=== PATIENT | female | born 1940 | race Caucasian/White ===

== ENCOUNTER 2019-10-31 09:52 | Outpatient (CLI) | payer MEDICARE, SELFPAY ==
[2019-10-31 11:28] LABS: Hemoglobin A1C 7.5 % (<5.7)
[2019-10-31 11:32] LABS: Alanine Aminotransferase 22 U/L (4-35); Albumin Level 4.6 g/dL (3.5-5.1); Alkaline Phosphatase 76 U/L (38-126); Aspartate Amino Transferase 33 U/L (14-36); Bilirubin,Total 0.5 mg/dL (0.2-1.3); Blood Urea Nitrogen 16 mg/dL (7-17); Calcium 9.3 mg/dL (8.4-10.2); Carbon Dioxide 26 mmol/L (22-30); Chloride 102 mmol/L (98-107); Cholesterol 146 mg/dL (0-200); Estimated Glomerular Filt Rate > 60; Glucose 155 mg/dL (65-105); HDL Direct 78 mg/dL; Potassium 4.7 mmol/L (3.4-5.0); Sodium 138 mmol/L (137-145); Triglycerides 74 mg/dL (<150)
[2019-10-31 11:37] LABS: MALB Creatinine Ratio 19.2 mg/g (0-30); Microalbumin Urine Random 29.7 mg/L (0-16.7)
[2019-10-31 11:43] LABS: LDL Cholesterol Direct 50 mg/dL
[2019-10-31 11:48] LABS: Free T4 Free Thyroxine 1.21 ng/mL (0.78-2.19)
[2019-10-31 12:03] LABS: Thyroid Stimulating Hormone 0.215 uIU/mL (0.465-4.680)
== END 2019-10-31 09:53 | disposition home or self-care (01) ==
PROVIDERS: PCP Internal Medicine; Visit Provider Internal Medicine
DX: Z79.899 Other long term (current) drug therapy (principal); I10 Essential (primary) hypertension; E03.9 Hypothyroidism, unspecified; E78.5 Hyperlipidemia, unspecified; R79.9 Abnormal finding of blood chemistry, unspecified
CPT/HCPCS: 36415; 80048; 80061; 80076; 82043; 82542; 83036; 84439; 84443

== ENCOUNTER 2019-11-04 11:19 | Outpatient (CLI) | payer MEDICARE, SELFPAY ==
--- NOTE | ~2019-11-04 | XR_ITS ---
EXAMINATION: XR hip BI wo pelvis EXAM DATE: 11/04/2019 11:46 INDICATION: No known recent injury provided at this time. Pain of the hips bilaterally. Low back pain . TECHNIQUE: Each hip imaged independently (separate right and also left hip) 'frog leg' and frontal p rojections for interpretation. There is no prior study for comparison. FINDINGS: No radiographic evidence of hip avascular necrosis. There is mild symmetric bilateral hip primary osteoarthritis. There are no acute fractures or dislocations identified. There is no subcut aneous gas. The soft tissue is unremarkable. Lower lumbar fusion hardware. IMPRESSION: Mild bilateral hip osteoarthritis. Reviewed, dictated and finalized at location A.
--- NOTE | ~2019-11-04 | XR_ITS ---
XR lumbar spine 2-3V DATE: 11/04/2019 11:46 INDICATION: Low back pain TECHNIQUE: AP, lateral, coned lateral lumbosacral views COMPARISON: 09/14/2018 MRI lumbar spine 08/29/2018 lumbar spine FINDINGS: Diffuse osteopenia. Mild dextroscoliosis of the lumbar spine. Status post L4 laminectomy and posterior spinal fusion by posterior bone grafts at L4-5 and pedicle s crews and rods at L3-L5 bilaterally. There is some lucency along the pedicle screws particularly at L 3 which may indicate loosening. There is degenerative change at the apophyseal joints in the lumbosacral area with associated minimal grade 1 anterolisthesis at L4-5. Moderate degenerative disc disease at L3-4 and L4-5. The sacroiliac joints appear normal. IMPRESSION: Status post L4 laminectomy and posterior spinal fusion at L3-L5 Mild dextro scoliosis Diffuse osteopenia Reviewed, dictated and finalized at location B.
--- NOTE | ~2019-11-04 | XR_ITS ---
XR sacroiliac joints min 3V DATE: 11/04/2019 11:46 INDICATION: Low back pain. No injury. TECHNIQUE: AP and bilateral oblique views of the sacroiliac joints COMPARISON: 07/26/2017 lumbar spine FINDINGS: The sacroiliac joints are intact without evidence of fracture, diastases or significant deg enerative change or ankylosis. Bilateral posterior lumbar spinal fusion is noted. IMPRESSION: Unremarkable sacroiliac joints Reviewed, dictated and finalized at Location A. Reviewed, dictated and finalized at location B.
== END 2019-11-04 11:20 | disposition home or self-care (01) ==
PROVIDERS: PCP Internal Medicine; Visit Provider Internal Medicine
DX: M16.0 Bilateral primary osteoarthritis of hip (principal); Z98.1 Arthrodesis status; M85.88 Other specified disorders of bone density and structure, other site; M51.36 Other intervertebral disc degeneration, lumbar region
CPT/HCPCS: 72100; 72202; 73521

== ENCOUNTER 2019-12-08 13:47 | Outpatient (CLI) | payer MEDICARE, SELFPAY ==
--- NOTE | ~2019-12-08 | DEXA_ITS ---
Bone Density Report Name: Carolina Carlisle Age: 79 Sex: Female Ethnicity: White Date of : 1940 Indication: osteopenia; monitoring treatment; height loss; prior fracture; Referring Provider: POLO PHAM Study: Bone densitometry was performed. Exam Date: December 08, 2019 Accession number: [id number] Bone Density: Region BMD T-score Z-score Classification AP Spine (L1, L2) 0.803 -1.6 0.8 Osteopenia Femoral Neck (Left) 0.584 -2.4 -0.2 Osteopenia Total Hip (Left) 0.756 -1.5 0.4 Osteopenia Total Hip Bilateral Avg 0.750 -1.6 0.4 Osteopenia Femoral Neck (Right) 0.612 -2.1 0.1 Osteopenia Total Hip (Right) 0.743 -1.6 0.3 Osteopenia World Health Organization criteria for BMD impression classify patients as: Normal (T-score at or above -1.0), Osteopenia (T-score between -1.0 and -2.5), or Osteoporosis (T-score at or below -2.5). 10-year Fracture Risk: FRAX not reported because: Prior hip or vertebral fracture Treated for osteoporosis Previous Exams: Region Exam Age BMD T-score BMD Change BMD Change Date g/cm2 vs Baseline vs Previous AP Spine(L1, L2) 12/08/2019 79 0.803 -1.6 -0.077(-8.8%)# -0.092(-10.3%) 10/10/2010 70 0.895 -0.8 0.015(1.7%) -0.018(-2.0%) 11/20/2006 66 0.913 -0.6 0.033(3.7%)* 0.033(3.7%)* 08/06/2003 63 0.880 -0.9 Total Hip(Left) 12/08/2019 79 0.756 -1.5 -0.085(-10.1%) -0.056(-6.9%)# 10/10/2010 70 0.812 -1.1 -0.029(-3.4%)* 0.040(5.1%)* 11/20/2006 66 0.772 -1.4 -0.069(-8.2%)* -0.069(-8.2%)* 08/06/2003 63 0.841 -0.8 Total Hip(Right) 12/08/2019 79 0.743 -1.6 -0.105(-12.4%) -0.061(-7.6%)# 10/10/2010 70 0.804 -1.1 -0.044(-5.2%)* 0.013(1.6%) 11/20/2006 66 0.791 -1.2 -0.057(-6.7%)* -0.057(-6.7%)* 08/06/2003 63 0.848 -0.8 *Denotes significance at 95% confidence level, LSC for AP Spine = 0.022 g/cm2, LSC for Total Hip = 0.027 g/cm2 Clinical Information Provided by Patient: Have had a previous hip or vertebral fracture Has had a low trauma fracture Is being treated for osteoporosis Has used the following medications: Vitamin D Patient maximum height was 66 Menopause Age: 57 No regular weight bearing exercise Drinks caffeinated beverages Onset of menses at age 16 Number of children 2 Impression: The patient has low bone mass, based on the Left Femoral Neck T-score. The patient has risk factors, including: previous fracture. No significant bone loss was observed
== END 2019-12-08 13:48 | disposition home or self-care (01) ==
LOC: ANHIMG 13:48
PROVIDERS: PCP Internal Medicine; Visit Provider Internal Medicine
DX: Z78.0 Asymptomatic menopausal state (principal); M85.89 Other specified disorders of bone density and structure, multiple sites
CPT/HCPCS: 77080

== ENCOUNTER 2019-12-16 07:37 | Outpatient (CLI) | payer MEDICARE, SELFPAY ==
--- NOTE | 2019-12-16 | ECHO_ITS ---
Patient Info Name: Carolina Carlisle Age: 79 years : 1940 Gender: Female Ht: 65 in Wt: 154 lbs BSA: 1.80 m2 HR: 64 bpm BP: 149 / 70 mmHg Technical Quality: Good Exam Date: 12/16/2019 8:01 AM Exam Location: [facility]monary Patient Status: Outpatient Admit Date: 12/16/2019 Staff Ordering Physician: Min Logan MD Public Health Analyst: Cristina Andre RDCS Attending Provider: Min Logan MD Referring Physician: Doreen BENAVIDES; Exam Type: CA echo doppler color flow Study Info Indications R07.89 - Other chest pain Complete two-dimensional, color flow and Doppler transthoracic echocardiogram is performed. Summary 1. Complete two-dimensional, color flow and Doppler transthoracic echocardiogram is performed. 2. Left ventricular chamber dimension is normal. 3. Left ventricular systolic function is normal, estimated at 60-65%. 4. The left ventricular diastolic function is grade I diastolic dysfunction. 5. E/e' 10 is mildly elevated. 6. Global longitudinal strain is normal at -20.9%. 7. Left atrial chamber dimension is mildly enlarged. 8. There is mild aortic valve sclerosis. 9. Dilated inferior vena cava with >50% collapse upon inspiration consistent with elevated right atrial pressure, 10 mmHg. Left Ventricle E/e' 10 is mildly elevated. Global longitudinal strain is normal at -20.9%. Left ventricular chamber dimension is normal. Left ventricular systolic function is normal, estimated at 60-65%. The left ventricular diastolic function is grade I diastolic dysfunction. Right Ventricle Right ventricular chamber dimension is normal. Right ventricular systolic function is normal. Left Atria Left atrial chamber dimension is mildly enlarged. Right Atria Right atrial chamber dimension is normal. Aortic Valve The aortic valve is trileaflet. There is mild aortic valve sclerosis. There is no aortic valve stenosis. There is no aortic valve regurgitation. Pulmonic Valve There is no pulmonic regurgitation. Mitral Valve There is no mitral valve stenosis. There is no mitral valve regurgitation. Tricuspid Valve There is no tricuspid valve regurgitation. Pericardium/Pleural There is no pericardial effusion. Inferior Vena Cava Dilated inferior vena cava with >50% collapse upon inspiration consistent with elevated right atrial pressure, 10 mmHg. Aorta The aortic root size at the sinus of Valsalva is normal. Left Ventricular Outflow Tract Name Value Normal LVOT 2D LVOT Diameter 2.0 cm LVOT Doppler LVOT Peak Gradient 4 mmHg LVOT Mean Gradient 2 mmHg LVOT VTI 25 cm LVOT VTI/AV VTI Ratio 0.8 LVOT Stroke Volume 83 ml LVOT CO 5.8 l/min LVOT CI 3.3 l/min/m2 Mitral Valve Name Value Normal
--- NOTE | 2019-12-16 | EST_ITS ---
Patient Info Name: Carolina Carlisle Age: 79 years : 1940 Gender: Female Ht: 65 in Wt: 154 lbs BSA: 1.80 m2 Exam Date: 12/16/2019 9:38 AM Exam Location: [facility] Stress Patient Status: Outpatient Admit Date: 12/16/2019 Staff Ordering Physician: Min Logan MD Attending Provider: Min Logan MD Exercise Technologist: Ragini Singh RDCS Exercise Physician: Merrick Winston DO Exam Type: CA stress vlad w NM Study Info Indications R07.9 - Chest pain, unspecified A regadenoson stress test was performed. Summary 1. 1. Negative lexiscan stress test for ischemic ST changes by ECG criteria. 2. 2. Baseline hypertension. 3. 3. Nuclear scan to follow and will be reported separately. Please correlate with it. 4. 4. Patient informed of the above results. Protocol: Lexiscan Stress ECG Details Stage: REST Duration (min): 5 min : 38 sec HR (bpm): 73 SBP (mmHg): 156 DBP (mmHg): 67 Stage: REST Duration (min): 12 min : 59 sec HR (bpm): 72 SBP (mmHg): 156 DBP (mmHg): 67 Stage: STAGE 1 Duration (min): 1 min : 0 sec HR (bpm): 111 SBP (mmHg): 155 DBP (mmHg): 47 Stage: RECOVERY Duration (min): 1 min : 0 sec HR (bpm): 110 SBP (mmHg): 153 DBP (mmHg): 53 Stage: RECOVERY Duration (min): 2 min : 0 sec HR (bpm): 104 SBP (mmHg): 153 DBP (mmHg): 53 Stage: RECOVERY Duration (min): 3 min : 0 sec HR (bpm): 103 SBP (mmHg): 147 DBP (mmHg): 55 Stage: RECOVERY Duration (min): 4 min : 0 sec HR (bpm): 97 SBP (mmHg): 147 DBP (mmHg): 55 Stage: RECOVERY Duration (min): 5 min : 0 sec HR (bpm): 90 SBP (mmHg): 140 DBP (mmHg): 57 Stage: RECOVERY Duration (min): 5 min : 5 sec HR (bpm): 89 SBP (mmHg): 140 DBP (mmHg): 57 Rest HR: 72 bpm Peak HR: 117 bpm Rest Sys BP: 156 mmHg Peak Sys BP: 155 mmHg Max Pred HR: 143 bpm % Max Pred HR: 82 % Target HR: 122 bpm Max RPP: 18,135 bpm*mmHg Termination Reason: Completed protocol Cardiac Symptoms: Shortness of breath Total Time: 1 min : 0 sec Rest Elmore BP: 67 mmHg Peak Elmore BP: 47 mmHg Total Dose: 0.4 mg Resting ECG Sinus rhythm. Stress ECG No ST changes. Arrhythmias None. Report Signatures
--- NOTE | ~2019-12-16 | NM_ITS ---
EXAMINATION: NM vlad stress w perfusion DATE: 12/16/2019 10:45 INDICATION: Chest pain TECHNIQUE: Rest images were obtained following intravenous administration of 10.2 mCi Tc99m tetrofosm in (Myoview). The patient was infused intravenously with Lexiscan (Regadenoson). Then, 22.4 mCi Tc99m tetrofosmin (Myoview) was administered intravenously, and stress images were obtained. Data was noé nstructed into short axis and horizontal and vertical long axis SPECT images. Gated SPECT images were also obtained. COMPARISON: None. FINDINGS: There is no definite reversible or fixed perfusion abnormality to suggest ischemia or infar ction. There is normal left ventricular chamber size, wall motion and ejection fraction. Left ventr icular ejection fraction measures >70%. IMPRESSION: 1. Normal myocardial perfusion at rest and during stress. 2. Left ventricular ejection fraction measuring >70%. Reviewed, dictated and finalized at location B.
[2019-12-16 08:59] LABS: Vitamin D 25 Hydroxy 61.2 ng/mL
== END 2019-12-16 07:38 | disposition home or self-care (01) ==
LOC: ANHCARD 07:42
PROVIDERS: PCP Internal Medicine; Visit Provider Internal Medicine
DX: M85.80 Other specified disorders of bone density and structure, unspecified site (principal); R07.9 Chest pain, unspecified; I10 Essential (primary) hypertension
CPT/HCPCS: 36415; 78452; 82306; 93017; 93306; A9502; J2785

== ENCOUNTER 2020-03-31 07:01 | Outpatient (CLI) | payer MEDICARE, SELFPAY ==
[2020-03-31 07:20] LABS: Basophils Percent Auto 0.4 % (0.2-1.2); Eosinophils Absolute Auto 0.2 K/mm3 (0-0.3); Eosinophils Percent Auto 3.1 % (0-4.4); Hematocrit 35.4 % (37.0-47.0); Hemoglobin 11.3 g/dL (12.0-15.0); Immature Granulocyte Absolute 0.01 K/mm3 (0.00-0.031); Immature Granulocyte Percent A 0.2 % (0-0.5); Lymphocytes Absolute Auto 2.02 K/mm3 (0.9-3.2); Lymphocytes Percent Auto 39.1 % (18.3-44.2); Mean Corpuscular HGB Conc 31.9 g/dl (32-36); Mean Corpuscular Hemoglobin 31.7 pg (26-34); Mean Corpuscular Volume 99.4 fl (80-100); Mean Platelet Volume 9.6 fl (7.4-10.4); Monocytes Absolute Auto 0.6 K/mm3 (0.1-0.6); Monocytes Percent Auto 11.2 % (2.6-8.5); Neutrophils Absolute Auto 2.4 K/mm3 (1.3-6.7); Platelet Count Result 173 k/mm3 (150-375); Red Blood Count 3.56 M/mm3 (4.2-5.4); Red Cell Distribution Width 12.4 % (11.5-14.5); White Blood Count 5.2 K/mm3 (4.5-10.0)
[2020-03-31 07:25] LABS: Hemoglobin A1C 6.4 % (<5.7)
[2020-03-31 07:33] LABS: Alanine Aminotransferase 20 U/L (4-35); Albumin Level 4.2 g/dL (3.5-5.1); Alkaline Phosphatase 56 U/L (38-126); Anion Gap 6 mmol/L (8-16); Aspartate Amino Transferase 27 U/L (14-36); Bilirubin,Total 0.5 mg/dL (0.2-1.3); Blood Urea Nitrogen 20 mg/dL (7-17); Calcium 9.5 mg/dL (8.4-10.2); Carbon Dioxide 31 mmol/L (22-30); Chloride 105 mmol/L (98-107); Cholesterol 125 mg/dL (0-200); Estimated Glomerular Filt Rate 54; Glucose 155 mg/dL (65-105); HDL Direct 70 mg/dL; Potassium 4.4 mmol/L (3.4-5.0); Sodium 142 mmol/L (137-145); Triglycerides 65 mg/dL (<150)
[2020-03-31 07:43] LABS: LDL Cholesterol Direct 38 mg/dL
[2020-03-31 08:02] LABS: Thyroid Stimulating Hormone 0.027 uIU/mL (0.465-4.680)
[2020-03-31 08:59] LABS: Free T4 Free Thyroxine 1.26 ng/mL (0.78-2.19); Vitamin D 25 Hydroxy 63.2 ng/mL
== END 2020-03-31 07:02 | disposition home or self-care (01) ==
PROVIDERS: PCP Internal Medicine; Visit Provider Internal Medicine
DX: E11.9 Type 2 diabetes mellitus without complications (principal); I10 Essential (primary) hypertension; Z79.899 Other long term (current) drug therapy; E03.9 Hypothyroidism, unspecified; E55.9 Vitamin D deficiency, unspecified; E78.5 Hyperlipidemia, unspecified
CPT/HCPCS: 36415; 80053; 80061; 82306; 83036; 84439; 84443; 85025

== ENCOUNTER 2020-05-17 11:27 | Outpatient (CLI) | payer MEDICARE, SELFPAY ==
[2020-05-17 12:32] LABS: Add Urine Microscopic? YES; Appearance Urine Clear (Clear); Bilirubin Urine Negative (Negative); Blood Urine Negative (Negative); Color Urine Straw (Yellow); Glucose Urine UA 3+ mg/dL (Negative); Ketones Urine Negative (Negative); Leukocyte Esterase Ur Trace LEU/UL (NEGATIVE); Mucus Urine Rare /lpf; Nitrate Urine Negative (Negative); Protein Urine Negative (Negative); RBC Urine 0-2 /hpf (0-2); Squamous Epithelial Cell Urine Rare /hpf (Few); Urobilinogen Urine Negative mg/dL (<2.0)
[2020-05-17 12:38] LABS: Specific Grav Ur 1.031 (1.001-1.035)
== END 2020-05-17 11:28 | disposition home or self-care (01) ==
LOC: ANHLAB 11:28
PROVIDERS: PCP Internal Medicine; Visit Provider Internal Medicine
DX: R35.0 Frequency of micturition (principal); R39.15 Urgency of urination
CPT/HCPCS: 81001; 87086

== ENCOUNTER 2020-05-24 08:31 | Outpatient (CLI) | payer MEDICARE, SELFPAY ==
--- NOTE | ~2020-05-24 | CT_ITS ---
EXAMINATION: CT chest abdomen pelvis w con DATE: 05/24/2020 09:19 NUTRITIONISTS INDICATION: Unintentional weight loss TECHNIQUE: Computed tomography (CT) of the chest, abdomen, and pelvis was performed with 100 cc Omnip aque 350 intravenous contrast. The dose-length product was 426.43 mGy-cm. Automated exposure control and iterative reconstruction technique were employed. COMPARISON: CT dated 01/02/2019 FINDINGS: CHEST CT: Mild apical pleural thickening/scarring. Dependent atelectasis. No endobronchial lesions. No focal ai rspace consolidation. No suspicious pulmonary nodules or masses. No pneumothorax. No evidence for aor tic aneurysm or dissection. Heart size normal. No thoracic lymphadenopathy. ABDOMEN/PELVIS CT: Fatty infiltration of the liver. The spleen, pancreas, adrenal glands and kidneys are unremarkable. G allbladder is present. Nonobstructive bowel gas pattern. Posterior surgical fusion at L3-L5. No osteo lytic or osteoblastic lesions. No significant vascular abnormality. No lymphadenopathy nonobstructive bowel gas pattern. No free air or free fluid. No abnormal pelvic masses or fluid collections. IMPRESSION: 1. No findings to account for abnormal weight loss. No acute abnormalities. Reviewed, dictated and finalized at location B. ITIONISTS
[2020-05-24 08:59] LABS: Estimated Glomerular Filt Rate > 60
== END 2020-05-24 08:32 | disposition home or self-care (01) ==
LOC: ANHIMG 08:33
PROVIDERS: PCP Internal Medicine; Visit Provider Internal Medicine
DX: R63.4 Abnormal weight loss (principal)
CPT/HCPCS: 71260; 74177; Q9967

== ENCOUNTER 2020-06-02 12:58 | Outpatient (CLI) | payer MEDICARE, SELFPAY ==
--- NOTE | ~2020-06-02 | MM_ITS ---
EXAMINATION: MM screening jacques BI w tommy HISTORY: Screening TECHNIQUE: Craniocaudal and mediolateral oblique 3-D tomosynthesis images were obtained and synthetic 2-D images were generated. CAD analysis was submitted and interpreted. COMPARISON: Comparison to multiple prior studies sequentially, with oldest reviewed study dated 10/10. BREAST PARENCHYMAL COMPOSITION: There are scattered areas of fibroglandular density. FINDINGS: There is no evidence of suspicious mass, calcification, or architectural distortion to sugg est malignancy in either breast. There has been no suspicious interval change. IMPRESSION: 1. No mammographic evidence of malignancy. 2. Recommend routine screening mammography in one year. BI-RADS Category 1: Negative Reviewed, dictated and finalized at location D. BODIED WATCHMAN
== END 2020-06-02 12:59 | disposition home or self-care (01) ==
LOC: ANHIMG 13:01
PROVIDERS: PCP Internal Medicine; Visit Provider Internal Medicine
DX: Z12.31 Encounter for screening mammogram for malignant neoplasm of breast (principal)
CPT/HCPCS: 77063; 77067

== ENCOUNTER → 2020-06-28 02:49 | Outpatient (CLI) | payer MEDICARE, SELFPAY ==
[2020-06-28 21:05] LABS: SARS-CoV-2 RNA PCR Negative
== END ==
PROVIDERS: PCP Internal Medicine; Visit Provider Internal Medicine Gastroenterology
DX: Z01.812 Encounter for preprocedural laboratory examination (principal); Z20.822 Contact with and (suspected) exposure to COVID-19
CPT/HCPCS: C9803; U0003; U0005

== ENCOUNTER 2020-07-01 01:11 | Day surgery (SDC) | payer MEDICARE, SELFPAY ==
[2020-05-25 11:45] VITALS: BMI 24.5
--- NOTE | 2020-06-15 13:10 | PC.NURSE ---
Pt provided with new date and time of COVID test and procedure. pt denies any changes from previous interview. pt has no further questions
--- NOTE | 2020-07-01 07:20 | PM.HPGS ---
History of Present Illness History of Present Illness Consent: Risks, benefits, and alternatives have been discussed and questions answered. Patient agrees to proceed with procedure. Chief complaint: neoplasm screening Narrative: Carolina Domínguez is a 80 year old female Here for colon cancer screening. Her last colonoscopy was 10 years ago Review of Systems Review of Systems: All systems reviewed & are unremarkable except as noted in HPI and below PMFSH Past Medical History Medical History Abdominal bloating Abnormal finding of blood chemistry, unspecified Anxiety Arthritis Benign essential hypertension Bilateral flank pain Bilateral hip pain Bleeding nose BMI 23.0-23.9, adult BMI 25.0-25.9,adult BMI 26.0-26.9,adult Breast cancer screening Chest pain Chronic low back pain Chronic SI joint pain Colon cancer screening Degenerative joint disease (DJD) of hip Depression Diabetes Dizziness Encounter for Medicare annual wellness exam GERD (gastroesophageal reflux disease) Hearing loss Hypothyroidism (acquired) Impacted cerumen of both ears Lumbar spondylosis Mixed hyperlipidemia On financial aid counselor drug therapy Pedal edema Personal history of covid-19 Restrictive lung disease Seasonal allergies Unintentional weight loss Vertigo Vision abnormalities Surgical History Surgical History History of back surgery L 3-4-5 fusion Family History Family History Mother Hypertension Family history of malignant neoplasm Father Hypertension Family history of Alzheimer's disease Family history of chronic obstructive pulmonary disease Family history of dementia Sibling Family history of diabetes mellitus in first degree relative Social History Social History Smoking status: Never smoker Alcohol intake: current Substance use type: does not use Living arrangements: with family Spiritual care concerns: No Meds Home Medications and Allergies Home Medications Medication Instructions Recorded Confirmed Type aspirin 81 mg tablet,delayed 81 mg PO DAILY 05/01/19 05/25/20 History release multivit with 1 tablet PO DAILY 05/01/19 05/25/20 History wftvwnmh-jnyr-MH-lutein 8 mg iron-400 mcg-300 mcg tablet omega-3 fatty acids 1,000 mg 2,000 mg PO BID cap 05/01/19 05/25/20 History capsule losartan 100 mg tablet 100 mg PO DAILY #90 tablet 05/12/20 02/09/21 Rx famotidine 40 mg tablet 40 mg PO BID #180 tablet 10/30/19 05/25/20 Rx fluticasone propionate 50 2 spray NASAL DAILY #36.4 ml 11/04/19 05/25/20 Rx mcg/actuation nasal spray,suspension blood sugar diagnostic #100 each 11/21/19 05/17/20 Rx blood-glucose meter #1 each 11/21/19 05/17/20 Rx lancets 33 gauge #100 each 12/03/19 05/17/20 Rx escitalopram oxalate 10 mg tablet See Rx Instructions .ROUTE 01/02/20 05/25/20 Rx .COMPLEX #90 tablet trazodone 50 mg tablet See Rx Instructions PO .COMPLEX 03/03/20 05/25/20 Rx #180 tablet gabapentin 100 mg capsule See Rx Instructions .ROUTE 04/14/20 05/25/20 Rx .COMPLEX #180 cap sodium,potassium,mag sulfates 17.5 See Rx Instructions PO .COMPLEX 05/21/20 Rx gram-3.13 gram-1.6 gram oral soln #354 ml canagliflozin-metformin [Invokamet 1 tablet PO QAM 05/25/20 05/25/20 History XR] rosuvastatin 20 mg tablet See Rx Instructions .ROUTE 06/14/20 Rx .COMPLEX #90 tablet levothyroxine 88 mcg capsule 88 mcg PO DAILY 06/29/20 History Allergies Allergy/AdvReac Type Severity Reaction Status Date / Time tizanidine AdvReac Intermediate Confusion Verified 06/15/20 13:09 Exam Const: General: alert Orientation/consciousness: patient oriented x3 Resp: Auscultation: clear to auscultation bilaterally Cardio: Rhythm: regular rhythm GI: GI Palp: Yes Soft to palpation and No
[2020-07-01 07:25] VITALS: BP 135/56; PULSE 96; RESP 16; TEMP 36.9; O2SAT 97; BMI 23.7
[2020-07-01] MEDS: LACTATED RINGERS 1,000 ML 150 ML IV CONT (07:41)
[2020-07-01 07:42] LABS: Glucose Point of Care 143 (65-105)
--- NOTE | 2020-07-01 08:08 | WPDANESEPPF ---
Anes - Initial Pre Proc Eval Procedure: Operation Date: 07/01/20 08:30 Proposed Procedures p Screening Colonoscopy - Rafi Jones MD Date/Time: 07/01/20 08:08 Surgeon: Rafi Jones MD Pre Op Diagnosis: neoplasm screening Patient Data Age: 80 Gender: F Height: 5 ft 4 in Weight: 62.7 kg Last Vital Signs Temp 98.4 F 07/01/20 07:25 Pulse 96 07/01/20 07:25 Resp 16 07/01/20 07:25 BP 135/56 L 07/01/20 07:25 Pulse Ox 97 07/01/20 07:25 Allergies Allergy/AdvReac Type Severity Reaction Status Date / Time tizanidine AdvReac Intermediate Confusion Verified 07/01/20 07:24 Home Medications Medication Instructions Recorded Confirmed Type aspirin 81 mg tablet,delayed 81 mg PO DAILY 05/01/19 05/25/20 History release multivit with 1 tablet PO DAILY 05/01/19 05/25/20 History rjzneaqp-paxq-FG-lutein 8 mg iron-400 mcg-300 mcg tablet omega-3 fatty acids 1,000 mg 2,000 mg PO BID cap 05/01/19 05/25/20 History capsule losartan 100 mg tablet 100 mg PO DAILY #90 tablet 08/26/19 05/25/20 Rx famotidine 40 mg tablet 40 mg PO BID #180 tablet 10/30/19 05/25/20 Rx fluticasone propionate 50 2 spray NASAL DAILY #36.4 ml 11/04/19 05/25/20 Rx mcg/actuation nasal spray,suspension blood sugar diagnostic #100 each 11/21/19 05/17/20 Rx blood-glucose meter #1 each 11/21/19 05/17/20 Rx lancets 33 gauge #100 each 12/03/19 05/17/20 Rx escitalopram oxalate 10 mg tablet See Rx Instructions .ROUTE 01/02/20 05/25/20 Rx .COMPLEX #90 tablet trazodone 50 mg tablet See Rx Instructions PO .COMPLEX 03/03/20 05/25/20 Rx #180 tablet gabapentin 100 mg capsule See Rx Instructions .ROUTE 04/14/20 05/25/20 Rx .COMPLEX #180 cap sodium,potassium,mag sulfates 17.5 See Rx Instructions PO .COMPLEX 05/21/20 Rx gram-3.13 gram-1.6 gram oral soln #354 ml canagliflozin-metformin [Invokamet 1 tablet PO QAM 05/25/20 05/25/20 History XR] rosuvastatin 20 mg tablet See Rx Instructions .ROUTE 06/14/20 Rx .COMPLEX #90 tablet levothyroxine 88 mcg capsule 88 mcg PO DAILY 06/29/20 History Laboratory Tests 07/01/20 07:38 POC Capillary Glucose 143 mg/dl H mg/dl (65-105) Patient hx anesthesia problems: none Family hx anesthesia problems: none PMFSH Past Medical History Medical History Abdominal bloating Abnormal finding of blood chemistry, unspecified Anxiety Arthritis Benign essential hypertension Bilateral flank pain Bilateral hip pain Bleeding nose BMI 23.0-23.9, adult BMI 25.0-25.9,adult BMI 26.0-26.9,adult Breast cancer screening Chest pain Chronic low back pain Chronic SI joint pain Colon cancer screening Degenerative joint disease (DJD) of hip Depression Diabetes Dizziness Encounter for Medicare annual wellness exam GERD (gastroesophageal reflux disease) Hearing loss Hypothyroidism (acquired) Impacted cerumen of both ears Lumbar spondylosis Mixed hyperlipidemia On alf drug therapy Pedal edema Personal history of covid-19 Restrictive lung disease Seasonal allergies Unintentional weight loss Vertigo Vision abnormalities Surgical History Surgical History History of back surgery L 3-4-5 fusion Family History Family History Mother Hypertension Family history of malignant neoplasm Father Hypertension Family history of Alzheimer's disease Family history of chronic obstructive pulmonary disease Family history of dementia Sibling Family history of diabetes mellitus in first degree relative Social History Social History Smoking status: Never smoker Alcohol intake: current Substance use type: does not use Living arrangements: with family Spiritual care concerns: No Anes - Eval Final PreProcedure Day of Procedure 07/01/20 0
[2020-07-01 08:41] VITALS: BP 103/52; PULSE 74; RESP 15; O2SAT 96
[2020-07-01 08:51] VITALS: BP 115/56; PULSE 78; RESP 15; O2SAT 97
[2020-07-01 09:01] VITALS: BP 141/76; PULSE 82; RESP 15; O2SAT 97
== END 2020-07-01 09:26 | disposition home or self-care (01) ==
PROVIDERS: PCP Internal Medicine; Visit Provider Internal Medicine Gastroenterology
PROC: 0DJD8ZZ Inspection of Lower Intestinal Tract, Via Natural or Artificial Opening Endoscopic (ICD-10-PCS; CPT 45378; principal; 2020-07-01 08:30)
DX: Z12.11 Encounter for screening for malignant neoplasm of colon (principal); D12.2 Benign neoplasm of ascending colon; I10 Essential (primary) hypertension; F41.8 Other specified anxiety disorders; E11.9 Type 2 diabetes mellitus without complications; K21.9 Gastro-esophageal reflux disease without esophagitis; E03.9 Hypothyroidism, unspecified; E78.2 Mixed hyperlipidemia; Z86.16 Personal history of COVID-19; Z79.84 Long term (current) use of oral hypoglycemic drugs; Z98.1 Arthrodesis status
CPT/HCPCS: 45385; 45381; 82948; 88305; C9803; J2704; J7120; U0003; U0005

== ENCOUNTER 2020-10-04 09:03 | Outpatient (CLI) | payer MEDICARE, SELFPAY ==
[2020-10-04 09:36] LABS: Basophils Percent Auto 0.7 % (0.2-1.2); Eosinophils Absolute Auto 0.2 K/mm3 (0-0.3); Eosinophils Percent Auto 3.9 % (0-4.4); Hematocrit 41.2 % (37.0-47.0); Hemoglobin 12.6 g/dL (12.0-15.0); Immature Granulocyte Absolute 0.01 K/mm3 (0.00-0.031); Immature Granulocyte Percent A 0.2 % (0-0.5); Lymphocytes Absolute Auto 1.37 K/mm3 (0.9-3.2); Lymphocytes Percent Auto 31.2 % (18.3-44.2); Mean Corpuscular HGB Conc 30.6 g/dl (32-36); Mean Corpuscular Volume 101.5 fl (80-100); Mean Platelet Volume 9.6 fl (7.4-10.4); Monocytes Absolute Auto 0.4 K/mm3 (0.1-0.6); Monocytes Percent Auto 9.1 % (2.6-8.5); Neutrophils Absolute Auto 2.4 K/mm3 (1.3-6.7); Neutrophils Percent Auto 54.9 % (45.5-73.1); Platelet Count Result 192 k/mm3 (150-375); Red Blood Count 4.06 M/mm3 (4.2-5.4); Red Cell Distribution Width 13.1 % (11.5-14.5); White Blood Count 4.4 K/mm3 (4.5-10.0)
[2020-10-04 09:39] LABS: Add Urine Microscopic? YES; Appearance Urine Clear (Clear); Bilirubin Urine Negative (Negative); Blood Urine Negative (Negative); Color Urine Yellow (Yellow); Glucose Urine UA 3+ mg/dL (Negative); Ketones Urine Negative (Negative); Leukocyte Esterase Ur Trace LEU/UL (NEGATIVE); Mucus Urine Rare /lpf; Nitrate Urine Negative (Negative); Protein Urine Negative (Negative); Specific Grav Ur 1.027 (1.001-1.035); Urobilinogen Urine Negative mg/dL (<2.0)
[2020-10-04 09:44] LABS: Hemoglobin A1C 6.9 % (<5.7)
[2020-10-04 09:51] LABS: Alanine Aminotransferase 17 U/L (4-35); Albumin Level 4.7 g/dL (3.5-5.1); Alkaline Phosphatase 67 U/L (38-126); Anion Gap 7 mmol/L (8-16); Aspartate Amino Transferase 38 U/L (14-36); Bilirubin,Total 0.6 mg/dL (0.2-1.3); Blood Urea Nitrogen 19 mg/dL (7-17); Calcium 9.9 mg/dL (8.4-10.2); Carbon Dioxide 31 mmol/L (22-30); Chloride 104 mmol/L (98-107); Cholesterol 261 mg/dL (0-200); Estimated Glomerular Filt Rate > 60; Glucose 147 mg/dL (65-105); HDL Direct 94 mg/dL; Potassium 4.8 mmol/L (3.4-5.0); Sodium 142 mmol/L (137-145); Triglycerides 78 mg/dL (<150)
[2020-10-04 10:01] LABS: LDL Cholesterol Direct 110 mg/dL
[2020-10-04 10:19] LABS: Free T4 Free Thyroxine 0.97 ng/mL (0.78-2.19)
[2020-10-09 00:16] LABS: Vitamin D 1,25 (OH)2 Total 41 pg/mL (18-72); Vitamin D2 1,25 (OH)2 <8 pg/mL; Vitamin D3 1,25 (OH)2 41 pg/mL
== END 2020-10-04 09:04 | disposition home or self-care (01) ==
PROVIDERS: PCP Internal Medicine; Visit Provider Internal Medicine
DX: E03.9 Hypothyroidism, unspecified (principal); Z79.899 Other long term (current) drug therapy; E78.2 Mixed hyperlipidemia; E11.9 Type 2 diabetes mellitus without complications; I10 Essential (primary) hypertension; E55.9 Vitamin D deficiency, unspecified
CPT/HCPCS: 36415; 80053; 80061; 81001; 82652; 83036; 84439; 84443; 85025

== ENCOUNTER → 2020-10-25 10:25 | Outpatient (CLI) | payer MEDICARE, SELFPAY ==
--- NOTE | ~2020-10-25 | US_ITS ---
EXAMINATION: US pelvic complete w TV EXAM DATE: 10/25/2020 10:59 INDICATION: N95.0 - Postmenopausal bleeding. TECHNIQUE: Pelvic transabdominal and transvaginal sonogram was performed. There are multiple graysca le and Doppler images available for interpretation. Comparison is made to prior examination from 2014. FINDINGS: Uterus measures 4.9 x 2.0 x 2.8 cm, and is morphologically normal. Endometrial stripe dawson sures 3 mm, within normal limits. There is no free pelvic fluid. Right adnexa: The ovary is not identified. There is no adnexal mass. Left adnexa: The ovary is not identified. There is no adnexal mass. IMPRESSION: Atrophic but otherwise unremarkable uterus. Reviewed, dictated and finalized at location A.
== END ==
PROVIDERS: PCP Internal Medicine; Visit Provider Obstetrics & Gynecology
DX: N95.0 Postmenopausal bleeding (principal)
CPT/HCPCS: 76830; 76856

== ENCOUNTER 2021-02-14 09:45 | Outpatient (CLI) | payer MEDICARE, SELFPAY ==
[2021-02-14 12:14] LABS: Hemoglobin A1C 6.8 % (<5.7)
[2021-02-14 14:08] LABS: Alanine Aminotransferase 22 U/L (4-35); Albumin Level 4.3 g/dL (3.5-5.1); Alkaline Phosphatase 66 U/L (38-126); Anion Gap 6 mmol/L (8-16); Aspartate Amino Transferase 36 U/L (14-36); Bilirubin,Total 0.7 mg/dL (0.2-1.3); Blood Urea Nitrogen 21 mg/dL (7-17); Calcium 9.6 mg/dL (8.4-10.2); Carbon Dioxide 32 mmol/L (22-30); Chloride 104 mmol/L (98-107); Cholesterol 149 mg/dL (0-200); Estimated Glomerular Filt Rate 53; Glucose 137 mg/dL (65-110); HDL Direct 80 mg/dL; Potassium 4.4 mmol/L (3.4-5.0); Sodium 142 mmol/L (137-145); Triglycerides 72 mg/dL (<150)
[2021-02-14 14:19] LABS: LDL Cholesterol Direct 48 mg/dL
[2021-02-14 14:37] LABS: Thyroid Stimulating Hormone 0.807 uIU/mL (0.465-4.680)
[2021-02-14 14:53] LABS: Free T4 Free Thyroxine 1.09 ng/mL (0.78-2.19)
[2021-02-17 05:52] LABS: Homocysteine 12.3 umol/L (<10.4)
== END 2021-02-14 09:46 | disposition home or self-care (01) ==
PROVIDERS: PCP Internal Medicine; Visit Provider Internal Medicine
DX: E03.9 Hypothyroidism, unspecified (principal); R79.89 Other specified abnormal findings of blood chemistry; I10 Essential (primary) hypertension; E78.2 Mixed hyperlipidemia; E11.9 Type 2 diabetes mellitus without complications
CPT/HCPCS: 36415; 80053; 80061; 83036; 83090; 84439; 84443

== ENCOUNTER 2021-02-17 10:51 | Outpatient (CLI) | payer MEDICARE, SELFPAY ==
[2021-02-17 11:49] LABS: CRP < 0.5 mg/dL (<1.0); Creatine Kinase 53 U/L (30-135)
[2021-02-17 12:31] LABS: Erythrocyte Sedimentation Rate 39 mm/hr (0-20)
[2021-02-21 12:50] LABS: Aldolase 3.2 U/L (<=8.1)
== END 2021-02-17 10:52 | disposition home or self-care (01) ==
PROVIDERS: PCP Internal Medicine; Visit Provider Internal Medicine
DX: M79.10 Myalgia, unspecified site (principal); R53.1 Weakness
CPT/HCPCS: 36415; 82085; 82550; 85652; 86140

== ENCOUNTER 2021-04-20 10:42 | Outpatient (CLI) | payer MEDICARE, SELFPAY ==
[2021-04-20 11:05] LABS: Basophils Percent Auto 0.7 % (0.2-1.2); Eosinophils Absolute Auto 0.1 K/mm3 (0-0.3); Eosinophils Percent Auto 1.4 % (0-4.4); Hemoglobin 11.4 g/dL (12.0-15.0); Immature Granulocyte Absolute 0.01 K/mm3 (0.00-0.031); Immature Granulocyte Percent A 0.2 % (0-0.5); Lymphocytes Absolute Auto 1.35 K/mm3 (0.9-3.2); Lymphocytes Percent Auto 31.9 % (18.3-44.2); Mean Corpuscular HGB Conc 31.7 g/dl (32-36); Mean Corpuscular Hemoglobin 31.5 pg (26-34); Mean Corpuscular Volume 99.4 fl (80-100); Mean Platelet Volume 9.3 fl (7.4-10.4); Monocytes Absolute Auto 0.4 K/mm3 (0.1-0.6); Monocytes Percent Auto 8.7 % (2.6-8.5); Neutrophils Absolute Auto 2.4 K/mm3 (1.3-6.7); Neutrophils Percent Auto 57.1 % (45.5-73.1); Platelet Count Result 193 k/mm3 (150-375); Red Blood Count 3.62 M/mm3 (4.2-5.4); Red Cell Distribution Width 12.6 % (11.5-14.5); White Blood Count 4.2 K/mm3 (4.5-10.0)
[2021-04-20 11:23] LABS: Anion Gap 8 mmol/L (8-16); Blood Urea Nitrogen 12 mg/dL (7-17); Calcium 9.1 mg/dL (8.4-10.2); Carbon Dioxide 26 mmol/L (22-30); Chloride 105 mmol/L (98-107); Estimated Glomerular Filt Rate 60; Glucose 203 mg/dL (65-110); Potassium 4.5 mmol/L (3.4-5.0); Sodium 139 mmol/L (137-145)
== END 2021-04-20 10:43 | disposition home or self-care (01) ==
PROVIDERS: PCP Internal Medicine; Visit Provider Internal Medicine
DX: R19.7 Diarrhea, unspecified (principal); I10 Essential (primary) hypertension; Z79.899 Other long term (current) drug therapy
CPT/HCPCS: 36415; 80048; 85025

== ENCOUNTER 2021-04-23 13:44 | Outpatient (CLI) | payer MEDICARE, SELFPAY | END 2021-04-23 13:45 | disposition home or self-care (01) | PROVIDERS: PCP Internal Medicine; Visit Provider Internal Medicine | DX: R19.7 Diarrhea, unspecified (principal) | CPT/HCPCS: 87045; 87324; 87427; 89055 ==

== ENCOUNTER 2021-05-02 00:29 | Day surgery (SDC) | payer MEDICARE, SELFPAY ==
--- NOTE | 2021-05-01 19:15 | PM.HPGS ---
History of Present Illness History of Present Illness Consent: Risks, benefits, and alternatives have been discussed and questions answered. Patient agrees to proceed with procedure. Chief complaint: hx of colon polyps Narrative: Carolina Domínguez is a 81 year old female hwo retturns for colonoscopy as she had incomplete removal of a broad based polyp 1 yeear ago. Review of Systems Review of Systems: All systems reviewed & are unremarkable except as noted in HPI and below PMFSH Past Medical History Medical History Abdominal bloating Abnormal finding of blood chemistry, unspecified Abnormal vaginal bleeding in postmenopausal patient Anxiety Arthritis Benign essential hypertension Bilateral flank pain Bilateral hip pain Chronic low back pain Chronic SI joint pain Colon cancer screening Degenerative joint disease (DJD) of hip Depression Diabetes Diarrhea Dry eye Elevated homocysteine GERD (gastroesophageal reflux disease) Hearing loss Hx of colonic polyps Hypertension Hypothyroidism (acquired) Lumbar spondylosis Macular degeneration MDD (major depressive disorder) Microscopic hematuria Missed x3 Mixed hyperlipidemia Muscular aches Pedal edema Personal history of covid-19 Restrictive lung disease Seasonal allergies Skin mole Unintentional weight loss Vaginal delivery x1 Vertigo Vision abnormalities Surgical History Surgical History H/O dilation and curettage History of back surgery L 3-4-5 fusion History of bilateral tubal ligation History of section x1 History of eye surgery cataract removal both eyes Family History Family History Mother Hypertension Family history of malignant neoplasm Father Hypertension Family history of Alzheimer's disease Family history of chronic obstructive pulmonary disease Family history of dementia Sibling Family history of diabetes mellitus in first degree relative Social History Social History Smoking status: Never smoker Alcohol intake: never Alcohol use details: wine occasionally Substance use: never Substance use type: does not use Living arrangements: with family Spiritual care concerns: No Meds Home Medications and Allergies Home Medications Medication Instructions Recorded Confirmed Type aspirin 81 mg tablet,delayed 81 mg PO DAILY 05/01/19 05/02/21 History release multivit with 1 tablet PO DAILY 05/01/19 05/02/21 History bvmqszry-dutj-ON-lutein 8 mg iron-400 mcg-300 mcg tablet omega-3 fatty acids 1,000 mg 2,000 mg PO BID cap 05/01/19 05/02/21 History capsule blood sugar diagnostic #100 each 11/21/19 05/02/21 Rx blood-glucose meter #1 each 11/21/19 05/02/21 Rx lancets 33 gauge #100 each 12/03/19 05/02/21 Rx losartan 100 mg tablet See Rx Instructions .ROUTE 08/09/20 05/02/21 Rx .COMPLEX #90 tablet famotidine 40 mg tablet 40 mg PO BID #180 tablet 09/07/20 05/02/21 Rx gabapentin 100 mg capsule See Rx Instructions .ROUTE 09/07/20 05/02/21 Rx .COMPLEX #540 cap escitalopram oxalate 10 mg tablet See Rx Instructions .ROUTE 10/05/20 05/02/21 Rx .COMPLEX #90 tablet calcium carbonate 600 mg calcium 600 mg PO BID 10/19/20 05/02/21 History (1,500 mg) tablet coenzyme K53-gbubfhy E 100 mg-100 1 cap PO DAILY 10/19/20 05/02/21 History unit capsule dapagliflozin 2.5 mg-metformin ER 1 tablet PO DAILY 10/19/20 05/02/21 History 1,000 mg tablet,extended release 24h trazodone 50 mg tablet See Rx Instructions PO .COMPLEX 12/28/20 05/02/21 Rx #180 tablet metformin 1,000 mg tablet 1,000 mg PO .COMPLEX #90 tablet 02/25/21 05/02/21 Rx levothyroxine 88 mcg capsule 88 mcg PO DAILY #90 cap 03/17/21 05/02/21 Rx ezetimibe 10 mg tablet 10 mg PO DAILY #90 tablet 03/21/21 05/02/21 Rx
[2021-05-02 08:08] VITALS: BP 141/59; PULSE 73; RESP 16; TEMP 36.5; O2SAT 98; BMI 22.5
--- NOTE | 2021-05-02 08:37 | WPDANESEPPF ---
Anes - Initial Pre Proc Eval Procedure: Operation Date: 05/02/21 09:00 Proposed Procedures p Screening Colonoscopy - Rafi Jones MD Date/Time: 05/02/21 08:37 Surgeon: Rafi Jones MD Pre Op Diagnosis: hx of colon polyps Patient Data Age: 81 Gender: F Height: 1.65 m Weight: 61.5 kg Last Vital Signs Temp 36.5 C 05/02/21 08:08 Pulse 73 05/02/21 08:08 Resp 16 05/02/21 08:08 BP 141/59 H 05/02/21 08:08 Pulse Ox 98 05/02/21 08:08 Allergies Allergy/AdvReac Type Severity Reaction Status Date / Time tizanidine AdvReac Intermediate Confusion Verified 05/02/21 08:21 Home Medications Medication Instructions Recorded Confirmed Type aspirin 81 mg tablet,delayed 81 mg PO DAILY 05/01/19 05/02/21 History release multivit with 1 tablet PO DAILY 05/01/19 05/02/21 History vnwgziqy-rfjl-FJ-lutein 8 mg iron-400 mcg-300 mcg tablet omega-3 fatty acids 1,000 mg 2,000 mg PO BID cap 05/01/19 05/02/21 History capsule blood sugar diagnostic #100 each 11/21/19 05/02/21 Rx blood-glucose meter #1 each 11/21/19 05/02/21 Rx lancets 33 gauge #100 each 12/03/19 05/02/21 Rx losartan 100 mg tablet See Rx Instructions .ROUTE 08/09/20 05/02/21 Rx .COMPLEX #90 tablet famotidine 40 mg tablet 40 mg PO BID #180 tablet 09/07/20 05/02/21 Rx gabapentin 100 mg capsule See Rx Instructions .ROUTE 09/07/20 05/02/21 Rx .COMPLEX #540 cap escitalopram oxalate 10 mg tablet See Rx Instructions .ROUTE 10/05/20 05/02/21 Rx .COMPLEX #90 tablet calcium carbonate 600 mg calcium 600 mg PO BID 10/19/20 05/02/21 History (1,500 mg) tablet coenzyme E03-jobqvbd E 100 mg-100 1 cap PO DAILY 10/19/20 05/02/21 History unit capsule dapagliflozin 2.5 mg-metformin ER 1 tablet PO DAILY 10/19/20 05/02/21 History 1,000 mg tablet,extended release 24h trazodone 50 mg tablet See Rx Instructions PO .COMPLEX 12/28/20 05/02/21 Rx #180 tablet metformin 1,000 mg tablet 1,000 mg PO .COMPLEX #90 tablet 02/25/21 05/02/21 Rx levothyroxine 88 mcg capsule 88 mcg PO DAILY #90 cap 03/17/21 05/02/21 Rx ezetimibe 10 mg tablet 10 mg PO DAILY #90 tablet 03/21/21 05/02/21 Rx vit C 250 mg-vit E 90 mg-zinc 40 1 tablet PO BID 03/21/21 05/02/21 History mg-copper 1 aa-dlzrey-casyfi capsule Patient hx anesthesia problems: none Family hx anesthesia problems: none Results Review: All pre-operative results and documents have been reviewed as part of the pre-operative evaluation. [facility] Past Medical History Medical History Abdominal bloating Abnormal finding of blood chemistry, unspecified Abnormal vaginal bleeding in postmenopausal patient Anxiety Arthritis Benign essential hypertension Bilateral flank pain Bilateral hip pain Chronic low back pain Chronic SI joint pain Colon cancer screening Degenerative joint disease (DJD) of hip Depression Diabetes Diarrhea Dry eye Elevated homocysteine GERD (gastroesophageal reflux disease) Hearing loss Hx of colonic polyps Hypertension Hypothyroidism (acquired) Lumbar spondylosis Macular degeneration MDD (major depressive disorder) Microscopic hematuria Missed x3 Mixed hyperlipidemia Muscular aches Pedal edema Personal history of covid-19 Restrictive lung disease Seasonal allergies Skin mole Unintentional weight loss Vaginal delivery x1 Vertigo Vision abnormalities Surgical History Surgical History H/O dilation and curettage History of back surgery L 3-4-5 fusion History of bilateral tubal ligation History of section x1 History of eye surgery cataract removal both eyes Family History Family History Mother Hypertension Family history of malignant neoplasm Father Hypertension Family history of Alzheimer's disease Family history of chronic obstructive pulmonary disease F
[2021-05-02] MEDS: LACTATED RINGERS 1,000 ML 150 ML IV CONT (08:38)
[2021-05-02 08:39] LABS: Glucose Point of Care 138 mg/dl (65-105)
[2021-05-02 09:20] VITALS: BP 94/46; PULSE 70; RESP 18; O2SAT 98
[2021-05-02 09:30] VITALS: BP 114/59; PULSE 72; RESP 18; O2SAT 99
[2021-05-02 09:40] VITALS: BP 132/58; PULSE 74; RESP 18; O2SAT 98
== END 2021-05-02 10:00 | disposition home or self-care (01) ==
PROVIDERS: PCP Internal Medicine; Visit Provider Internal Medicine Gastroenterology
PROC: 0DJD8ZZ Inspection of Lower Intestinal Tract, Via Natural or Artificial Opening Endoscopic (ICD-10-PCS; CPT 45378; principal; 2021-05-02 09:00)
DX: Z12.11 Encounter for screening for malignant neoplasm of colon (principal); D12.2 Benign neoplasm of ascending colon; I10 Essential (primary) hypertension; E11.9 Type 2 diabetes mellitus without complications; E78.2 Mixed hyperlipidemia; F41.8 Other specified anxiety disorders; E03.9 Hypothyroidism, unspecified; Z98.1 Arthrodesis status; Z79.82 Long term (current) use of aspirin; Z79.84 Long term (current) use of oral hypoglycemic drugs
CPT/HCPCS: 45381; 45388; 82948; 88305; J2704; J7120

== ENCOUNTER 2021-05-25 07:42 | Outpatient (CLI) | payer MEDICARE, SELFPAY ==
--- NOTE | ~2021-05-25 | US_ITS ---
EXAMINATION: US pelvic complete EXAM DATE: 05/25/2021 08:50 INDICATION: R19.5 - Other fecal abnormalities. Postmenopausal bleeding last year follow-up exam. TECHNIQUE: Pelvic transabdominal sonogram was performed. There are multiple grayscale and Doppler im ages available for interpretation. Comparison is made to prior examination from 10/25/2020. FINDINGS: Uterus measures 4.2 x 1.7 x 2.0 cm, and is morphologically normal. Endometrial stripe dawson sures 2 mm, within normal limits. There is no free pelvic fluid. Right adnexa: The ovary measures 1.9 x 1.3 x 2.0 cm and is morphologically normal. Ovarian vascular f low confirmed. Left adnexa: The ovary is not identified. There is no adnexal mass. IMPRESSION: Unremarkable pelvic ultrasound exam. Reviewed, dictated and finalized at location B. T ATTENDANT
--- NOTE | ~2021-05-25 | US_ITS ---
EXAMINATION: US abdomen limited EXAM DATE: 05/25/2021 08:23 INDICATION: R19.5 - Other fecal abnormalities . Diarrhea. TECHNIQUE: Multiple grayscale and Doppler images of the abdomen right upper quadrant were obtained (b y a technologist who performed the scan) and subsequently reviewed. Comparison is made to prior exami nation from 05/18/2014. FINDINGS: The pancreatic head and body are normal in appearance. The pancreatic tail is not visualized. The l iver has normal echogenicity and contour. There are no focal liver lesions identified. There is no evidence of intrahepatic biliary duct dilation. Portal venous flow was seen in the hepatopedal, nor mal direction and has normal Doppler waveform. No right-sided hydronephrosis. Common bile duct measures 2-3 mm, which is normal. The gallbladder wall is normal in thickness, with expected amount of distention. No sonographic evidence of pericholecystic fluid. There is no cholel ithiases. Technologist performing exam reports patient did not demonstrate sonographic Caba's sign. Please note that this sign is less reliable in patients who have received pain medication. IMPRESSION: 1. Unremarkable abdominal ultrasound exam. Reviewed, dictated and finalized at location B. GE PIPE INSTALLER
== END 2021-05-25 07:43 | disposition home or self-care (01) ==
LOC: ANHIMG 07:45
PROVIDERS: PCP Internal Medicine; Visit Provider Internal Medicine
DX: R10.9 Unspecified abdominal pain (principal); R14.0 Abdominal distension (gaseous); R19.5 Other fecal abnormalities; R19.7 Diarrhea, unspecified; R10.2 Pelvic and perineal pain
CPT/HCPCS: 76705; 76856

== ENCOUNTER 2021-05-27 12:03 | Outpatient (CLI) | payer MEDICARE, SELFPAY ==
[2021-05-27 12:39] LABS: Alanine Aminotransferase 16 U/L (4-35); Albumin Level 4.1 g/dL (3.5-5.1); Alkaline Phosphatase 62 U/L (38-126); Aspartate Amino Transferase 24 U/L (14-36); Bilirubin,Total 0.5 mg/dL (0.2-1.3)
== END 2021-05-27 12:04 | disposition home or self-care (01) ==
LOC: ANHLAB 12:06
PROVIDERS: PCP Internal Medicine; Visit Provider Internal Medicine
DX: L29.9 Pruritus, unspecified (principal); R53.83 Other fatigue; R10.11 Right upper quadrant pain; Z79.899 Other long term (current) drug therapy
CPT/HCPCS: 36415; 80076

== ENCOUNTER 2021-08-03 10:31 | Outpatient (CLI) | payer MEDICARE, SELFPAY ==
[2021-08-03 11:28] LABS: Basophils Percent Auto 0.6 % (0.2-1.2); Eosinophils Absolute Auto 0.1 K/mm3 (0-0.3); Eosinophils Percent Auto 2.1 % (0-4.4); Hematocrit 39.8 % (37.0-47.0); Hemoglobin 12.1 g/dL (12.0-15.0); Immature Granulocyte Absolute 0.01 K/mm3 (0.00-0.031); Immature Granulocyte Percent A 0.2 % (0-0.5); Lymphocytes Absolute Auto 1.51 K/mm3 (0.9-3.2); Lymphocytes Percent Auto 32.2 % (18.3-44.2); Mean Corpuscular HGB Conc 30.4 g/dl (32-36); Mean Corpuscular Hemoglobin 30.7 pg (26-34); Mean Platelet Volume 9.8 fl (7.4-10.4); Monocytes Absolute Auto 0.5 K/mm3 (0.1-0.6); Monocytes Percent Auto 9.8 % (2.6-8.5); Neutrophils Absolute Auto 2.6 K/mm3 (1.3-6.7); Neutrophils Percent Auto 55.1 % (45.5-73.1); Platelet Count Result 199 k/mm3 (150-375); Red Blood Count 3.94 M/mm3 (4.2-5.4); Red Cell Distribution Width 13.2 % (11.5-14.5); White Blood Count 4.7 K/mm3 (4.5-10.0)
[2021-08-03 11:38] LABS: Alanine Aminotransferase 18 U/L (4-35); Albumin Level 4.5 g/dL (3.5-5.1); Alkaline Phosphatase 68 U/L (38-126); Anion Gap 6 mmol/L (8-16); Aspartate Amino Transferase 30 U/L (14-36); Bilirubin,Total 0.5 mg/dL (0.2-1.3); Blood Urea Nitrogen 19 mg/dL (7-17); Calcium 9.2 mg/dL (8.4-10.2); Carbon Dioxide 29 mmol/L (22-30); Chloride 105 mmol/L (98-107); Cholesterol 227 mg/dL (0-200); Estimated Glomerular Filt Rate 60; Glucose 140 mg/dL (65-110); HDL Direct 73 mg/dL; Hemoglobin A1C 6.5 % (<5.7); Potassium 5.2 mmol/L (3.4-5.0); Sodium 140 mmol/L (137-145); Triglycerides 57 mg/dL (<150)
[2021-08-03 11:49] LABS: LDL Cholesterol Direct 107 mg/dL
[2021-08-03 12:07] LABS: Thyroid Stimulating Hormone 0.593 uIU/mL (0.465-4.680)
== END 2021-08-03 10:32 | disposition home or self-care (01) ==
LOC: ANHLAB 10:34
PROVIDERS: PCP Internal Medicine; Visit Provider Internal Medicine
DX: E78.2 Mixed hyperlipidemia (principal); E11.9 Type 2 diabetes mellitus without complications; I10 Essential (primary) hypertension; E03.9 Hypothyroidism, unspecified
CPT/HCPCS: 36415; 80053; 80061; 83036; 84439; 84443; 85025

== ENCOUNTER 2021-12-27 09:36 | Outpatient (CLI) | payer MEDICARE, SELFPAY ==
[2021-12-27 10:29] LABS: Hemoglobin A1C 6.8 % (<5.7)
[2021-12-27 10:34] LABS: Alanine Aminotransferase 20 U/L (6-35); Albumin Level 4.1 g/dL (3.5-5.1); Alkaline Phosphatase 66 U/L (38-126); Anion Gap 7 mmol/L (8-16); Aspartate Amino Transferase 25 U/L (14-36); Bilirubin,Total 0.5 mg/dL (0.2-1.3); Blood Urea Nitrogen 13 mg/dL (7-17); Calcium 9.1 mg/dL (8.4-10.2); Carbon Dioxide 27 mmol/L (22-30); Chloride 105 mmol/L (98-107); Cholesterol 202 mg/dL (0-200); Estimated Glomerular Filt Rate > 60; Glucose 153 mg/dL (65-110); HDL Direct 70 mg/dL; Potassium 4.4 mmol/L (3.4-5.0); Sodium 139 mmol/L (137-145); Triglycerides 84 mg/dL (<150)
[2021-12-27 10:46] LABS: LDL Cholesterol Direct 89 mg/dL
[2021-12-27 10:50] LABS: Creatinine Urine 69.3 mg/dL
[2021-12-27 10:55] LABS: MALB Creatinine Ratio 32.9 mg/g (0-30); Microalbumin Urine Random 22.8 mg/L (0-16.7)
[2021-12-27 11:06] LABS: Free T4 Free Thyroxine 1.12 ng/mL (0.78-2.19)
== END 2021-12-27 09:37 | disposition home or self-care (01) ==
LOC: ANHLAB 09:38
PROVIDERS: PCP Internal Medicine; Visit Provider Internal Medicine
DX: I10 Essential (primary) hypertension (principal); E03.9 Hypothyroidism, unspecified; E11.9 Type 2 diabetes mellitus without complications; Z79.899 Other long term (current) drug therapy; E78.2 Mixed hyperlipidemia
CPT/HCPCS: 36415; 80053; 80061; 82043; 83036; 84439; 84443

== ENCOUNTER 2022-01-04 13:04 | Outpatient (CLI) | payer MEDICARE, SELFPAY ==
--- NOTE | ~2022-01-04 | XR_ITS ---
EXAMINATION: XR chest 2V 01/04/2022 13:33 INDICATION: Chest wall and back pain PROCEDURE: 2 view chest COMPARISON: Comparison to multiple prior studies sequentially, with oldest reviewed study dated 08/29. FINDINGS: The lungs are clear. The cardiomediastinal silhouette is within normal limits. There are no pleural effusions. There is no pneumothorax suspected. IMPRESSION: 1: NO ACUTE CARDIOPULMONARY DISEASE. Reviewed, dictated and finalized at location A.
== END 2022-01-04 13:05 | disposition home or self-care (01) ==
PROVIDERS: PCP Internal Medicine; Visit Provider Internal Medicine
DX: R07.89 Other chest pain (principal); M54.6 Pain in thoracic spine
CPT/HCPCS: 71046

== ENCOUNTER 2022-02-27 10:32 | Outpatient (CLI) | payer MEDICARE, SELFPAY ==
--- NOTE | ~2022-02-27 | MM_ITS ---
EXAMINATION: MM screening jacques BI w tommy HISTORY: Screening TECHNIQUE: Craniocaudal and mediolateral oblique 3-D tomosynthesis images were obtained and synthetic 2-D images were generated. CAD analysis was submitted and interpreted. COMPARISON: Comparison to multiple prior studies sequentially, with oldest reviewed study dated 11/07. BREAST PARENCHYMAL COMPOSITION: There are scattered areas of fibroglandular density. FINDINGS: There is no evidence of suspicious mass, calcification, or architectural distortion to sugg est malignancy in either breast. There has been no suspicious interval change. IMPRESSION: 1. No mammographic evidence of malignancy. 2. Recommend routine screening mammography in one year. BI-RADS Category 1: Negative Reviewed, dictated and finalized at location A. LOADER
== END 2022-02-27 10:33 | disposition home or self-care (01) ==
LOC: ANHIMG 10:35
PROVIDERS: PCP Internal Medicine; Visit Provider Internal Medicine
DX: Z12.31 Encounter for screening mammogram for malignant neoplasm of breast (principal)
CPT/HCPCS: 77063; 77067

== ENCOUNTER 2022-03-13 12:45 | Outpatient (CLI) | payer MEDICARE, SELFPAY ==
--- NOTE | ~2022-03-13 | DEXA_ITS ---
Bone Density Report Name: VENKATESH SHIELDS Age: 82 Sex: Female Ethnicity: White Date of : 1940 Indication: postmenopausal; screening for osteoporosis; height loss; Referring Provider: POLO PHAM Study: Bone densitometry was performed. Exam Date: March 13, 2022 Accession number: [id number] Bone Density: Region BMD T-score Z-score Classification AP Spine(L1, L2) 0.865 -1.0 1.5 Normal Femoral Neck (Left) 0.554 -2.7 -0.3 Osteoporosis Total Hip (Left) 0.696 -2.0 0.1 Osteopenia Femoral Neck (Right) 0.554 -2.7 -0.3 Osteoporosis Total Hip (Right) 0.745 -1.6 0.4 Osteopenia Total Hip Mean 0.720 -1.8 0.3 Osteopenia World Health Organization criteria for BMD impression classify patients as: Normal (T-score at or above -1.0), Osteopenia (T-score between -1.0 and -2.5), or Osteoporosis (T-score at or below -2.5). 10-year Fracture Risk: FRAX not reported because: Some T-score for Spine Total or Hip Total or Femoral Neck at or below -2.5 Clinical Information Provided by Patient: Has used the following medications: Calcium Patient maximum height was 65.5 Menopause Age: 57 No regular weight bearing exercise Drinks caffeinated beverages Onset of menses at age 15 Number of children 2 Impression: The patient has osteoporosis, based on the Left Femoral Neck T-score. Discussion: INCREASED RISK OF FRACTURE. BONE DENSITY IS UNDESIRABLY LOW AT ONE OR MORE SKELETAL SITES, CONSISTENT WITH POSTMENOPAUSAL OSTEOPOROSIS. This patient's lowest T-score meets the World Health Organization's (WHO) criteria for osteoporosis at one or more sites (T-score -2.5 or below). In untreated patients, the risk of osteoporotic fracture increases approximately two-fold for each 1.0 SD decrease in T-score. Low bone density is not the only risk factor for fracture; also consider factors such as patient's age, frailty or poor health, risk of falling, risk of injury, previous osteoporotic fracture, family history of osteoporosis, cigarette smoking, low body weight, etc. Not everyone with low bone mineral density has osteoporosis; osteomalacia and other metabolic bone disorders should also be considered. Patients who have osteoporosis should be evaluated for specific diseases and conditions (secondary causes) that may cause or contribute to bone loss. The [place] Association [employer] Clinical Endocrinologists (AACE) and National Osteoporosis Foundation (NOF) recommend pharmacologic intervention for all postmenopausal women whose T-score is in this range. The patient should follow a healthful lifestyle (good nutrition with adequate calcium and vitamin D, and appropriate weight-bearing exercise). Follow-Up: Consider a repeat BMD and Vertebral Fracture Assessment (VFA) exam in 2 years or sooner if medically necessary, to reasses
== END 2022-03-13 12:46 | disposition home or self-care (01) ==
PROVIDERS: PCP Internal Medicine; Visit Provider Internal Medicine
DX: M81.0 Age-related osteoporosis without current pathological fracture (principal); N95.1 Menopausal and female climacteric states; M85.852 Other specified disorders of bone density and structure, left thigh; M85.851 Other specified disorders of bone density and structure, right thigh
CPT/HCPCS: 77080

== ENCOUNTER 2022-03-21 13:42 | Outpatient (CLI) | payer MEDICARE, SELFPAY ==
[2022-03-21 14:33] LABS: Vitamin D 25 Hydroxy 49.1 ng/mL
== END 2022-03-21 13:43 | disposition home or self-care (01) ==
PROVIDERS: PCP Internal Medicine; Visit Provider Internal Medicine
DX: M81.0 Age-related osteoporosis without current pathological fracture (principal); M85.80 Other specified disorders of bone density and structure, unspecified site
CPT/HCPCS: 36415; 82306

== ENCOUNTER 2022-08-18 09:58 | Outpatient (CLI) | payer MEDICARE, SELFPAY ==
[2022-08-18 10:27] LABS: Basophils Percent Auto 0.9 % (0.2-1.2); Eosinophils Absolute Auto 0.2 K/mm3 (0-0.3); Eosinophils Percent Auto 4.4 % (0-4.4); Hematocrit 36.3 % (37.0-47.0); Hemoglobin 11.4 g/dL (12.0-15.0); Lymphocytes Absolute Auto 1.47 K/mm3 (0.9-3.2); Mean Corpuscular HGB Conc 31.4 g/dl (32-36); Mean Corpuscular Hemoglobin 31.5 pg (26-34); Mean Corpuscular Volume 100.3 fl (80-100); Mean Platelet Volume 9.6 fl (7.4-10.4); Monocytes Absolute Auto 0.5 K/mm3 (0.1-0.6); Monocytes Percent Auto 10.2 % (2.6-8.5); Neutrophils Absolute Auto 2.4 K/mm3 (1.3-6.7); Neutrophils Percent Auto 52.5 % (45.5-73.1); Platelet Count Result 181 k/mm3 (150-375); Red Blood Count 3.62 M/mm3 (4.2-5.4); Red Cell Distribution Width 13.2 % (11.5-14.5); White Blood Count 4.6 K/mm3 (4.5-10.0)
[2022-08-18 10:38] LABS: Alanine Aminotransferase 16 U/L (6-35); Albumin Level 4.2 g/dL (3.5-5.1); Alkaline Phosphatase 49 U/L (38-126); Anion Gap 5 mmol/L (8-16); Aspartate Amino Transferase 23 U/L (14-36); Bilirubin,Total 0.7 mg/dL (0.2-1.3); Blood Urea Nitrogen 13 mg/dL (7-17); Carbon Dioxide 31 mmol/L (22-30); Chloride 103 mmol/L (98-107); Cholesterol 209 mg/dL (0-200); Estimated Glomerular Filt Rate > 60; Glucose 156 mg/dL (65-110); HDL Direct 71 mg/dL; Potassium 4.7 mmol/L (3.4-5.0); Sodium 139 mmol/L (137-145); Triglycerides 61 mg/dL (<150)
[2022-08-18 10:49] LABS: LDL Cholesterol Direct 102 mg/dL
[2022-08-18 11:09] LABS: Free T4 Free Thyroxine 1.63 ng/mL (0.78-2.19); Thyroid Stimulating Hormone 0.306 uIU/mL (0.465-4.680); Vitamin D 25 Hydroxy 44.5 ng/mL
[2022-08-18 14:35] LABS: Hemoglobin A1C 6.7 % (<5.7)
== END 2022-08-18 09:59 | disposition home or self-care (01) ==
LOC: ANHLAB 09:59
PROVIDERS: PCP Internal Medicine; Visit Provider Internal Medicine
DX: E78.2 Mixed hyperlipidemia (principal); I10 Essential (primary) hypertension; E03.9 Hypothyroidism, unspecified; R60.0 Localized edema; E55.9 Vitamin D deficiency, unspecified; E11.9 Type 2 diabetes mellitus without complications
CPT/HCPCS: 36415; 80053; 80061; 82306; 83036; 84439; 84443; 85025

== ENCOUNTER 2022-08-21 12:31 | Outpatient (CLI) | payer MEDICARE, SELFPAY ==
--- NOTE | ~2022-08-21 | XR_ITS ---
EXAMINATION: XR chest 2V 08/21/2022 12:47 INDICATION: Chest pain PROCEDURE: 2 view chest COMPARISON: Comparison to multiple prior studies sequentially, with oldest reviewed study dated 04/2004. FINDINGS: The lungs are clear. The lungs are hyperinflated which is consistent with, but not diagnost ic of chronic obstructive pulmonary disease. The cardiomediastinal silhouette is within normal limit s. There are no pleural effusions. There is no pneumothorax suspected. IMPRESSION: 1: NO ACUTE CARDIOPULMONARY DISEASE. Reviewed, dictated and finalized at location B.
== END 2022-08-21 12:32 | disposition home or self-care (01) ==
LOC: ANHIMG 12:33
PROVIDERS: PCP Internal Medicine; Visit Provider Internal Medicine
DX: R07.89 Other chest pain (principal)
CPT/HCPCS: 71046

== ENCOUNTER 2022-09-20 08:10 | Outpatient (CLI) | payer MEDICARE, SELFPAY ==
--- NOTE | ~2022-09-20 | NM_ITS ---
EXAMINATION: NM vlad stress w perfusion DATE: 09/20/2022 10:09 INDICATION: Chest pain, unspecified. TECHNIQUE: Rest images were obtained following intravenous administration of 10.5 mCi Tc99m tetrofosm in (Myoview). The patient was infused intravenously with Lexiscan (regadenoson). Then, 34.6 mCi Tc99m tetrofosmin (Myoview) was administered intravenously, and stress images were obtained. Data was noé nstructed into short axis and horizontal and vertical long axis SPECT images. Gated SPECT images were also obtained. COMPARISON: Myocardial perfusion imaging 12/16/2019 FINDINGS: There is no definite reversible or fixed perfusion abnormality to suggest ischemia or infar ction. There is no segmental wall motion abnormality. Left ventricular ejection fraction measures > 70%. IMPRESSION: 1. No definite ischemia or infarct. 2. Normal left ventricular ejection fraction measuring >70%. Reviewed, dictated and finalized at location A.
--- NOTE | 2022-09-20 08:24 | EST_ITS ---
Patient Info Name: Carolina Domínguez Age: 82 years : 1940 Gender: Female Ht: 65 in Wt: 140 lbs BSA: 1.71 m2 HR: 64 bpm BP: 153 / 64 mmHg Heart Rhythm: Sinus Rhythm Exam Date: 09/20/2022 9:07 AM Exam Location: [facility] Stress Patient Status: Outpatient Admit Date: 09/20/2022 Staff Ordering Physician: Min Logan MD Attending Provider: Min Logan MD Exercise Technologist: Kristal Cheema CT Exercise Physician: Merrick Winston DO Exam Type: CA stress vlad w NM Study Info Indications R07.89 - Other chest pain A regadenoson stress test was performed. Summary 1. 1. Negative Lexiscan stress test for ischemic ST changes by ECG criteria. 2. 2. Baseline hypertension. 3. 3. Nuclear scan to follow and will be reported separately. Please correlate with it. 4. 4. Patient informed of the above results. Protocol: Lexiscan Stress ECG Details Stage: REST Duration (min): 1 min : 29 sec HR (bpm): 64 SBP (mmHg): 153 DBP (mmHg): 64 Stage: REST Duration (min): 9 min : 12 sec HR (bpm): 68 SBP (mmHg): 153 DBP (mmHg): 64 Stage: STAGE 1 Duration (min): 0 min : 59 sec HR (bpm): 93 SBP (mmHg): 148 DBP (mmHg): 75 Stage: RECOVERY Duration (min): 1 min : 0 sec HR (bpm): 88 SBP (mmHg): 148 DBP (mmHg): 75 Stage: RECOVERY Duration (min): 2 min : 0 sec HR (bpm): 83 SBP (mmHg): 148 DBP (mmHg): 75 Stage: RECOVERY Duration (min): 3 min : 0 sec HR (bpm): 85 SBP (mmHg): 141 DBP (mmHg): 69 Stage: RECOVERY Duration (min): 3 min : 14 sec HR (bpm): 81 SBP (mmHg): 141 DBP (mmHg): 69 Rest HR: 68 bpm Peak HR: 96 bpm Rest Sys BP: 153 mmHg Peak Sys BP: 148 mmHg Max Pred HR: 140 bpm % Max Pred HR: 69 % Target HR: 119 bpm Max RPP: 14,208 bpm*mmHg Termination Reason: Completed protocol Cardiac Symptoms: None Total Time: 1 min : 0 sec Rest Elmore BP: 64 mmHg Peak Elmore BP: 75 mmHg Total Dose: 0.4 mg Resting ECG Sinus rhythm. Stress ECG No ST changes. Arrhythmias None. Report Signatures
== END 2022-09-20 08:11 | disposition home or self-care (01) ==
PROVIDERS: PCP Internal Medicine; Visit Provider Internal Medicine
DX: R07.9 Chest pain, unspecified (principal)
CPT/HCPCS: 78452; 93017; A9502; J2785

== ENCOUNTER 2022-09-26 09:51 | Outpatient (CLI) | payer MEDICARE, SELFPAY ==
--- NOTE | ~2022-09-26 | XR_ITS ---
EXAMINATION: XR UGI w small bowel DATE: 09/26/2022 11:32 INDICATION: Abdominal distention (gaseous ). TECHNIQUE: The patient drank thick barium, gas-producing crystals, and thin barium. Fluoroscopy of th e esophagus, stomach, and small bowel was performed. Fluoroscopy exposure time was 0.9 minutes. Radio graphs of the abdomen were obtained. The total number of images was 259. COMPARISON: CT 05/24/2020 FINDINGS: UPPER GASTROINTESTINAL SERIES: There is no mass or stricture of the esophagus. There is decreased primary and secondary esophageal p eristalsis. Abnormal tertiary waves were noted. There is no hiatal hernia. There was no gastroesophag eal reflux with provocative maneuvers. The stomach shows a normal folding pattern. SMALL BOWEL SERIES: The small bowel shows a normal folding pattern. Specifically, the terminal ileum is normal. Transit t jake to the colon was 45 minutes. There are changes of posterior fusion procedure in lumbar spine. IMPRESSION: 1. Moderate esophageal dysmotility. 2. Normal small bowel series. Reviewed, dictated and finalized at location A.
== END 2022-09-26 09:52 | disposition home or self-care (01) ==
PROVIDERS: PCP Internal Medicine; Visit Provider Internal Medicine
DX: R14.0 Abdominal distension (gaseous) (principal); K30 Functional dyspepsia
CPT/HCPCS: 74240; 74248

== ENCOUNTER 2023-02-14 09:32 | Outpatient (CLI) | payer MEDICARE, SELFPAY ==
[2023-02-14 10:15] LABS: Basophils Percent Auto 0.7 % (0.2-1.2); Eosinophils Absolute Auto 0.1 K/mm3 (0-0.3); Eosinophils Percent Auto 3.1 % (0-4.4); Hematocrit 35.8 % (37.0-47.0); Hemoglobin 11.2 g/dL (12.0-15.0); Immature Granulocyte Absolute 0.01 K/mm3 (0.00-0.031); Immature Granulocyte Percent A 0.2 % (0-0.5); Lymphocytes Absolute Auto 1.56 K/mm3 (0.9-3.2); Lymphocytes Percent Auto 34.2 % (18.3-44.2); Mean Corpuscular HGB Conc 31.3 g/dl (32-36); Mean Corpuscular Hemoglobin 31.8 pg (26-34); Mean Corpuscular Volume 101.7 fl (80-100); Mean Platelet Volume 9.1 fl (7.4-10.4); Monocytes Absolute Auto 0.4 K/mm3 (0.1-0.6); Monocytes Percent Auto 9.6 % (2.6-8.5); Neutrophils Absolute Auto 2.4 K/mm3 (1.3-6.7); Neutrophils Percent Auto 52.2 % (45.5-73.1); Platelet Count Result 181 k/mm3 (150-375); Red Blood Count 3.52 M/mm3 (4.2-5.4); Red Cell Distribution Width 12.4 % (11.5-14.5); White Blood Count 4.6 K/mm3 (4.5-10.0)
[2023-02-14 10:37] LABS: Alanine Aminotransferase 19 U/L (6-35); Alkaline Phosphatase 41 U/L (38-126); Anion Gap 2 mmol/L (8-16); Aspartate Amino Transferase 27 U/L (14-36); Bilirubin,Total 0.6 mg/dL (0.2-1.3); Blood Urea Nitrogen 14 mg/dL (7-17); Calcium 8.9 mg/dL (8.4-10.2); Carbon Dioxide 33 mmol/L (22-30); Chloride 103 mmol/L (98-107); Cholesterol 201 mg/dL (0-200); Estimated Glomerular Filt Rate > 60; Glucose 156 mg/dL (65-110); HDL Direct 65 mg/dL; Potassium 4.5 mmol/L (3.4-5.0); Sodium 138 mmol/L (137-145); Triglycerides 66 mg/dL (<150)
[2023-02-14 10:40] LABS: Hemoglobin A1C 6.7 % (<5.7)
[2023-02-14 10:48] LABS: LDL Cholesterol Direct 99 mg/dL
[2023-02-14 11:32] LABS: Free T4 Free Thyroxine 1.38 ng/mL (0.78-2.19); Vitamin D 25 Hydroxy 47.3 ng/mL
[2023-02-14 12:24] LABS: Thyroid Stimulating Hormone 0.546 uIU/mL (0.465-4.680)
[2023-02-14 13:59] LABS: Iron 71 ug/dL (37-170)
[2023-02-14 14:08] LABS: Percent Iron Saturation 17 % (20-50)
== END 2023-02-14 09:33 | disposition home or self-care (01) ==
PROVIDERS: PCP Internal Medicine; Visit Provider Internal Medicine
DX: E11.9 Type 2 diabetes mellitus without complications (principal); E03.9 Hypothyroidism, unspecified; Z79.899 Other long term (current) drug therapy; E78.2 Mixed hyperlipidemia; D64.9 Anemia, unspecified
CPT/HCPCS: 36415; 80053; 80061; 82306; 82728; 83036; 83540; 83550; 84439; 84443; 85025

== ENCOUNTER 2023-02-16 13:41 | Outpatient (CLI) | payer MEDICARE, SELFPAY ==
[2023-02-16 15:56] LABS: Folic Acid > 20.0 ng/mL (2.76->20)
== END 2023-02-16 13:42 | disposition home or self-care (01) ==
LOC: ANHLAB 13:42
PROVIDERS: PCP Internal Medicine; Visit Provider Internal Medicine
DX: R53.83 Other fatigue (principal)
CPT/HCPCS: 36415; 82607; 82746

== ENCOUNTER 2023-03-02 07:40 | Outpatient (CLI) | payer MEDICARE, SELFPAY ==
--- NOTE | ~2023-03-02 | XR_ITS ---
EXAMINATION: XR UGIAC w small bowel DATE: 03/02/2023 08:54 INDICATION: Upper abdominal pain. TECHNIQUE: The patient drank thick barium, gas-producing crystals, and thin barium. Fluoroscopy of th e esophagus, stomach, and small bowel was performed. Fluoroscopy exposure time was 0.8 minutes. Radio graphs of the abdomen were obtained. The total number of images was 227. COMPARISON: Fluoroscopy 09/26/2022 FINDINGS: UPPER GASTROINTESTINAL SERIES: There is no mass or stricture of the esophagus. There is decreased primary and secondary esophageal p eristalsis. No abnormal tertiary waves are seen. There is no hiatal hernia. There was no gastroesopha geal reflux with provocative maneuvers. The stomach shows a normal folding pattern. SMALL BOWEL SERIES: The small bowel shows a normal folding pattern. Specifically, the terminal ileum is normal. Transit t jake to the colon was 45 minutes. There are changes of posterior fusion procedure in lumbar spine. IMPRESSION: 1. Moderate esophageal dysmotility. 2. Normal small bowel series. Reviewed, dictated and finalized at location A. MANAGER
== END 2023-03-02 07:41 | disposition home or self-care (01) ==
PROVIDERS: PCP Internal Medicine; Visit Provider Internal Medicine
DX: R10.10 Upper abdominal pain, unspecified (principal)
CPT/HCPCS: 74246; 74248

== ENCOUNTER 2023-05-16 13:56 | Outpatient (CLI) | payer MEDICARE, SELFPAY ==
[2023-05-16 14:35] LABS: Calcium 9.1 mg/dL (8.4-10.2)
== END 2023-05-16 13:57 | disposition home or self-care (01) ==
LOC: ANHLAB 13:57
PROVIDERS: PCP Internal Medicine; Visit Provider Internal Medicine
DX: M81.0 Age-related osteoporosis without current pathological fracture (principal); M85.80 Other specified disorders of bone density and structure, unspecified site; Z79.899 Other long term (current) drug therapy
CPT/HCPCS: 36415; 82310

== ENCOUNTER 2023-06-28 12:38 | Outpatient (CLI) | payer MEDICARE, SELFPAY ==
--- NOTE | ~2023-06-28 | US_ITS ---
EXAMINATION: US renal BI DATE: 06/28/2023 13:42 INDICATION: Abdominal pain TECHNIQUE: Multiple ultrasound grayscale images of the kidneys were obtained. COMPARISON: None. FINDINGS: The right kidney measures 10.0 x 4.2 x 5.7 cm. The left kidney measures 9.0 x 5.7 x 4.4 cm. The kidne ys demonstrate normal echogenicity. There is no hydronephrosis in either kidney. No stones identifie d. The bladder is normal with bilateral ureteral jets visualized with color Doppler. IMPRESSION: 1. Normal kidneys without hydronephrosis. Reviewed, dictated and finalized at location L.
== END 2023-06-28 12:39 | disposition home or self-care (01) ==
PROVIDERS: PCP Internal Medicine; Visit Provider Internal Medicine
DX: R10.9 Unspecified abdominal pain (principal)
CPT/HCPCS: 76775

== ENCOUNTER 2023-08-01 06:28 | Day surgery (SDC) | payer MEDICARE, SELFPAY ==
[2023-06-25 14:42] VITALS: BMI 23.8
[2023-08-01 07:06] VITALS: BMI 24.0
[2023-08-01 07:12] VITALS: BP 148/61; PULSE 75; RESP 18; TEMP 37.1; O2SAT 97
--- NOTE | 2023-08-01 07:18 | PM.HPGS ---
History of Present Illness History of Present Illness Consent: Risks, benefits, and alternatives have been discussed and questions answered. Patient agrees to proceed with procedure. Chief complaint: History of Polyps Narrative: Carolina Domínguez is a 83 year old female presents today for screening colonoscopy. Patient has a history of multiple colon polyps in 2020. She had a sessile polyp also removed in 2021. Patient reports that she has frequent bouts of incontinence. She attributes this to her diet. She has no bleeding. Weight has remained stable. Family history noncontributory. Patient returns today for follow-up colonoscopy. Review of Systems Review of Systems: Review of Systems is noncontributory. [facility] Past Medical History Medical History (Updated 08/01/23 @ 07:20 by Fish Davis MD) Abdominal bloating Abnormal finding of blood chemistry, unspecified Abnormal vaginal bleeding in postmenopausal patient Anxiety Arthritis Benign essential hypertension Bilateral flank pain Bilateral hip pain BMI 22.0-22.9, adult BMI 25.0-25.9,adult BMI 27.0-27.9,adult Body mass index [BMI] 25.0-25.9, adult (10/31/16) Chest discomfort Chest wall pain Chronic low back pain Chronic SI joint pain Colon cancer screening Dark stools Degenerative joint disease (DJD) of hip Depression Diarrhea [place] (dyspnea on exertion) Dry eye Elevated homocysteine Fatigue Follow up GERD (gastroesophageal reflux disease) Hair loss Hearing loss Hx of colonic polyps Hypersomnolence Hypertension Hypothyroidism (acquired) Itchy skin Lumbar spondylosis Macular degeneration MDD (major depressive disorder) Memory impairment Microscopic hematuria Missed x3 Mixed hyperlipidemia Muscular aches Osteoarthritis of thoracic spine with radiculopathy Osteoporosis Pedal edema Personal history of covid-19 Postmenopausal bleeding Restrictive lung disease Seasonal allergies Skin lesion of cheek Skin mole Statin intolerance Thin nails Tremor Unintentional weight loss Vaginal delivery x1 Vertigo Vision abnormalities Surgical History Surgical History H/O dilation and curettage History of back surgery L 3-4-5 fusion History of bilateral tubal ligation History of section x1 History of eye surgery cataract removal both eyes Family History Family History Mother Hypertension Family history of malignant neoplasm Father Hypertension Family history of Alzheimer's disease Family history of chronic obstructive pulmonary disease Family history of dementia Sibling Family history of diabetes mellitus in first degree relative Social History Social History Smoking status: Never smoker Second hand tobacco smoke exposure: No Alcohol intake: never Alcohol use details: wine occasionally Substance use: never Substance use type: does not use Lack of Transportation: No Lack of Food: Never True Current Housing: I Have Housing Concerned About Future Housing: No Difficulty Paying Gas/Electric Bills: No Difficulty Paying for Meds: No Currently Unemployed: No Education: Trade/Vocational Certificate Difficulty w/ Childcare or Family Care: No Living arrangements: with family Gender identity (if verbalized by the patient): Female Spiritual care concerns: No Meds Home Medications and Allergies Home Medications Medication Instructions Recorded Confirmed Type aspirin 81 mg tablet,delayed 81 mg PO DAILY 05/01/19 08/01/23 History release (Adult Low Dose Aspirin) lmfkxvrd-jdnv-nsby 8 mg-folic 400 1 tablet PO DAILY 05/01/19 08/01/23 History mcg-K 50 mcg-lutein 300 mcg tablet (Centrum Silver Women) omega-3 fatty acids 1,000 mg 2,000 mg PO BID 05/01/19 08/01/23 History capsule (Fish Oil Concentrate) blo
[2023-08-01 07:21] LABS: Glucose Point of Care 119 mg/dl (65-105)
--- NOTE | 2023-08-01 07:46 | WPDANESEPPF ---
Anes - Initial Pre Proc Eval Procedure: Operation Date: 08/01/23 08:00 Proposed Procedures p Diagnostic Colonoscopy - Fish Davis MD Date/Time: 08/01/23 07:46 Surgeon: Fish Davis MD Pre Op Diagnosis: History of Polyps Patient Data Age: 83 Gender: F Height: 1.63 m Weight: 63.5 kg Last Vital Signs Temp 37.1 C 08/01/23 07:12 Pulse 75 08/01/23 07:12 Resp 18 08/01/23 07:12 BP 148/61 H 08/01/23 07:12 Pulse Ox 97 08/01/23 07:12 O2 Del Method Room Air 08/01/23 07:12 Allergies Allergy/AdvReac Type Severity Reaction Status Date / Time tizanidine AdvReac Intermediate Confusion Verified 07/16/23 13:04 Home Medications Medication Instructions Recorded Confirmed Type aspirin 81 mg tablet,delayed 81 mg PO DAILY 05/01/19 08/01/23 History release (Adult Low Dose Aspirin) [id number] 8 mg-folic 400 1 tablet PO DAILY 05/01/19 08/01/23 History mcg-K 50 mcg-lutein 300 mcg tablet (Centrum Silver Women) omega-3 fatty acids 1,000 mg 2,000 mg PO BID 05/01/19 08/01/23 History capsule (Fish Oil Concentrate) blood-glucose meter (TrusightTouch #1 ea 11/21/19 07/16/23 Rx Ultra2 Meter kit) coenzyme [id number] E 100 mg-100 1 cap PO DAILY 10/19/20 08/01/23 History unit capsule Calcium Chews 650 mg BYMOUTH DAILY 08/08/21 08/01/23 History loperamide 2 mg tablet 2 mg PO DAILY PRN Diarrhea 03/24/22 08/01/23 History nitroglycerin 0.4 mg sublingual 0.4 mg sublingual Q5M PRN chest 08/21/22 08/01/23 Rx tablet pain #25 tabs famotidine 40 mg tablet See Rx Instructions .Route 11/22/22 08/01/23 Rx .COMPLEX #200 tabs trazodone 50 mg tablet See Rx Instructions .Route 11/30/22 08/01/23 Rx .COMPLEX #180 tabs dapagliflozin propanediol 10 mg 10 mg PO DAILY #90 tabs 01/29/23 08/01/23 Rx tablet (Farxiga) ezetimibe 10 mg tablet See Rx Instructions .Route 01/29/23 08/01/23 Rx .COMPLEX #100 tabs denosumab 60 mg/mL subcutaneous 60 mg subcut [id number] 02/15/23 08/01/23 History syringe (Prolia) ferrous sulfate 325 mg (65 mg 325 mg PO BID #180 tabs 02/15/23 08/01/23 Rx iron) tablet,delayed release sitagliptin phosphate 100 mg 100 mg PO DAILY #90 tabs 02/15/23 08/01/23 Rx tablet (Januvia) blood sugar diagnostic (TrusightTouch #100 strips 04/23/23 07/16/23 Rx Ultra Test strips) lancets 33 gauge (OneTouch Delica #100 ea 04/23/23 07/16/23 Rx Plus Lancet) gabapentin 600 mg tablet 600 mg PO TID #270 tabs 06/15/23 08/01/23 Rx escitalopram oxalate 10 mg tablet See Rx Instructions .Route 07/10/23 08/01/23 Rx .COMPLEX #100 tabs losartan 100 mg tablet See Rx Instructions .Route 07/16/23 08/01/23 Rx .COMPLEX #100 tabs levothyroxine 88 mcg tablet See Rx Instructions .Route 07/17/23 Rx .COMPLEX #100 tabs dicyclomine 10 mg capsule See Rx Instructions .Route 07/19/23 08/01/23 Rx .COMPLEX #90 caps Laboratory Tests 08/01/23 07:17 POC Capillary Glucose 119 H mg/dl (65-105) Patient hx anesthesia problems: none Family hx anesthesia problems: none Results Review: All pre-operative results and documents have been reviewed as part of the pre-operative evaluation. [facility] Past Medical History Medical History Abdominal bloating Abnormal finding of blood chemistry, unspecified Abnormal vaginal bleeding in postmenopausal patient Anxiety Arthritis Benign essential hypertension Bilateral flank pain Bilateral hip pain BMI 22.0-22.9, adult BMI 25.0-25.9,adult BMI 27.0-27.9,adult Body mass index [BMI] 25.0-25.9, adult (10/31/16) Chest discomfort Chest wall pain Chronic low back pain Chronic SI joint pain Colon cancer screening Dark stools Degenerative joint disease (DJD) of hip Depression Diarrhea [place] (dyspnea on exertion) Dry eye Elevated homocysteine Fatigue Follow up GERD (gastroesophageal reflux disease) Hair loss Hearing loss Hx of colonic polyps Hypersomnolence Hypertension Hypothyroid
[2023-08-01] MEDS: LACTATED RINGERS 1,000 ML 150 ML IV CONT (08:00)
[2023-08-01 08:18] VITALS: BP 110/53; PULSE 74; RESP 14; O2SAT 99
[2023-08-01 08:28] VITALS: BP 104/80; PULSE 77; RESP 14; O2SAT 98
--- NOTE | 2023-08-01 08:34 | WPDANESPN ---
Anes - Prog Note Post-Op Date/Time: 08/01/23 08:34 Cardiovascular status: normal Respiratory status: normal Airway patency: baseline Mental status: baseline Post-Op hydration status: normal Vital Signs: Last Vital Signs Temp 37.1 C 08/01/23 07:12 Pulse 77 08/01/23 08:28 Resp 14 08/01/23 08:28 BP 104/80 08/01/23 08:28 Pulse Ox 98 08/01/23 08:28 O2 Del Method Room Air 08/01/23 08:28 Pain Score (VAS): 0 I/O: Intake & Output 07/31/23 08/01/23 08/01/23 23:59 07:59 15:59 Intake Total 400 Balance 400 08/01/23 07:17 POC Capillary Glucose 119 H Patient Feedback: Patient satisfied with anesthetic care.
[2023-08-01 08:38] VITALS: BP 123/65; PULSE 75; RESP 14; O2SAT 99
== END 2023-08-01 08:50 | disposition home or self-care (01) ==
PROVIDERS: PCP Internal Medicine; Visit Provider Internal Medicine Gastroenterology
PROC: 0DJD8ZZ Inspection of Lower Intestinal Tract, Via Natural or Artificial Opening Endoscopic (ICD-10-PCS; CPT 45378; principal; 2023-08-01 08:00)
DX: Z86.010 Personal history of colon polyps (principal); K64.8 Other hemorrhoids
CPT/HCPCS: 45378

== ENCOUNTER 2023-09-13 09:49 | Outpatient (CLI) | payer MEDICARE, SELFPAY ==
[2023-09-13 10:48] LABS: Anion Gap 7 mmol/L (4-12); Blood Urea Nitrogen 16 mg/dL (7-17); Calcium 8.8 mg/dL (8.4-10.2); Carbon Dioxide 27 mmol/L (22-30); Chloride 105 mmol/L (98-107); Cholesterol 250 mg/dL (0-200); Estimated Glomerular Filt Rate > 60; Glucose 186 mg/dL (65-110); HDL Direct 78 mg/dL; Potassium 4.7 mmol/L (3.4-5.0); Sodium 139 mmol/L (137-145); Triglycerides 94 mg/dL (<150)
[2023-09-13 10:51] LABS: Eosinophils Absolute Auto 0.2 K/mm3 (0-0.3); Eosinophils Percent Auto 4.4 % (0-4.4); Hematocrit 42.5 % (37.0-47.0); Hemoglobin 13.2 g/dL (12.0-15.0); Immature Granulocyte Absolute 0.02 K/mm3 (0.00-0.031); Immature Granulocyte Percent A 0.5 % (0-0.5); Lymphocytes Absolute Auto 0.93 K/mm3 (0.9-3.2); Lymphocytes Percent Auto 22.8 % (18.3-44.2); Mean Corpuscular HGB Conc 31.1 g/dl (32-36); Mean Corpuscular Hemoglobin 32.4 pg (26-34); Mean Corpuscular Volume 104.2 fl (80-100); Mean Platelet Volume 9.9 fl (7.4-10.4); Monocytes Absolute Auto 0.4 K/mm3 (0.1-0.6); Monocytes Percent Auto 9.3 % (2.6-8.5); Neutrophils Absolute Auto 2.5 K/mm3 (1.3-6.7); Platelet Count Result 142 k/mm3 (150-375); Red Blood Count 4.08 M/mm3 (4.2-5.4); Red Cell Distribution Width 12.5 % (11.5-14.5); White Blood Count 4.1 K/mm3 (4.5-10.0)
[2023-09-13 10:58] LABS: LDL Cholesterol Direct 113 mg/dL
[2023-09-13 11:18] LABS: Iron 113 ug/dL (37-170)
[2023-09-13 11:27] LABS: Percent Iron Saturation 33 % (20-50)
[2023-09-13 12:21] LABS: Creatinine Urine 103.9 mg/dL
[2023-09-13 12:31] LABS: MALB Creatinine Ratio 15.1 mg/g (0-30); Microalbumin Urine Random 15.7 mg/L (0-16.7)
[2023-09-13 12:45] LABS: Hemoglobin A1C 6.6 % (<5.7)
== END 2023-09-13 09:50 | disposition home or self-care (01) ==
LOC: ANHLAB 09:50
PROVIDERS: PCP Internal Medicine; Visit Provider Internal Medicine
DX: E03.9 Hypothyroidism, unspecified (principal); E11.9 Type 2 diabetes mellitus without complications; D64.9 Anemia, unspecified; E78.2 Mixed hyperlipidemia; I10 Essential (primary) hypertension
CPT/HCPCS: 36415; 80048; 80061; 82043; 82728; 83036; 83540; 83550; 84439; 84443; 85025

== ENCOUNTER 2023-12-19 12:02 | Outpatient (CLI) | payer MEDICARE, SELFPAY ==
--- NOTE | ~2023-12-19 | XR_ITS ---
EXAMINATION: XR chest 2V 12/19/2023 12:30 INDICATION: Chronic cough and sinus drainage PROCEDURE: 2 view chest COMPARISON: Comparison to multiple prior studies sequentially, with oldest reviewed study dated 09/02. FINDINGS: The lungs are clear. The cardiomediastinal silhouette is within normal limits. There are no pleural effusions. There is no pneumothorax suspected. IMPRESSION: 1: NO ACUTE CARDIOPULMONARY DISEASE. Reviewed, dictated and finalized at location B.
--- NOTE | ~2023-12-19 | XR_ITS ---
EXAMINATION: XR sinus min 3V DATE: 12/19/2023 12:31 INDICATION: Other specified disorders of nose and nasal sinuses. TECHNIQUE: 5 views of the paranasal sinuses were obtained. COMPARISON: CT orbits 09/14/2014 FINDINGS: There is rightward deviation of the nasal septum. The paranasal sinuses are grossly clear. IMPRESSION: 1. Rightward deviation of the nasal septum. Reviewed, dictated and finalized at location A.
== END 2023-12-19 12:03 | disposition home or self-care (01) ==
PROVIDERS: PCP Internal Medicine; Visit Provider Internal Medicine
DX: R05.3 Chronic cough (principal); J34.89 Other specified disorders of nose and nasal sinuses; R09.81 Nasal congestion; J34.2 Deviated nasal septum
CPT/HCPCS: 70220; 71046

== ENCOUNTER 2024-02-06 09:34 | Outpatient (CLI) | payer MEDICARE, SELFPAY ==
--- NOTE | ~2024-02-06 | CT_ITS ---
EXAMINATION: CT sinus wo con DATE: 02/06/2024 10:48 INDICATION: Chronic cough TECHNIQUE: Computed tomography (CT) of the paranasal sinuses was performed without intravenous contra st. The dose-length product was 256.12 mGy-cm. Automated exposure control and iterative reconstructio n technique were employed. COMPARISON: None FINDINGS: No significant mucosal thickening or air-fluid levels. Rightward nasal septal deviation. Pr ominent left-sided heather bullosa. Ostiomeatal units are patent. Mastoids are pneumatized. IMPRESSION: 1. No significant paranasal sinus disease. 2: Rightward nasal septal deviation. 3: Left heather bullosa. Reviewed, dictated and finalized at location B.
--- NOTE | ~2024-02-06 | CT_ITS ---
EXAMINATION: CT diagnostic chest w con DATE: 02/06/2024 10:48 INDICATION: R05.3 - Chronic cough TECHNIQUE: Computed tomography (CT) of the chest was performed with 75 mL Omnipaque-350 intravenous c ontrast. Additional 3D reconstructions utilizing coronal maximum intensity projection (MIP) were perf ormed. Automated exposure control and iterative reconstruction technique were employed. The dose-josse th product was 256.12 mGy-cm. COMPARISON: 05/24/2020 FINDINGS: There are few scattered 3 mm smaller pulmonary nodules at least one of which in the right middle lobe appears calcified consistent with old granulomatous disease. Mild dependent atelectasis in the bilat eral lower lobes. No pneumonia, pulmonary edema or pleural effusion. Heart size is normal. Aortic miki ve calcification. No pericardial effusion. Thoracic aorta is normal in caliber with no dissection. No pathologically enlarged thoracic lymphadenopathy. Small sliding-type hiatal hernia. Moderate thoraci c spondylosis. IMPRESSION: 1. No pneumonia or other acute cardiopulmonary disease. 2. A few 3 mm smaller calcified and noncalcified pulmonary nodules. If the patient is low risk for mary ng cancer, follow-up chest CT is recommended at 12 months. If the patient is high risk (i.e., history of smoking or asbestos or significant radiation exposure), follow-up chest CT is recommended at 6-12 months. 3. Small sliding-type hiatal hernia. Reviewed, dictated and finalized at location A. IMPRESSION: 1. No pneumonia or other acute cardiopulmonary disease. 2. A few 3 mm smaller calcified and noncalcified pulmonary nodules. If the mesha ent is low risk for lung cancer, follow-up chest CT is recommended at 12 months . If the patient is high risk (i.e., history of smoking or asbestos or signific ant radiation exposure), follow-up chest CT is recommended at 6-12 months. 3. Small sliding-type hiatal hernia.
[2024-02-06 10:14] LABS: Estimated Glomerular Filt Rate 60
== END 2024-02-06 09:35 | disposition home or self-care (01) ==
LOC: MICIMG 09:35
PROVIDERS: PCP Internal Medicine; Visit Provider Internal Medicine
DX: R05.3 Chronic cough (principal); J34.89 Other specified disorders of nose and nasal sinuses; R09.81 Nasal congestion; K44.9 Diaphragmatic hernia without obstruction or gangrene; R91.8 Other nonspecific abnormal finding of lung field; J34.2 Deviated nasal septum
CPT/HCPCS: 70486; 71260; Q9967

== ENCOUNTER 2024-02-08 12:34 | Outpatient (CLI) | payer MEDICARE, SELFPAY ==
--- NOTE | 2024-02-09 10:58 | P.PCNPFT_ITS ---
PFT Procedure Performed PFT Procedure Performed Spirometry with Pre/Post Bronchodilator Plethysmography (Lung Vol) Diffusing Cap (DLCO) Flow Vol Loop PFT Interpretation This is a pulmonary function test with pre and post-bronchodilator spirometry, plethysmography and diffusing capacity. The test was performed and results interpreted in accordance with the 2019 and 2005 ATS/ERS Task Force guidelines respectively using the Global Lung Function Initiative-2012 reference equations. Patient demonstrated good effort and cooperation. Reproducibility criteria were met. The quality of the pre bronchodilator spirometry maneuver was Grade A and post bronchodilator spirometry maneuver was Grade A. Findings: Spirometry: The contour the pre bronchodilator expiratory flow tracing demonstrates a mid expiratory plateau or knee pattern in 1 of 3 maneuvers and is normal in 2 maneuvers. The contour the post bronchodilator expiratory flow tracing demonstrates a mid expiratory plateau in all 4 maneuvers. The contour the inspiratory flow tracing is normal. The pre bronchodilator FVC is 2.42 L, 94% predicted. The pre bronchodilator FEV1 is 1.65 L, 85% predicted. The pre bronchodilator FEV1: FVC ratio 68%. The post bronchodilator FVC is 2.55 L, representing a 5% increase. The post bronchodilator FEV1 is 1.84 L, representing a 190 mL increase which corresponds to a 12% increase. The post bronchodilator FEV1: FVC ratio 72%. Plethysmography: The total lung capacity is 4.35 L, 84% predicted. The functional residual capacity is 2.69 L, 89% predicted. The residual volume is 1.93 L, 78% predicted. Diffusing capacity: The diffusing capacity unadjusted for hemoglobin and carboxyhemoglobin is 12.7, 65% predicted. The diffusing capacity adjusted for alveolar volume is 3.89, 96% predicted. In comparison to previous pulmonary function testing on 06/22/2016 in which only pre bronchodilator spirometry was performed. There is no mid expiratory plateau on the 1 pre bronchodilator maneuvers that is shown. The pre bronchodilator FVC has decreased from 2.79 L to 2.44 L. the pre bronchodilator FEV1 is decreased from 1.95 L to 1.65 L. The total lung capacity is unchanged from 4.63 L to 4.35 L. The functional residual capacity is unchanged from 2.62 to 2.69. The residual volume is unchanged from 1.85 L to 1.93 L. The diffusing capacity unadjusted for hemoglobin and carboxyhemoglobin is decreased from 18.8 to 12.7. The diffusing capacity adjusted for alveolar volume is unchanged from 4.46 to 3.89. Impression: There is a reproducible knee pattern of the expiratory flow tracing that is more pronounced in the post bronchodilator maneuvers. The knee pattern can be a normal variant or pathologic and has been attributed to a choke point section of the bronchial tree. The normal variant is more common in younger female patients, decreases with age and is more pronounced in the post bronchodilator efforts. The pattern has also been described with kyphosis, kyphoscoliosis, central obstructing mass, and post lung transplantation. The spirometry is normal without evidence of an obstructive abnormality. There is no significant improvement after inhaling a single dose of albuterol. The lung volumes are normal. The diffusing capacity unadjusted for hemoglobin and carbo xyhemoglobin is moderately decreased and normalizes when adjusted for alveolar volume. Otherwise, the spirometry is normal without evidence of an obstructive abnormality. There is no significant improvement after inhaling a single dose of albuterol as the absolute increase in FEV1 is less than 200 mL. The lung volumes are normal. The diffusing capacity unadjusted for hemoglobin and carboxyhemoglobin is mildly decreased and normalizes when adjusted for alveolar volume. In comparison to previous pulmonary function testing on 06/22/2016, the knee pattern of the expiratory flow tracing is new. There has been a greater than anticipated time dependent decrease in the FVC, FEV1 and diffusing capacity unadjusted for hemoglobin and carboxyhemoglobin with no significant change in the total lung capacity, functional residual capacity, residual volume, diffusing capacity adjusted for alveolar volume. Clinical correlation is recommended.
== END 2024-02-08 12:35 | disposition home or self-care (01) ==
LOC: ANHPFT 12:35
PROVIDERS: PCP Internal Medicine; Visit Provider Internal Medicine
DX: R05.3 Chronic cough (principal)
CPT/HCPCS: 94060; 94726; 94729

== ENCOUNTER 2024-02-11 09:37 | Outpatient (CLI) | payer MEDICARE, SELFPAY ==
[2024-02-11 10:20] LABS: Basophils Percent Auto 0.2 % (0.2-1.2); Eosinophils Absolute Auto 0.1 K/mm3 (0-0.3); Hematocrit 37.3 % (37.0-47.0); Immature Granulocyte Absolute 0.01 K/mm3 (0.00-0.031); Immature Granulocyte Percent A 0.2 % (0-0.5); Lymphocytes Absolute Auto 1.04 K/mm3 (0.9-3.2); Lymphocytes Percent Auto 24.2 % (18.3-44.2); Mean Corpuscular HGB Conc 32.2 g/dl (32-36); Mean Corpuscular Hemoglobin 32.8 pg (26-34); Mean Corpuscular Volume 101.9 fl (80-100); Mean Platelet Volume 9.8 fl (7.4-10.4); Monocytes Absolute Auto 0.4 K/mm3 (0.1-0.6); Monocytes Percent Auto 9.1 % (2.6-8.5); Neutrophils Absolute Auto 2.7 K/mm3 (1.3-6.7); Neutrophils Percent Auto 63.3 % (45.5-73.1); Platelet Count Result 155 k/mm3 (150-375); Red Blood Count 3.66 M/mm3 (4.2-5.4); Red Cell Distribution Width 12.3 % (11.5-14.5); White Blood Count 4.3 K/mm3 (4.5-10.0)
[2024-02-11 10:27] LABS: Add Urine Microscopic? YES; Appearance Urine Clear (Clear); Bacteria Urine None Seen /hpf; Bilirubin Urine Negative (Negative); Blood Urine Negative (Negative); Color Urine Yellow (Yellow); Glucose Urine UA Negative (Negative); Ketones Urine Negative (Negative); Leukocyte Esterase Ur Trace LEU/UL (Negative); Nitrate Urine Negative (Negative); Non Pathogenic Casts 0-2; Protein Urine Negative (Negative); Specific Grav Ur 1.014 (1.001-1.035); Squamous Epithelial Cell Urine None Seen /hpf (Few); WBC Urine 0-5 /hpf (0-3); pH Urine 5.5 (5.0-9.0)
[2024-02-11 10:31] LABS: Alanine Aminotransferase 19 U/L (6-35); Albumin Level 4.3 g/dL (3.5-5.1); Alkaline Phosphatase 49 U/L (38-126); Anion Gap 6 mmol/L (4-12); Aspartate Amino Transferase 25 U/L (14-36); Bilirubin,Total 0.7 mg/dL (0.2-1.3); Blood Urea Nitrogen 14 mg/dL (7-17); Calcium 8.8 mg/dL (8.4-10.2); Carbon Dioxide 31 mmol/L (22-30); Chloride 101 mmol/L (98-107); Cholesterol 212 mg/dL (0-200); Estimated Glomerular Filt Rate > 60; Glucose 202 mg/dL (65-110); HDL Direct 82 mg/dL; Potassium 4.4 mmol/L (3.4-5.0); Sodium 138 mmol/L (137-145); Triglycerides 87 mg/dL (<150)
[2024-02-11 10:39] LABS: Hemoglobin A1C 7.3 % (<5.7)
[2024-02-11 10:42] LABS: LDL Cholesterol Direct 82 mg/dL
[2024-02-11 11:36] LABS: Folic Acid > 20.0 ng/mL (2.76->20)
[2024-02-11 21:31] LABS: Free T4 Free Thyroxine 1.21 ng/mL (0.78-2.19); Vitamin D 25 Hydroxy 42.2 ng/mL
== END 2024-02-11 09:38 | disposition home or self-care (01) ==
PROVIDERS: PCP Internal Medicine; Visit Provider Internal Medicine
DX: E03.9 Hypothyroidism, unspecified (principal); E78.2 Mixed hyperlipidemia; I10 Essential (primary) hypertension; E11.9 Type 2 diabetes mellitus without complications; E53.8 Deficiency of other specified B group vitamins; E55.9 Vitamin D deficiency, unspecified; Z79.899 Other long term (current) drug therapy
CPT/HCPCS: 36415; 80053; 80061; 81001; 82306; 82607; 82746; 83036; 84439; 84443; 85025

== ENCOUNTER 2024-03-20 13:29 | Outpatient (CLI) | payer MEDICARE, SELFPAY ==
--- NOTE | ~2024-03-20 | MM_ITS ---
EXAMINATION: MM diagnostic jacques BI w tommy HISTORY: Left breast pain TECHNIQUE: Additional 3-D tomosynthesis images of the breasts were performed and synthetic 2-D images were generated. CAD analysis was submitted and interpreted. COMPARISON: Comparison to multiple prior studies sequentially, with oldest reviewed study dated 05/2014. BREAST PARENCHYMAL COMPOSITION: Not dense: There are scattered areas of fibroglandular density. FINDINGS: The breasts are stable. There are no suspicious masses, calcifications or architectural dis tortion in either breast to suggest malignancy IMPRESSION: 1. No evidence for malignancy in either breast. 2. Routine yearly screening mammogram and regular clinical breast examination are recommended. BI-RADS Category 1: Negative Reviewed, dictated and finalized at location B. DRY HAND IMPRESSION: 1. No evidence for malignancy in either breast. 2. Routine yearly screening mammogram and regular clinical breast examination a re recommended. BI-RADS Category 1: Negative
== END 2024-03-20 13:30 | disposition home or self-care (01) ==
PROVIDERS: PCP Internal Medicine; Visit Provider Internal Medicine
DX: N64.4 Mastodynia (principal); M79.18 Myalgia, other site
CPT/HCPCS: 77062; 77066; G0279

== ENCOUNTER 2024-05-02 09:21 | Outpatient (CLI) | payer MEDICARE, SELFPAY ==
--- NOTE | ~2024-05-02 | DEXA_ITS ---
Bone Density Report Name: VENKATESH SHIELDS Age: 84 Sex: Female Ethnicity: White Date of : 1940 Indication: osteopenia; monitoring treatment; height loss; Referring Provider: POLO PHAM Study: Bone densitometry was performed. Exam Date: May 02, 2024 Accession number: [id number] Bone Density: Region BMD T-score Z-score Classification AP Spine(L1, L2) 0.852 -1.2 1.4 Osteopenia Femoral Neck (Left) 0.593 -2.3 0.1 Osteopenia Total Hip (Left) 0.737 -1.7 0.5 Osteopenia Femoral Neck (Right) 0.628 -2.0 0.4 Osteopenia Total Hip (Right) 0.755 -1.5 0.7 Osteopenia Total Hip Mean 0.746 -1.6 0.6 Osteopenia World Health Organization criteria for BMD impression classify patients as: Normal (T-score at or above -1.0), Osteopenia (T-score between -1.0 and -2.5), or Osteoporosis (T-score at or below -2.5). 10-year Fracture Risk: FRAX not reported because: Treated for osteoporosis Previous Exams: Region Exam Age BMD T-score BMD Change BMD Change Date g/cm2 vs Baseline vs Previous AP Spine (L1-L2) 05/02/2024 84 0.852 -1.2 0.049 (6.2%)# -0.013 (-1.5%) 03/13/2022 82 0.865 -1.0 0.062 (7.7%)* 0.062 (7.7%)* 12/08/2019 79 0.803 -1.6 Total Hip(Left) 05/02/2024 84 0.737 -1.7 -0.020 (-2.6%) 0.040 (5.8%)# 03/13/2022 82 0.696 -2.0 -0.060 (-7.9%) -0.060 (-7.9%) 12/08/2019 79 0.756 -1.5 Total Hip(Right) 05/02/2024 84 0.755 -1.5 0.012 (1.6%)# 0.011 (1.4%)# 03/13/2022 82 0.745 -1.6 0.002 (0.2%) 0.002 (0.2%) 12/08/2019 79 0.743 -1.6 *Denotes significance at 95% confidence level, LSC for AP Spine = 0.022 g/cm2, LSC for Total Hip = 0.027 g/cm2 # Denotes dissimilar scan types or analysis methods Clinical Information Provided by Patient: Is being treated for osteoporosis Has used the following medications: Prolia (i.e. denosumab), Vitamin D, Calcium Has the following medical conditions: hypothyroidism Patient maximum height was 65.5 Menopause Age: 57 No regular weight bearing exercise Drinks caffeinated beverages Onset of menses at age 15 Number of children 2 Impression: The patient has low bone mass, based on the Left Femoral Neck T-score. No significant bone loss was observed. Discussion: PATIENT UNDER TREATMENT WITH NO SIGNIFICANT BMD LOSS SINCE LAST EXAM. In an untreated patient, BMD typically declines with age. A lack of decline or gain is usually a sign that treatment is efficacious and fracture risk is reduced. It is important to ask patients whether they are taking their medications and to encourage continued and appropriate compliance with their osteoporosis therapies to reduce fracture risk. It is also important to review their risk factors and encourage appropriate calcium and vitamin D intakes, exercise, fall prevention and other lifestyle measures. Follow-Up: Consider a repeat BMD and Vertebral Fracture Assessment (VFA) exam in 2 years or sooner if medically necessary, to reassess this patient's status. Reported by: LEONOR on 05/02/2024 9:51:00 AM. Reviewed, dictated and finalized at location ACoty COLVIN
== END 2024-05-02 09:22 | disposition home or self-care (01) ==
LOC: ANHIMG 09:25
PROVIDERS: PCP Internal Medicine; Visit Provider Internal Medicine
DX: M81.0 Age-related osteoporosis without current pathological fracture (principal); M85.80 Other specified disorders of bone density and structure, unspecified site; Z79.899 Other long term (current) drug therapy
CPT/HCPCS: 77080

== ENCOUNTER 2024-06-20 09:37 | Outpatient (CLI) | payer MEDICARE, SELFPAY ==
[2024-06-20 10:01] LABS: Basophils Percent Auto 0.6 % (0.2-1.2); Eosinophils Absolute Auto 0.1 K/mm3 (0-0.3); Eosinophils Percent Auto 2.4 % (0-4.4); Hematocrit 34.9 % (37.0-47.0); Hemoglobin 11.5 g/dL (12.0-15.0); Immature Granulocyte Absolute 0.02 K/mm3 (0.00-0.031); Immature Granulocyte Percent A 0.4 % (0-0.5); Lymphocytes Absolute Auto 1.27 K/mm3 (0.9-3.2); Lymphocytes Percent Auto 25.4 % (18.3-44.2); Mean Corpuscular Volume 100.3 fl (80-100); Mean Platelet Volume 8.8 fl (7.4-10.4); Monocytes Absolute Auto 0.5 K/mm3 (0.1-0.6); Monocytes Percent Auto 10.6 % (2.6-8.5); Neutrophils Percent Auto 60.6 % (45.5-73.1); Platelet Count Result 196 k/mm3 (150-375); Red Blood Count 3.48 M/mm3 (4.2-5.4); Red Cell Distribution Width 12.2 % (11.5-14.5)
--- OUTSIDE RECORDS SUMMARY | 2024-06-20 10:10 | XMS_ITS | Referral Summary ---
Author Organization [facility] Address [address] [place] [address] Care Team Providers Care Concrete Building Assembler Name Role Phone Min Logan MD Primary Care Provider [phone] Allergies Active Allergy Reactions Criticality Noted Date Comments Tizanidine Other (See comments) Low 11/24/2019 Confused Medications escitalopram (LEXAPRO) 10 mg tablet Take 1 tablet (10 mg total) by mouth daily Active gabapentin (NEURONTIN) 100 mg capsule Take 4 capsules (400 mg total) by mouth 3 (three) times a day Active traZODone (DESYREL) 50 mg tablet Take 1-2 tablets (50-100 mg total) by mouth nightly Active multivitamin capsule Take 1 capsule by mouth daily Active fish oil-dha-epa 1,200-144-216 mg capsule Take 1 capsule by mouth 2 (two) times a day Active losartan (COZAAR) 100 mg tablet Take 1 tablet (100 mg total) by mouth nightly Active aspirin 81 mg enteric coated tablet Take 1 tablet (81 mg total) by mouth daily before dinner 9 Active levothyroxine (SYNTHROID) 88 mcg tablet Take 1 tablet (88 mcg total) by mouth operations research scientist before breakfast 90 tablet 1 Active calcium carbonate-vitamin D3 600 mg (1,500 mg)-800 unit tablet,chewable Take by mouth Active loperamide (IMODIUM) 2 mg capsule Take 1 capsule (2 mg total) by mouth 4 (four) times a day as needed for diarrhea Active ezetimibe (ZETIA) 10 mg tablet Take 1 tablet (10 mg total) by mouth daily Active dicyclomine (BENTYL) 10 mg capsule Take 1 capsule (10 mg total) by mouth 4 (four) times a day before meals and nightly Active SITagliptin phosphate (JANUVIA) 100 mg tabletIndications :type 2 diabetes mellitus Take 1 tablet (100 mg total) by mouth daily Active denosumab (PROLIA) 60 mg/mL syringeIndication s:postmenopausal osteoporosis and high fracture risk Inject 1 mL (60 mg total) under the skin once for 1 dose 1 mL 4 Active benzonatate (TESSALON) 200 mg capsule TAKE 1 CAPSULE BY MOUTH THREE TIMES DAILY NEEDED FOR COUGH 4 Active guaiFENesin-codei ne (GUAITUSS AC) liquid 100-10 mg/5 mL 10 mL 4 Active FeroSuL 325 mg (65 mg iron) tablet Take 1 tablet (325 mg total) by mouth 2 (two) times a day [address] (PROTONIX) 40 mg EC tablet Take 1 tablet (40 mg total) by mouth 2 (two) times a day 4 Active Active Problems Problem Noted Date Diagnosed Date Chronic cough 02/18/2024 Assessment & Plan (02/18/2024 10:09 AM NUMERICAL CONTROL ROUTER OPERATOR): I suspect her persistent cough is likely due to reflux disease. I recommended that she continue with the reflux medication. I talked with her about taking this medication on an empty stomach and then eating something about half an hour afterwards. It would be most effective with that approach. She understands. If things persist she could consider adding nortriptyline at bedtime. She will return if that is the case or possibly contact her primary for that. Hoarseness 02/18/2024 Assessment & Plan (02/18/2024 10:08 AM NUMERICAL CONTROL ROUTER OPERATOR): I reassured her that her vocal cords look okay and I recommended no intervention. She understands. Impacted cerumen of right ear 02/18/2024 Assessment & Plan (02/18/2024 9:59 AM NUMERICAL CONTROL ROUTER OPERATOR): This ear was cleaned without difficulty. Needs no further intervention. Thoracic spine pain 05/08/2023 Assessment & Plan (05/08/2023 12:14 PM NUMERICAL CONTROL ROUTER OPERATOR): Ms. Domínguez has a primary complaint of thoracic paraspinal pain involving her ribs which is constant in nature and does not seen to be due to muscle spasm by her report. She has a T-score -2.7 and we discussed that in general thoracic spine surgery is reserved for severe compression and loss of neurological function. Treatment for pain has very poor outcomes with surgery and would be at very high risk given her poor bone density. We discussed that if her symptoms worsen, I would recommend that she be evaluated by pain management possible injections. She wishes to hold off on pain management evaluation at this time. We will not set up a scheduled appointment. She had questions about intra-abdominal pathology that could be causing the pain. We discussed that this is not my area of expertise and that she should follow-up with her primary care physician for further evaluation of this. Age-related osteoporosis wit hout current pathological fracture 03/27/2022 Assessment & Plan (11/17/2022 12:15 PM CDT): 82 years old female seen for management of osteoporosis. She is on alendronate for more than 5 years. She did not tolerate Forteo. Treatment options discussed. Will transition to denosumab 60 mg every 6 months. Potential side effects including but not limited to allergic reaction, hypocalcemia, ONJ and atypical femoral fractures discussed. Continue calcium vitamin-D. Weight-bearing exercises. Fall precautions discussed. Follow-up in 6 months Assessment & Plan (03/27/2022 1:42 PM NUMERICAL CONTROL ROUTER OPERATOR): Treatment options risks and alternatives discussed. Recommended trial of anabolic agent. Potential side effects including but not limited to nausea vomiting, allergic reaction and hypercalcemia discussed. Plan. 1. Forteo 20 mcg daily. She will apply for assistance program. 2. Stop alendronate once Forteo approved. 3. Plan to transition to denosumab after 2 years of Forteo 4. Continue calcium and vitamin-D. 5. Weight-bearing exercises and fall precautions discussed. 6. Follow-up in 4 months Myalgia 12/31/2020 Assessment & Plan (12/31/2020 3:48 PM CDT): Will check CK. Osteopenia of multiple sites 06/13/2020 Assessment & Plan (08/23/2021 10:53 PM CDT): FRAX score is 17% for major osteoporotic fracture and 5.5% for hip fracture. Did not tolerate Forteo. Prolia not covered by insurance. Application for Prolia assistance program. Continue calcium and vitamin-D. Weight-bearing exercises Fall precautions discussed. Repeat bone density in November 2021 with primary MD. Follow-up in 7 months. Potential side effects of Prolia including but not limited to allergic reaction, hypocalcemia, osteonecrosis of the jaw and atypical femoral fractures discussed. Assessment & Plan (12/31/2020 3:52 PM CDT): 80 years old female seen in follow-up for osteopenia with lumbar pseudoarthrosis. She did not tolerate Forteo due to myalgias. Treatment options discussed: Reluctant to restart Forteo. Will transition to Prolia. Continue vitamin-D supplementation. RTC in 6 months. Assessment & Plan (06/13/2020 12:54 PM NUMERICAL CONTROL ROUTER OPERATOR): Images from the original note were not included. 80 years old female with history of type 2 diabetes mellitus and lumbar spinal stenosis status post L3-L5 decompression and fusion seen for evaluation of osteopenia. Lumbar myelogram showed lucency surrounding pedicle screws bilaterally at L3, L4 and possibly L5 on the left side. DXA performed in November 2019 showed L1- L2 T-score of-1.6, left femoral neck T-score -2.4 and total left hip T-score of- 1.5. FRAX score is 7.7% for major osteoporotic fracture and 5.5% for hip fracture (threshold for treatment is 3%). Treatment options including anabolic agents (Forteo/Tymlos and Evenity) Vs anti -resorptive agents (Prolia and Reclast) discussed. Pros and cons including potential side effects of each treatment modality discussed in detail with the patient. She would benefit from 2 years of anabolic therapy followed by anti resorptive agent. She has concerns with daily injections and prefers Prolia.. She would like some time to decide and let us know. Information material provided. Will check PTH , calcium and vitamin-D to rule out normocalcemic hyperparathyroidism. Continue vitamin-D 1000 units daily and calcium from dietary sources 1000 units daily. All her questions were addressed. Follow-up in 3 months. Essential hypertension 06/13/2020 Assessment & Plan (11/17/2022 12:16 PM CDT): Chronic, stable. Continue losartan. Low-salt diet Assessment & Plan (03/27/2022 1:42 PM NUMERICAL CONTROL ROUTER OPERATOR): Chronic, well controlled Continue losartan Low-salt diet Assessment & Plan (08/23/2021 10:49 PM CDT): Chronic, stable. Continue losartan. DASH diet. Assessment & Plan (12/31/2020 3:48 PM CDT): Stable on losartan. Low-salt diet and exercise as tolerated Assessment & Plan (06/13/2020 12:04 PM NUMERICAL CONTROL ROUTER OPERATOR): Stable on losartan. Hyperlipidemia associated with type 2 diabetes margaret schwarz 06/13/2020 Assessment & Plan (11/17/2022 12:16 PM CDT): LDL 107, goal less than 100. Continue Zetia Low cholesterol diet Assessment & Plan (03/27/2022 1:40 PM NUMERICAL CONTROL ROUTER OPERATOR): Continue Nexlizet. Low cholesterol diet Will request previous labs. Assessment & Plan (08/23/2021 10:51 PM CDT): LDL 107. Continue Nexlizet. Low cholesterol/low-fat diet Assessment & Plan (12/31/2020 3:49 PM CDT): Stable. Continue rosuvastatin 20 mg HS. Assessment & Plan (06/13/2020 12:04 PM NUMERICAL CONTROL ROUTER OPERATOR): LDL at goal. Continue rosuvastatin 20 mg HS. Lumbar pseudoarthrosis 06/13/2020 Assessment & Plan (05/08/2023 12:11 PM NUMERICAL CONTROL ROUTER OPERATOR): Ms. Domínguez has known lumbar pseudoarthrosis with the bone mineral density of -2.7. This does not seem to be symptomatic at this time. Assessment & Plan (04/18/2022 2:49 PM NUMERICAL CONTROL ROUTER OPERATOR): Ms. Domínguez has a known pseudoarthrosis at the L3-4 level with a bone density of -2.7. She is considering restarting Forteo or an equivalent medication. She does not have any new pain, tingling, weakness in her legs or any new bowel or bladder issues. Given her bone quality, I do not think that she would benefit from any surgical intervention unless she was losing function and the benefits outweighed risks. She voices understanding of this. We will not set up a scheduled appointment, but I would happy see back point on as-needed basis. Assessment & Plan (01/25/2021 11:17 AM CDT): Ms. Domínguez is clinically doing well after L3-5 decompression and fusion. She has known pseudoarthrosis, but has no movement within the construct and seems to have some bone filling in around the screws. Her primary complaint is of thoracic pain at about the T10 level. On lateral x-rays there is no obvious compression fracture at this level. She has no neurological signs. This could be treated with injections by pain management. We discussed that it is reasonable to restart the Forteo to increase her bone density and prevent the chance of future fractures. I would be happy to see her back at any point on as-needed basis. We discussed that summer symptoms are consistent with poor vascular flow to her legs. If this worsens, she may benefit from formal evaluation by vascular surgery. She will try to supplement her potassium to prevent leg cramps. Assessment & Plan (06/13/2020 12:39 PM NUMERICAL CONTROL ROUTER OPERATOR): Management of osteopenia as above. Acquired hypothyroidism 06/10/2020 Assessment & Plan (11/17/2022 12:15 PM CDT): Clinically euthyroid Continue levothyroxine 88 mcg daily TSH today TSH goal 0.3-4.2. TSH annually if at goal. Assessment & Plan (03/27/2022 1:42 PM NUMERICAL CONTROL ROUTER OPERATOR): Clinically euthyroid Continue levothyroxine 88 mcg daily. TSH annually Assessment & Plan (08/23/2021 10:49 PM CDT): Clinically and biochemically euthyroid Continue levothyroxine 88 mcg daily. TSH Q 6-12 months. TSH was 0.3-4.2. Assessment & Plan (12/31/2020 3:53 PM CDT): Continue levothyroxine 88 mcg daily. TSH today TSH goal 0.4-4.5. Assessment & Plan (06/13/2020 12:03 PM NUMERICAL CONTROL ROUTER OPERATOR): TSH was 0.0 27 in March 2020. TSH goal 0.45-4.5. Avoid TSH suppression due to risk of worsening BMD. Continue levothyroxine 100 mcg daily. Will check TSH. Dose adjustment based on above. Type 2 diabetes mellitus wit h circulatory disorder, with long-term current use of insulin ([facility]) 06/10/2020 Assessment & Plan (11/17/2022 12:16 PM CDT): Chronic, stable. Continue metformin 1000 mg b.i.d. and Farxiga 10 mg daily Consistent carb diet A1c today. Annual dilated eye exam Assessment & Plan (03/27/2022 1:41 PM NUMERICAL CONTROL ROUTER OPERATOR): Chronic, stable Continue Xigduo mg with breakfast and metformin 1000 mg with dinner Consistent carb diet. Assessment & Plan (08/23/2021 10:54 PM CDT): Chronic, stable. Hemoglobin A1c is 6.5%. Continue Xigduo 01/1000 mg at breakfast and metformin 1000 mg at dinner Consistent carb diet. Assessment & Plan (12/31/2020 3:50 PM CDT): She reports blood sugars in the 160s-200s. Continue Xigduo 01/1000 mg daily. Can change Xigduo to 08/999 mg b.i.d. if A1c is not at goal. Consistent carb diet and exercise as tolerated. Assessment & Plan (06/13/2020 12:04 PM NUMERICAL CONTROL ROUTER OPERATOR): Well controlled. Hemoglobin A1c 6.4%. Continue Xigduo 01/1000 mg daily. Consistent carb diet. Management per primary MD. Pain of left sacroiliac joint 06/12/2019 Assessment & Plan (11/24/2019 11:33 AM CDT): Ms. Domínguez continues to have left SI joint pain with sitting to standing position and bending. We will renew her script for physical therapy for SI joint stretching and strengthening. I also encouraged her to consider left hip cortisone or SI injection with pain management or an Orthopedic surgeon. She is not ready to consider this at this time. I plan to see her back in 3 months for evaluation after her therapy is complete. Patient verbalizing understanding and has no further questions or concerns at this time. CD of xrays returned to patient. Assessment & Plan (06/12/2019 1:22 PM NUMERICAL CONTROL ROUTER OPERATOR): Ms. Domínguez is status post L3-L5 decompression and fusion. She now has left SI joint pain with standing and sitting. We will give her a script for physical therapy for back, leg an SI joint stretching and strengthening. I plan to see her back in six months time with AP and lateral lumbar spine films at that time. Lumbar post-laminectomy syndrome 01/22/2019 Assessment & Plan (09/27/2020 11:00 AM CDT): Ms. Domínguez continues to have low back pain. She has loosening of the hardware at L3-4 with solid fusion at L4-5. Her bone density study shows a T-score of -2.4. She is being followed by and he has recommended Forteo injections. Patient is concerned about the [id number] cost but is aware of some financial assistance and is considering starting Forteo at this time. We reviewed her CT scan and the importance of starting medication to help create good bone. She ultimately will need a revision of her hardware and fusion. She will return to see Dr. Portillo in January for follow-up appointment after she has started Forteo injections. I will have her obtain lumbar spine x-rays at that time as well. Answered the patient's questions and concerns and she verbalizes understanding. Assessment & Plan (11/24/2019 11:30 AM CDT): Ms Domínguez continues to have left low back and SI joint pain. Her lumbar xray show bilateral L3 pedicle screw lucency without much posterolateral grafting indicating a possible pseudoarthrosis. This would be further confirmed by CT lumbar. Discussed with patient and her to get a DEXA scan to evaluate overall bone health. Patient states she was on Fosamax years ago but took herself off of it and has not taken anything include Calcium. Patient states she is not ready to consider further lumbar surgery at this point. Assessment & Plan (06/12/2019 1:23 PM NUMERICAL CONTROL ROUTER OPERATOR): Ms. Domínguez is doing well in regards to her symptoms of neurogenic claudication. She has some low back pain on the left which is consistent with SI joint pain. Assessment & Plan (01/22/2019 11:51 AM CDT): PLAN: 1. Continue activity restrictions as outlined prior to surgery. 2. Starting February 24 she may start physical therapy via [facility]/home exercise program 3. Continue brace. 4. After 6 weeks, patient may resume NSAIDs, may increase activity as tolerated, wean off brace. WORK STATUS: 1. Retired FOLLOW UP APPT: With Dr. Portillo in 4.5 months with Flexion/Extension Lumbar spine films. Resolved Problems Problem Noted Date Diagnosed Date Resolved Date Neurogenic claudication due to lumbar spinal stenosis 11/26/2018 06/12/2019 Overview (11/26/2018): Added automatically from request for surgery [id number] Lumbar stenosis with neurogenic claudication 9 06/12/2019 Assessment & Plan (11/13/2018 2:57 PM CDT): Ms. Domínguez has lumbar stenosis with neurogenic claudication. Workup reveals adjacent level stenosis at L3-4 with a prior fusion at L4-5. She has not had good response to therapy or injection. She wishes to consider surgical intervention. We discussed that surgery would involve a wide decompression L3-4 and fusion at the level with revision of prior hardware at L4-5. She understands and wishes to proceed. We will arrange this to occur at our earliest convenience. Social History Tobacco Use Types Packs/Day Years Used Date Smoking Tobacco: Never Smokeless Tobacco: Never Tobacco Cessation:Counseling Given: Not Answered Alcohol Use Standard Drinks/Week Comments Yes 0 (1 standard drink = 0.6 oz pur e alcohol) Occasionally PHQ-2 Answer Date Recorded PHQ-2 Total Score (If total score is 3 or more points, staff should administer the PHQ-9) 0 03/27/2022 Comments Unknown Sex and Gender Information Value Date Recorded Sex Assigned at Not on file Legal Sex Female 2:29 AM NUMERICAL CONTROL ROUTER OPERATOR Gender Identity Not on file Sexual Orientation Not on file Occupation Industry Job Start Date Job End Date Retired Not on file Not on file Not on file Last Filed Vital Signs Vital Sign Reading Time Taken Comments Blood Pressure 110/60 11/17/2022 10:48 AM CDT Pulse 72 11/17/2022 10:48 AM CDT Temperature 36.3 C (97.3 F) 03/27/2022 9:53 AM NUMERICAL CONTROL ROUTER OPERATOR Respiratory Rate 18 02/13/2024 10:40 AM CDT Oxygen Saturation 97% 12/14/2018 12:31 PM CDT Inhaled Oxygen Concentration - - Weight 66.7 kg (147 lb) 02/13/2024 10:40 AM CDT Height 165.1 cm (5' 5 ) 02/13/2024 10:40 AM CDT Body Mass Index 24.46 02/13/2024 10:40 AM CDT Plan of Treatment Not on file Medical Devices Implanted Type Area Accounting Clerk Device Identifier Shelf Expiration Date Model / Serial / Lot IsCodeGuard [id number] Inqu P[employer] [facility] Work[facility] 10cc Bone Graft Hyaluronic Acid Poly - [id number] Implanted:Qty: 1 on 12/13/2018 by Jose Portillo MD at [facility] N/A: Spine Lumbar Isto [employer] 08/01/2020 [id number] / / [id number] Core Link [id number] [place] 6.5mm 40mm Spine Pedicle Screw Bone 5500 Series - [id number] Implanted:Qty: 2 on 12/13/2018 by Jose Portillo MD at [facility] N/A: Spine Lumbar Core Link [id number] / / Core Link [id number] [place] 7mm 40mm Spine Pedicle Screw Bone Nonsterile 5500 Series - [id number] Implanted:Qty: 4 on 12/13/2018 by Jose Portillo MD at [facility] N/A: Spine Lumbar Core Link [id number] / / Core Link [id number] [place] Screw Set 5500 Series - [id number] Implanted:Qty: 6 on 12/13/2018 by Jose Portillo MD at [facility] N/A: Spine Lumbar Core Link [id number] / / Core Link [id number] [place] 5.5mm 65mm Line Prebent Johnie Spinal Nonsterile 5500 Series - [id number] Implanted:Qty: 1 on 12/13/2018 by Jose Portillo MD at [facility] N/A: Spine Lumbar Core Link [id number] / / Procedures Procedure Name Priority Date/Time Associated Diagnosis Comments EGFR Routine 11/17/2022 11:34 AM CDT Age-related osteoporosis without current pathological fracture HEMOGLOBIN A1C Routine 11/17/2022 11:34 AM CDT Type 2 diabetes mellitus with other circulatory complication, with long-term current use of insulin (HCC) LIPID PANEL Routine 12/27/2021 10:00 AM CDT DEXA AXIAL SKELETON BONE DENSITY 1 OR MORE SITES Schedule Routine, Read Routine (OP Routine) 12/08/2019 from Last 3 Months or Most Recently Relevant to Health Maintenance Results * eGFR (11/17/2022 11:34 AM CDT) [facility] eGFR 66 mL/min/1. 73 m2 [facility] Comment: Interpretive Data Reference Interval Normal >/= 90 mL/min/1.73m2 Mildly decreased* 60 - 89 mL/min/1.73m2 Mildly to moderately decreased 45 - 59 mL/min/1.73m2 Moderately to severely decreased 30 - 44 mL/min/1.73m2 Severely decreased 15 - 29 mL/min/1.73m2 Kidney Failure < 15 mL/min/1.73m2 *Relative to young adult level Estimated glomerular filtration rate is determined by the 2020 CKD-EPI equation recommended by the National Kidney Foundation (A Unifying Approach to GFR Estimation: Recommendations of the NKF-ASK Task Force on Reassessing the Inclusion of Race in Diagnosing Kidney Disease, JASN 2020). The CKD-EPI equation should not be used for patients with unstable renal function and has not been validated in children and those over 70. Current interpretive data was last reviewed 2021. Blood 11/17/2022 11:3 4 AM CDT 11/17/2022 2:52 PM CDT Josué Ceron MD LAB BLOOD ORDERABLES F inal Result Performing Organization Address City/[facility]/ZIP Co de Phone Number [facility] [address] Department [place] [address] * (ABNORMAL) Hemoglobin A1c (11/17/2022 11:34 AM CDT) Hgb A1C 7.5(H) 4.0 - 5.6 % [facility] Estimated Average Glucose 169 mg/dL [facility] Comment: The ADA recommends reporting an estimated Average Glucose (eAG) with all Hemoglobin A1c results using the equation derived from a study of 507 normal and diabetic adults. Minority populations were underrepresented and children were not included. (Diabetes Care 31:4818-6650, 2008). The eAG is not equivalent to a fasting glucose. Blood 11/17/2022 11:3 4 AM CDT 11/17/2022 2:52 PM CDT Josué Ceron MD LAB BLOOD ORDERABLES F inal Result Performing Organization Address City/[facility]/ZIP Co de Phone Number [facility] [address] Department [place] [address] * (ABNORMAL) Lipid panel (12/27/2021 10:00 AM CDT) SCRIBED Cholesterol, Total 202(A) 0 - 200 EXTERNAL LAB SCRIBED HDL 70 50 - 100 EXTERNAL LAB SCRIBED LDL 89 0 - 120 EXTERNAL LAB SCRIBED Triglycerides 84 0 - 200 EXTERNAL LAB Blood 12/27/2021 10:0 0 AM CDT us Generic External Data Provider LAB BLOOD ORDERAB LES Final Result EXTERNAL LAB * Dexa Axial Skeleton Bone Density 1 or 2 Site (12/08/2019) Anatomical Region Laterality Modality Body N/A Radiographic Yara ging us Min Logan MD IMG DXA PROCEDURES Final Resu lt from Last 3 Months or Most Recently Relevant to Health Maintenance Insurance MEDICARE SOLUTIONS [facility] MEDICARE Address: [facility] [address] [place] [address] [facility] MDCR HMO REF MEDICARE SOLUTIONS Advance Directives For more information, please contact: [phone] * Full Code (Latest Code Status on File) Date Activated Date Inactivated Comments 12/13/2018 1:49 PM 12/14/2018 7:30 PM Care Teams Concrete Building Assembler Relationship Specialty Start Date End Date Min Logan MD [address] [facility] [address] [facility] [address] [place] [address] PCP - General 11/30/11
--- OUTSIDE RECORDS SUMMARY | 2024-06-20 10:10 | XMS_ITS | Clinical Summary ---
Author Organization [facility] Address [address] [place] [address] Care Team Providers Care Echocardiography Tech Name Role Phone Min Logan MD Primary Care Provider [phone] Allergies Active Allergy Reactions Criticality Noted Date [...] 1 tablet (88 mcg total) by mouth colorectal surgeon before breakfast 90 tablet 1 Active calcium [...] 02/18/2024 Assessment & Plan (02/18/2024 10:09 AM GEOGRAPHIC INFORMATION SYSTEM ANALYST): I suspect her persistent cough is likely [...] 02/18/2024 Assessment & Plan (02/18/2024 10:08 AM GEOGRAPHIC INFORMATION SYSTEM ANALYST): I reassured her that her vocal cords look okay and I recommended no intervention. She understands. Impacted cerumen of right ear 02/18/2024 Assessment & Plan (02/18/2024 9:59 AM GEOGRAPHIC INFORMATION SYSTEM ANALYST): This ear was cleaned without difficulty. Needs no further intervention. Thoracic spine pain 05/08/2023 Assessment & Plan (05/08/2023 12:14 PM GEOGRAPHIC INFORMATION SYSTEM ANALYST): Ms. Domínguez has a primary complaint of [...] months Assessment & Plan (03/27/2022 1:42 PM GEOGRAPHIC INFORMATION SYSTEM ANALYST): Treatment options risks and alternatives discussed. Recommended [...] months. Assessment & Plan (06/13/2020 12:54 PM GEOGRAPHIC INFORMATION SYSTEM ANALYST): Images from the original note were not [...] diet Assessment & Plan (03/27/2022 1:42 PM GEOGRAPHIC INFORMATION SYSTEM ANALYST): Chronic, well controlled Continue losartan Low-salt diet Assessment & Plan (08/23/2021 10:49 PM CDT): Chronic, stable. Continue losartan. DASH diet. Assessment & Plan (12/31/2020 3:48 PM CDT): Stable on losartan. Low-salt diet and exercise as tolerated Assessment & Plan (06/13/2020 12:04 PM GEOGRAPHIC INFORMATION SYSTEM ANALYST): Stable on losartan. Hyperlipidemia associated with type 2 diabetes margaret schwarz 06/13/2020 Assessment & Plan (11/17/2022 12:16 PM CDT): LDL 107, goal less than 100. Continue Zetia Low cholesterol diet Assessment & Plan (03/27/2022 1:40 PM GEOGRAPHIC INFORMATION SYSTEM ANALYST): Continue Nexlizet. Low cholesterol diet Will request previous labs. Assessment & Plan (08/23/2021 10:51 PM CDT): LDL 107. Continue Nexlizet. Low cholesterol/low-fat diet Assessment & Plan (12/31/2020 3:49 PM CDT): Stable. Continue rosuvastatin 20 mg HS. Assessment & Plan (06/13/2020 12:04 PM GEOGRAPHIC INFORMATION SYSTEM ANALYST): LDL at goal. Continue rosuvastatin 20 mg HS. Lumbar pseudoarthrosis 06/13/2020 Assessment & Plan (05/08/2023 12:11 PM GEOGRAPHIC INFORMATION SYSTEM ANALYST): Ms. Domínguez has known lumbar pseudoarthrosis with the bone mineral density of -2.7. This does not seem to be symptomatic at this time. Assessment & Plan (04/18/2022 2:49 PM GEOGRAPHIC INFORMATION SYSTEM ANALYST): Ms. Domínguez has a known pseudoarthrosis at [...] cramps. Assessment & Plan (06/13/2020 12:39 PM GEOGRAPHIC INFORMATION SYSTEM ANALYST): Management of osteopenia as above. Acquired hypothyroidism 06/10/2020 Assessment & Plan (11/17/2022 12:15 PM CDT): Clinically euthyroid Continue levothyroxine 88 mcg daily TSH today TSH goal 0.3-4.2. TSH annually if at goal. Assessment & Plan (03/27/2022 1:42 PM GEOGRAPHIC INFORMATION SYSTEM ANALYST): Clinically euthyroid Continue levothyroxine 88 mcg daily. TSH annually Assessment & Plan (08/23/2021 10:49 PM CDT): Clinically and biochemically euthyroid Continue levothyroxine 88 mcg daily. TSH Q 6-12 months. TSH was 0.3-4.2. Assessment & Plan (12/31/2020 3:53 PM CDT): Continue levothyroxine 88 mcg daily. TSH today TSH goal 0.4-4.5. Assessment & Plan (06/13/2020 12:03 PM GEOGRAPHIC INFORMATION SYSTEM ANALYST): TSH was 0.0 27 in March 2020. TSH goal 0.45-4.5. Avoid TSH suppression due to risk of worsening BMD. Continue levothyroxine 100 mcg daily. Will check TSH. Dose adjustment based on above. 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 Continue metformin 1000 mg b.i.d. and Farxiga 10 mg daily Consistent carb diet A1c today. Annual dilated eye exam Assessment & Plan (03/27/2022 1:41 PM GEOGRAPHIC INFORMATION SYSTEM ANALYST): Chronic, stable Continue Xigduo mg with breakfast [...] tolerated. Assessment & Plan (06/13/2020 12:04 PM GEOGRAPHIC INFORMATION SYSTEM ANALYST): Well controlled. Hemoglobin A1c 6.4%. Continue Xigduo [...] patient. Assessment & Plan (06/12/2019 1:22 PM GEOGRAPHIC INFORMATION SYSTEM ANALYST): Ms. Domínguez is status post L3-L5 decompression [...] Forteo injections. Patient is concerned about the ovm-ib-mynluj cost but is aware of some financial [...] point. Assessment & Plan (06/12/2019 1:23 PM GEOGRAPHIC INFORMATION SYSTEM ANALYST): Ms. Domínguez is doing well in regards [...] (11/26/2018): Added automatically from request for surgery [id number] Lumbar stenosis with neurogenic claudication 9 06/12/2019 [...] this to occur at our earliest convenience. Surgical History Surgery Date Site/Laterality Comments CATARACT EXTRACTION 2009 & 2014 Bilateral SECTION 04/16/1974 - 04/15/1975 LUMBAR FUSION 04/16/2013 - 04/15/2014 L4-5 PSF (Cipriano) TUBAL LIGATION 04/16/1981 - 04/15/1982 DILATION AND CURETTAGE OF UTERUS 1967, 1968 &1969 LUMBAR FUSION 11/14/2018 - 12/14/2018 S/P L3-5 PSF (Bandar) Medical History Medical History Date Comments Hypertension Diabetes mellitus (HCC) Hypothyroidism Vertigo Osteopenia GERD (gastroesophageal reflux disease) Anxiety and depression Frozen shoulder 2006, 2011 Bilateral Spinal stenosis Type 2 diabetes mellitus (HCC) Allergies PVD (peripheral vascular disease) HL (hearing loss) Osteoporosis Family History Medical History Relation Name Comments Hypertension Father Stroke Father Stroke Mother Cancer Other 1 Family history of Cancer; Coronary artery disease Other 2 Fami ly history of Coronary artery disease; Diabetes Other 3 Family history of Diabetes mellitus; Hypertension Other 4 Family history of Hypertension; Lung disease Other 5 Family history of lung problems; Mental illness Other 6 Family histor y of Mental illness; Stroke Other 7 Family history of Stroke; Cancer Sister Diabetes Sister Heart disease Sister Hypertension Sister Relation Name Status Comments Father Mother Other 1 Other 2 Other 3 Other 4 Other 5 Other 6 Other 7 Sister Social History Tobacco Use Types Packs/Day Years [...] on file Legal Sex Female 2:29 AM GEOGRAPHIC INFORMATION SYSTEM ANALYST Gender Identity Not on file Sexual Orientation Not on file Occupation Industry Job Start Date Job End Date Retired Not on file Not on file Not on file Obstetrics History Last Filed Vital Signs Vital Sign Reading Time Taken Comments Blood Pressure 110/60 11/17/2022 10:48 AM CDT Pulse 72 11/17/2022 10:48 AM CDT Temperature 36.3 C (97.3 F) 03/27/2022 9:53 AM GEOGRAPHIC INFORMATION SYSTEM ANALYST Respiratory Rate 18 02/13/2024 10:40 AM CDT Oxygen Saturation 97% 12/14/2018 12:31 PM CDT Inhaled Oxygen Concentration - - Weight 66.7 kg (147 lb) 02/13/2024 10:40 AM CDT Height 165.1 cm (5' 5 ) 02/13/2024 10:40 AM CDT Body Mass Index 24.46 02/13/2024 10:40 AM CDT Plan of Treatment Health Maintenance Due Date Last Done Comments Albumin Creatinine Ratio, Urine 1942 Fall Risk Assessment 1940 Dilated Eye Exam 1942 DTaP/Tdap/Td Vaccine (1 - Tdap) 1953 Hepatitis B Screening 01/07/1960 Well Visit 65+ 2007 Zoster Vaccine (2 of 3) 03/22/2012 01/26/2012 Pneumococcal vaccine 65+ (2 of 2 - PCV) 11/11/2015 11/10/2014, 11/05/2014 Osteoporosis Screening-Bone Density Scan 12/07/2021 12/08/2019 Lipid Panel 12/27/2022 12/27/2021, 03/31/2020 Depression Screening 03/27/2023 03/27/2022, 08/23/2021, 12/31/2020, Additional history exists Hemoglobin A1C 05/20/2023 11/17/2022, 12/15, 12/31/2020, Additional history exists Foot Exam 11/18/2023 11/17/2022, 03/16, 08/23/2021, Additional history exists eGFR 11/18/2023 11/17/2022, 03/16, 12/31/2020, Additional history exists Influenza Vaccine (#1) 2023 8, 01/12/2017, 02/15/2015, Additional history exists Medical Devices Implanted Type Area Occ Therapy Asst Device Identifier Shelf Expiration Date Model / Serial / Lot [employer] [id number] Inqu Paste Mix Plus Impress Associate 10cc Bone Graft Hyaluronic Acid Poly - [id number] Implanted:Qty: 1 on 12/13/2018 by Jose Portillo MD at [facility] N/A: Spine Lumbar [employer] 08/01/2020 [id number] / / [id number] Core Link [id number] [place] 6.5mm 40mm Spine Pedicle Screw Bone 5500 Series - [id number] Implanted:Qty: 2 on 12/13/2018 by Jose Portillo MD at [facility] N/A: Spine Lumbar Core Link [id number] / / Core Link [id number] [place] 7mm 40mm Spine Pedicle Screw Bone Nonsterile 5500 Series - [id number] Implanted:Qty: 4 on 12/13/2018 by Jose Portillo MD at [facility] N/A: Spine Lumbar Core Link [id number] / / Core Link [id number] [place] Screw Set 5500 Series - [id number] Implanted:Qty: 6 on 12/13/2018 by Jose Portillo MD at [facility] N/A: Spine Lumbar Core Link [id number] / / Core Link [id number] [place] 5.5mm 65mm Line Prebent Johnie Spinal Nonsterile 5500 Series - [id number] Implanted:Qty: 1 on 12/13/2018 by Jose Portillo MD at [facility] N/A: Spine Lumbar Core Link [id number] / / Procedures Procedure Name Priority Date/Time [...] Results * eGFR (11/17/2022 11:34 AM CDT) eGFR 66 mL/min/1. 73 m2 [facility] Comment: Interpretive Data Reference Interval Normal >/= [...] MD LAB BLOOD ORDERABLES F inal Result [facility] [address] [place] [address] * (ABNORMAL) Hemoglobin A1c (11/17/2022 11:34 AM CDT) Hgb A1C 7.5(H) 4.0 - 5.6 % [facility] Estimated Average Glucose 169 mg/dL [facility] Comment: The ADA recommends reporting an estimated Average Glucose (eAG) with all Hemoglobin A1c results using the equation derived from a study of 507 normal and diabetic adults. Minority populations were underrepresented and children were not included. (Diabetes Care 31:6087-5368, 2008). The eAG is not equivalent to a fasting glucose. Blood 11/17/2022 11:3 4 AM CDT 11/17/2022 2:52 PM CDT us Josué Ceron MD LAB BLOOD ORDERABLES F inal Result [facility] [address] Department [place] [address] * (ABNORMAL) Lipid panel (12/27/2021 10:00 AM CDT) SCRIBED Cholesterol, Total 202(A) 0 - 200 EXTERNAL LAB SCRIBED HDL 70 50 - 100 [facility] LAB SCRIBED LDL 89 0 - 120 [facility] LAB SCRIBED Triglycerides 84 0 - 200 EXTERNAL LAB Blood 12/27/2021 10:0 0 AM CDT us Generic External Data Provider LAB BLOOD ORDERAB LES Final Result Performing Organization Address City/[facility] Co de Phone Number EXTERNAL LAB * Dexa Axial Skeleton Bone Density 1 or 2 Site (12/08/2019) Anatomical Region Laterality Modality Body N/A Radiographic Yara ging us Min Logan MD IMG DXA PROCEDURES Final Resu lt from Last 3 Months or Most Recently Relevant to Health Maintenance [place] [address] [facility] MDCR HMO REF MEDICARE SOLUTIONS Advance Directives For more information, please contact: [phone] * Full Code (Latest Code Status on File) Date Activated Date Inactivated Comments 12/13/2018 1:49 PM 12/14/2018 7:30 PM Care Teams Echocardiography Tech Relationship Specialty Start Date End Date Min Logan MD [address] [place] [address] PCP - General 11/30/11
--- OUTSIDE RECORDS SUMMARY | 2024-06-20 10:10 | XMS_ITS | Continuity of Care Document ---
Author Organization [facility] Address [address] [place] [address] [place] [address] Phone Care Team Providers Care Blade Operator Name Role Phone Gerry Diaz Unavailable Unavailable Procedures Procedure Date Office/outpatient Visit, Est Dilated Retinal Exam W Interpretation Se Post-op Follow-up Visit Post-op Follow-up Visit Post-op Follow-up Visit Remove Cataract, Insert Lens,Comanaged M PreOp Assessment Performed No Charge Screening Visit [facility] Office/outpatient Visit, [facility] Advance Directives Directive Yes / No Effective Date File Name No Information Encounters Encounter Description Practice Location Reason(s) For Visit Diagnoses Date Provider Providers Copied on Encounter Office/outpat ient Visit, [facility], [address] [place] [address] [address], [place], [place], [id number], tel:[phone] [facility] No Information 8-201 0 Joe Garrett. [address], [place], [address], [place]. tel:[phone] [facility], [address] [place] [address] [address], [place], [place], [id number], tel:[phone] [facility] No Information Sep- 8-201 0 Nusrat Nagy [address] , [address], [place], [address], [place]. tel:[phone] [facility], [address] [place] [address] [address], [place], [place], [id number], [place] tel:[phone] [facility] No Information May-1 9-201 0 Doisy Edward. [address] , [address], [place], [place], [facility], . tel:[phone] [facility], [address] [place] [address] [address], [place], [place], [id number], [place] tel:[phone] [facility] No Information May-0 5-201 0 Doisy Edward. [address] , [address], [place], [place], [facility], . tel:[phone] [facility], [address] [place] [address] [address], [place], [place], [id number], tel:[phone] [facility] No Information May-0 4-201 0 Doisy Edward. [address] , [address], [place], [place], [facility], [place]. tel:[phone] Referring Provider: Gaurav Lee OD, [address] [place], [address]. tel:[phone] [facility], [address] [place] [address] [address], [place], [place], [id number], [place] tel:[phone] [facility] No Information Apr-2 9-201 0 Doisy Edward. [address] , [address], [place], [facility], [place]. tel:[phone] Office/outpat ient Visit, [place] [facility], [address] [place] [address] [address], [place], [place], [id number], [place] tel:[phone] [facility] No Information Mar-2 5-201 0 Doisy Edward. [address] , [address], [place], [address], [place]. tel:[phone] Referring Provider: Gaurav Lee OD, [address] [facility], [place], [address]. tel:[phone] Family History Family Member Type Diagnosis Age At Onset No Information Payers Payer name Insurance type Covered constitution party ID Authoriza tion(s) Medicare [facility] [id number] Social History Type Description Quantity Date Captured Comments Sex Female Smoking Status No Information Chief Complaint And Reason For Visit No Information Reason For Referral Reason For Referral No Information History Of Present Illness Encounter Date Complaint History Of Prese nt Illness No Information Functional Status Date Functional Assessmen t No Information Instructions Date Instruction Additional Infor mation No Information Assessments Type Assessment Date No Information Patient Care Teams Name Effective Dates (start - stop) Status Members No Information
--- OUTSIDE RECORDS SUMMARY | 2024-06-20 10:10 | XMS_ITS | Clinical Summary ---
Author Organization [facility] Address [address] [place] [address] Care Team Providers Care Fundraising Manager Name Role Phone Unavailable Primary Care Provider Unavailabl e Social History Tobacco Use Types Packs/Day Years Used Date Smoking Tobacco: Never Assessed Comments Unknown Sex and Gender Information Value Date Recorded Sex Assigned at Not on file Legal Sex Female 10:36 PM CDT Gender Identity Not on file Sexual Orientation Not on file Plan of Treatment Health Maintenance Due Date Last Done Comments DEXA Bone Density 1940 Hepatitis C Virus (HCV) Screening 1940 TdaP Immunization 1940 Zoster Immunization (2 of 3) 03/22/2012 01/26/2012 Pneumococcal Immunization (50+ years) (2 of 2 - PCV) 11/11/2015 11/10/2014, 11/05/2014 Respiratory Syncytial Virus (RSV) Immunization (Adult) (1 - 1-dose 75+ series) 2017 Influenza Immunization (#1) 12/16/202312/15, 01/22/2018, 01/12/2017, Additional history exists SARS-COV-2 Immunization ( season) 2023 02/18/2021, 07/04/2020, 06/12/2020 Pneumococcal Immunization Combined Discontinued 11/10/2014, 11/05/2014 Hepatitis B Immunization Aged Out No longer eligible based on patient's age to complete this topic Meningococcal Immunization (ACWY) Aged Out No longer eligible based on patient's age to complete this topic Rotavirus Immunization Aged Out No lo nger eligible based on patient's age to complete this topic Insurance [employer] on file
--- OUTSIDE RECORDS SUMMARY | 2024-06-20 10:10 | XMS_ITS | Continuity of Care Document ---
Author Organization [facility] Address [address] [place] [address] Phone Care Team Providers Care Chief Radiology Name Role Phone Armando Camarillo MD Unavailable Unavailable Allergies, Adverse Reactions, Alerts Substance Reaction Status Criticality No Known Allergies Active No Inform ation Medications Medication Instructions Dosage Effective Dates (start - stop) Status Comments Percocet 5 mg-325 mg tablet take 1 - 2 by oral route every 4 - 6 hours as needed 1-2 - Active metformin 500 mg tablet take 1 tablet by oral route 2 times every day with morning and evening meals 500 MG - Active escitalopram 10 mg tablet take 1 tablet by oral route every day 10 MG - Active LEVOTHYROXINE SODIUM (unknown strength) take 1 tablet by oral route every day Not Available - Active losartan 100 mg tablet take 1 tablet by oral route every day 100 MG - Active Aspir-81 81 mg tablet,delayed release take 1 tablet by oral route every day - Active FISH OIL (unknown strength) Not Available - Active Procedures Procedure Date X-ray exam shoulder minimum 2 views Office/outpatient visit,est, low 2013 Pain Assessmnt Pos. F/u Plan Documented X-ray exam shoulder minimum 2 views Global/Postop followup visit Pain Assessmnt Pos. F/u Plan Documented X-ray exam shoulder minimum 2 views Office/outpatient visit,new, mod 2013 Post Fracture Care Communication Jose Juan moore Advance Directives Directive Yes / No Effective Date File Name No Information Encounters Encounter Description Practice Location Reason(s) For Visit Diagnoses Date Provider Providers Copied on Encounter [facility], [address] [place] [address], [id number], [place] tel:[phone] No Information 4 Marquise Roberts. [address], [id number] , [place]. tel:[phone] [facility], [address], [id number], [place] tel:[phone] [facility] FX SURG NCK HUMERUS-CLOS 4 Marquise Roberts. [facility] [address], [id number] , [place]. tel:[phone] Referring Provider: Saeid Nation, [address] [place] [address], [address]. tel:[phone] [facility], [address], [id number], [place] tel:[phone] [facility] FX SURG NCK HUMERUS-CLOS 4 Marquise Roberts. [address] [place] [address], [id number] , [place]. tel:[phone] Referring Provider: Saeid Nation, [address] [place] [address], [place], [address]. tel:[phone] Office/outpat ient visit,[facility], [facility], [address], [id number], [place] tel:[phone] [facility] JOINT PAIN-SHLDERFX SURG NCK HUMERUS-CLOS 4 Marquise Roberts. [address] [place] [address], [id number] , [place]. tel:[phone] Referring Provider: Saeid Nation, [address] [place] [address], [address]. tel:[phone] Family History Family Member Type Diagnosis Age At Onset Problem (finding) Family history of Menta l illness Father Problem (finding) hypertension Problem (finding) Family history of Diabe neymar mellitus Mother Problem (finding) malignant neoplasm of p sobeida Father Problem (finding) stroke Payers Payer name Insurance type Covered green party ID Authoriza tion(s) Medicare [place] Part B [id number] Social History Type Description Quantity Date Captured Comments Sex Female Smoking Status No Information Chief Complaint And Reason For Visit No Information Reason For Referral Reason For Referral No Information Plan Of Treatment Date Type Action Status Referral Ordered: X-ray exam shoulder minimum 2 views LT ordered History Of Present Illness Encounter Date Complaint History Of Prese nt Illness No Information Functional Status Date Functional Assessmen t No Information Instructions Date Instruction Additional Infor mation No Information Assessments Type Assessment Date No Information Patient Care Teams Name Effective Dates (start - stop) Status Members No Information
[2024-06-20 10:29] LABS: Hemoglobin A1C 7.3 % (<5.7)
[2024-06-20 10:32] LABS: Alanine Aminotransferase 20 U/L (6-35); Albumin Level 4.4 g/dL (3.5-5.1); Alkaline Phosphatase 49 U/L (38-126); Anion Gap 8 mmol/L (4-12); Aspartate Amino Transferase 26 U/L (14-36); Bilirubin,Total 0.7 mg/dL (0.2-1.3); Blood Urea Nitrogen 13 mg/dL (7-17); Carbon Dioxide 28 mmol/L (22-30); Chloride 97 mmol/L (98-107); Cholesterol 200 mg/dL (0-200); Estimated Glomerular Filt Rate > 60; Glucose 158 mg/dL (65-110); HDL Direct 80 mg/dL; Potassium 4.5 mmol/L (3.4-5.0); Sodium 133 mmol/L (137-145); Triglycerides 76 mg/dL (<150)
[2024-06-20 10:50] LABS: LDL Cholesterol Direct 84 mg/dL
== END 2024-06-20 09:38 | disposition home or self-care (01) ==
LOC: ANHLAB 09:38
PROVIDERS: PCP Internal Medicine; Visit Provider Internal Medicine
DX: E11.9 Type 2 diabetes mellitus without complications (principal); I10 Essential (primary) hypertension; E78.2 Mixed hyperlipidemia
CPT/HCPCS: 36415; 80053; 80061; 83036; 85025

== ENCOUNTER 2024-09-07 11:24 | Emergency (ER) | payer MEDICARE, SELFPAY ==
--- OUTSIDE RECORDS SUMMARY | 2024-09-07 11:25 | XMS_ITS | Clinical Summary ---
[facility] Address [address] [place] [address] Care Team Providers Care Cath Lab Technologist Name Role Phone Min Logan MD Primary Care Provider [phone] Allergies Active Allergy Reactions Criticality Noted Date [...] 1 tablet (88 mcg total) by mouth early learning teacher before breakfast 90 tablet 1 Active calcium [...] 02/18/2024 Assessment & Plan (02/18/2024 10:09 AM ONCOLOGY REP): I suspect her persistent cough is likely [...] 02/18/2024 Assessment & Plan (02/18/2024 10:08 AM ONCOLOGY REP): I reassured her that her vocal cords look okay and I recommended no intervention. She understands. Impacted cerumen of right ear 02/18/2024 Assessment & Plan (02/18/2024 9:59 AM ONCOLOGY REP): This ear was cleaned without difficulty. Needs no further intervention. Thoracic spine pain 05/08/2023 Assessment & Plan (05/08/2023 12:14 PM ONCOLOGY REP): Ms. Domínguez has a primary complaint of [...] months Assessment & Plan (03/27/2022 1:42 PM ONCOLOGY REP): Treatment options risks and alternatives discussed. Recommended [...] months. Assessment & Plan (06/13/2020 12:54 PM ONCOLOGY REP): Images from the original note were not [...] diet Assessment & Plan (03/27/2022 1:42 PM ONCOLOGY REP): Chronic, well controlled Continue losartan Low-salt diet Assessment & Plan (08/23/2021 10:49 PM CDT): Chronic, stable. Continue losartan. DASH diet. Assessment & Plan (12/31/2020 3:48 PM CDT): Stable on losartan. Low-salt diet and exercise as tolerated Assessment & Plan (06/13/2020 12:04 PM ONCOLOGY REP): Stable on losartan. Hyperlipidemia associated with type 2 diabetes margaret schwarz 06/13/2020 Assessment & Plan (11/17/2022 12:16 PM CDT): LDL 107, goal less than 100. Continue Zetia Low cholesterol diet Assessment & Plan (03/27/2022 1:40 PM ONCOLOGY REP): Continue Nexlizet. Low cholesterol diet Will request previous labs. Assessment & Plan (08/23/2021 10:51 PM CDT): LDL 107. Continue Nexlizet. Low cholesterol/low-fat diet Assessment & Plan (12/31/2020 3:49 PM CDT): Stable. Continue rosuvastatin 20 mg HS. Assessment & Plan (06/13/2020 12:04 PM ONCOLOGY REP): LDL at goal. Continue rosuvastatin 20 mg HS. 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 This does not seem to be symptomatic at this time. Assessment & Plan (04/18/2022 2:49 PM ONCOLOGY REP): Ms. Domínguez has a known pseudoarthrosis at [...] cramps. Assessment & Plan (06/13/2020 12:39 PM ONCOLOGY REP): Management of osteopenia as above. Acquired hypothyroidism 06/10/2020 Assessment & Plan (11/17/2022 12:15 PM CDT): Clinically euthyroid Continue levothyroxine 88 mcg daily TSH today TSH goal 0.3-4.2. TSH annually if at goal. Assessment & Plan (03/27/2022 1:42 PM ONCOLOGY REP): Clinically euthyroid Continue levothyroxine 88 mcg daily. TSH annually Assessment & Plan (08/23/2021 10:49 PM CDT): Clinically and biochemically euthyroid Continue levothyroxine 88 mcg daily. TSH Q 6-12 months. TSH was 0.3-4.2. Assessment & Plan (12/31/2020 3:53 PM CDT): Continue levothyroxine 88 mcg daily. TSH today TSH goal 0.4-4.5. Assessment & Plan (06/13/2020 12:03 PM ONCOLOGY REP): TSH was 0.0 27 in March 2020. TSH goal 0.45-4.5. Avoid TSH suppression due to risk of worsening BMD. Continue levothyroxine 100 mcg daily. Will check TSH. Dose adjustment based on above. 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 Continue metformin 1000 mg b.i.d. and Farxiga 10 mg daily Consistent carb diet A1c today. Annual dilated eye exam Assessment & Plan (03/27/2022 1:41 PM ONCOLOGY REP): Chronic, stable Continue Xigduo mg with breakfast [...] tolerated. Assessment & Plan (06/13/2020 12:04 PM ONCOLOGY REP): Well controlled. Hemoglobin A1c 6.4%. Continue Xigduo [...] patient. Assessment & Plan (06/12/2019 1:22 PM ONCOLOGY REP): Ms. Domínguez is status post L3-L5 decompression [...] Forteo injections. Patient is concerned about the [id number] cost but is aware of some financial [...] point. Assessment & Plan (06/12/2019 1:23 PM ONCOLOGY REP): Ms. Domínguez is doing well in regards [...] (11/26/2018): Added automatically from request for surgery [id number] Lumbar stenosis with neurogenic claudication 9 06/12/2019 [...] this to occur at our earliest convenience. Encounters Date Type Department Care Team Description 07/14/2024 Telephone [facility] [address] [place] [address] [address] [place] [address] Mansi Victor from Last 3 Months Surgical History Surgery Date Site/Laterality Comments CATARACT EXTRACTION 2009 & 2014 Bilateral SECTION 04/16/1974 - 04/15/1975 LUMBAR FUSION 04/16/2013 - 04/15/2014 L4-5 PSF (Cipriano) TUBAL LIGATION 04/16/1981 - 04/15/1982 DILATION AND CURETTAGE OF UTERUS 1967, 1968 &1970 LUMBAR FUSION 11/14/2018 - 12/14/2018 S/P L3-5 [...] on file Legal Sex Female 2:29 AM ONCOLOGY REP Gender Identity Not on file Sexual Orientation Not on file Occupation Industry Job Start Date Job End Date Retired Not on file Not on file Not on file Obstetrics History Last Filed Vital Signs Vital Sign Reading Time Taken Comments Blood Pressure 110/60 11/17/2022 10:48 AM CDT Pulse 72 11/17/2022 10:48 AM CDT Temperature 36.3 C (97.3 F) 03/27/2022 9:53 AM ONCOLOGY REP Respiratory Rate 18 02/13/2024 10:40 AM CDT Oxygen Saturation 97% 12/14/2018 12:31 PM CDT Inhaled Oxygen Concentration - - Weight 66.7 kg (147 lb) 02/13/2024 10:40 AM CDT Height 165.1 cm (5' 5) 02/13/2024 10:40 AM CDT Body Mass Index [...] 03/16, 12/31/2020, Additional history exists Influenza Vaccine (Season Ended) 2024 01/22/2018, 01/12/2017, 02/15/2015, Additional history exists Medical Devices Implanted Type Area Special Events Fundraiser Device Identifier Shelf Expiration Date Model / Serial / Lot [employer] [id number] Inqu Paste Mix Plus [employer] Crewman 10cc Bone Graft Hyaluronic Acid Poly - [id number] Implanted:Qty: 1 on 12/13/2018 by Jose Portillo MD at [facility] N/A: Spine Lumbar [employer] 08/01/2020 [id number] / / [id number] Core Link [id number] Everton 6.5mm 40mm Spine Pedicle Screw Bone 5500 Series - [id number] Implanted:Qty: 2 on 12/13/2018 by Jose Portillo MD at [facility] N/A: Spine Lumbar Core Link [id number] / / Core Link [id number] Everton 7mm 40mm Spine Pedicle Screw Bone Nonsterile 5500 Series - [id number] Implanted:Qty: 4 on 12/13/2018 by Jose Portillo MD at [facility] N/A: Spine Lumbar Core Link [id number] / / Core Link [id number] Everton Screw Set 5500 Series - [id number] Implanted:Qty: 6 on 12/13/2018 by Jose Portillo MD at [facility] N/A: Spine Lumbar Core Link [id number] / / Core Link [id number] Everton 5.5mm 65mm Line Prebent Johnie Spinal Nonsterile 5500 Series - [id number] Implanted:Qty: 1 on 12/13/2018 by Jose Portillo MD at [facility] N/A: Spine Lumbar Core Link [id number] / / Procedures Procedure Name Priority Date/Time [...] AM CDT) eGFR 66 mL/min/1. 73 m2 [facility] Comment: Interpretive Data Reference Interval Normal >/= [...] MD LAB BLOOD ORDERABLES F inal Result [facility] [address] [place] [address] * (ABNORMAL) Hemoglobin A1c (11/17/2022 11:34 AM CDT) Hgb A1C 7.5(H) 4.0 - 5.6 % [facility] Estimated Average Glucose 169 mg/dL [facility] Comment: The ADA recommends reporting an estimated Average Glucose (eAG) with all Hemoglobin A1c results using the equation derived from a study of 507 normal and diabetic adults. Minority populations were underrepresented and children were not included. (Diabetes Care 31:0152-2639, 2008). The eAG is not equivalent to a fasting glucose. Blood 11/17/2022 11:3 4 AM CDT 11/17/2022 2:52 PM CDT us Josué Ceron MD LAB BLOOD ORDERABLES F inal Result [facility] [address] [place] [address] * (ABNORMAL) Lipid panel (12/27/2021 10:00 AM CDT) SCRIBED Cholesterol, Total 202(A) 0 - 200 EXTERNAL LAB SCRIBED HDL 70 50 - 100 EXTERNAL LAB SCRIBED LDL 89 0 - 120 EXTERNAL LAB SCRIBED Triglycerides 84 0 - 200 EXTERNAL LAB Blood 12/27/2021 10:0 0 AM CDT us Generic External Data Provider LAB BLOOD ORDERAB LES Final Result Performing Organization Address [facility] Co de Phone Number EXTERNAL LAB * Dexa Axial Skeleton Bone Density 1 or 2 Site (12/08/2019) Anatomical Region Laterality Modality Body N/A Radiographic Yara ging Min [place] MD IMG DXA PROCEDURES Final Resu lt from Last 3 Months or Most Recently Relevant to Health Maintenance Insurance [facility] MEDICARE AD[facility]ANT[facility] Address: [address] [address] [place] [address] [facility] MDCR HMO REF [facility] Address: [address] [place] [address] [facility] MEDICARE AD[facility]ANTAGE [facility] MED[facility] Address: [address] [address] [place] [address] Advance Directives For more information, please contact: [phone] * Full Code (Latest Code Status on File) Date Activated Date Inactivated Comments 12/13/2018 1:49 PM 12/14/2018 7:30 PM Care Teams Cath Lab Technologist Relationship Specialty Start Date End Date Min [place] MD [address] [place] [address] INTERNAL MEDICINE [place] [phone] (Work) PCP - General 11/30/11
--- OUTSIDE RECORDS SUMMARY | 2024-09-07 11:25 | XMS_ITS | Referral Summary ---
Author Organization [facility] C Address [address] [place] [address] Care Team Providers Care Ore Roaster Name Role Phone Min [place] MD Primary Care Provider [phone] Encounters Date Type Department Care Team Description 07/14/2024 Telephone [place] [facility] [address] [place] [address] Mansi Victor from Last 3 Months Allergies Active Allergy Reactions Criticality Noted Date [...] 1 tablet (88 mcg total) by mouth jet blade polisher before breakfast 90 tablet 1 Active calcium [...] 02/18/2024 Assessment & Plan (02/18/2024 10:09 AM PREPAROLE COUNSELING AIDE): I suspect her persistent cough is likely [...] 02/18/2024 Assessment & Plan (02/18/2024 10:08 AM PREPAROLE COUNSELING AIDE): I reassured her that her vocal cords look okay and I recommended no intervention. She understands. Impacted cerumen of right ear 02/18/2024 Assessment & Plan (02/18/2024 9:59 AM PREPAROLE COUNSELING AIDE): This ear was cleaned without difficulty. Needs no further intervention. Thoracic spine pain 05/08/2023 Assessment & Plan (05/08/2023 12:14 PM PREPAROLE COUNSELING AIDE): Ms. Domínguez has a primary complaint of [...] months Assessment & Plan (03/27/2022 1:42 PM PREPAROLE COUNSELING AIDE): Treatment options risks and alternatives discussed. Recommended [...] months. Assessment & Plan (06/13/2020 12:54 PM PREPAROLE COUNSELING AIDE): Images from the original note were not [...] diet Assessment & Plan (03/27/2022 1:42 PM PREPAROLE COUNSELING AIDE): Chronic, well controlled Continue losartan Low-salt diet Assessment & Plan (08/23/2021 10:49 PM CDT): Chronic, stable. Continue losartan. DASH diet. Assessment & Plan (12/31/2020 3:48 PM CDT): Stable on losartan. Low-salt diet and exercise as tolerated Assessment & Plan (06/13/2020 12:04 PM PREPAROLE COUNSELING AIDE): Stable on losartan. Hyperlipidemia associated with type 2 diabetes margaret schwarz 06/13/2020 Assessment & Plan (11/17/2022 12:16 PM CDT): LDL 107, goal less than 100. Continue Zetia Low cholesterol diet Assessment & Plan (03/27/2022 1:40 PM PREPAROLE COUNSELING AIDE): Continue Nexlizet. Low cholesterol diet Will request previous labs. Assessment & Plan (08/23/2021 10:51 PM CDT): LDL 107. Continue Nexlizet. Low cholesterol/low-fat diet Assessment & Plan (12/31/2020 3:49 PM CDT): Stable. Continue rosuvastatin 20 mg HS. Assessment & Plan (06/13/2020 12:04 PM PREPAROLE COUNSELING AIDE): LDL at goal. Continue rosuvastatin 20 mg HS. 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 This does not seem to be symptomatic at this time. Assessment & Plan (04/18/2022 2:49 PM PREPAROLE COUNSELING AIDE): Ms. Domínguez has a known pseudoarthrosis at [...] cramps. Assessment & Plan (06/13/2020 12:39 PM PREPAROLE COUNSELING AIDE): Management of osteopenia as above. Acquired hypothyroidism 06/10/2020 Assessment & Plan (11/17/2022 12:15 PM CDT): Clinically euthyroid Continue levothyroxine 88 mcg daily TSH today TSH goal 0.3-4.2. TSH annually if at goal. Assessment & Plan (03/27/2022 1:42 PM PREPAROLE COUNSELING AIDE): Clinically euthyroid Continue levothyroxine 88 mcg daily. TSH annually Assessment & Plan (08/23/2021 10:49 PM CDT): Clinically and biochemically euthyroid Continue levothyroxine 88 mcg daily. TSH Q 6-12 months. TSH was 0.3-4.2. Assessment & Plan (12/31/2020 3:53 PM CDT): Continue levothyroxine 88 mcg daily. TSH today TSH goal 0.4-4.5. Assessment & Plan (06/13/2020 12:03 PM PREPAROLE COUNSELING AIDE): TSH was 0.0 27 in March 2020. TSH goal 0.45-4.5. Avoid TSH suppression due to risk of worsening BMD. Continue levothyroxine 100 mcg daily. Will check TSH. Dose adjustment based on above. Type 2 diabetes mellitus wit h circulatory disorder, with long-term current use of insulin ([facility]) 06/10/2020 Assessment & Plan (11/17/2022 12:16 PM CDT): Chronic, stable. Continue metformin 1000 mg b.i.d. and Farxiga 10 mg daily Consistent carb diet A1c today. Annual dilated eye exam Assessment & Plan (03/27/2022 1:41 PM PREPAROLE COUNSELING AIDE): Chronic, stable Continue Xigduo mg with breakfast [...] tolerated. Assessment & Plan (06/13/2020 12:04 PM PREPAROLE COUNSELING AIDE): Well controlled. Hemoglobin A1c 6.4%. Continue Xigduo [...] patient. Assessment & Plan (06/12/2019 1:22 PM PREPAROLE COUNSELING AIDE): Ms. Domínguez is status post L3-L5 decompression [...] Forteo injections. Patient is concerned about the rel-zp-emqjyl cost but is aware of some financial [...] point. Assessment & Plan (06/12/2019 1:23 PM PREPAROLE COUNSELING AIDE): Ms. Domínguez is doing well in regards [...] (11/26/2018): Added automatically from request for surgery [id number] Lumbar stenosis with neurogenic claudication 9 06/12/2019 [...] on file Legal Sex Female 2:29 AM PREPAROLE COUNSELING AIDE Gender Identity Not on file Sexual Orientation Not on file Occupation Industry Job Start Date Job End Date Retired Not on file Not on file Not on file Last Filed Vital Signs Vital Sign Reading Time Taken Comments Blood Pressure 110/60 11/17/2022 10:48 AM CDT Pulse 72 11/17/2022 10:48 AM CDT Temperature 36.3 C (97.3 F) 03/27/2022 9:53 AM PREPAROLE COUNSELING AIDE Respiratory Rate 18 02/13/2024 10:40 AM CDT Oxygen Saturation 97% 12/14/2018 12:31 PM CDT Inhaled Oxygen Concentration - - Weight 66.7 kg (147 lb) 02/13/2024 10:40 AM CDT Height 165.1 cm (5' 5) 02/13/2024 10:40 AM CDT Body Mass Index 24.46 02/13/2024 10:40 AM CDT Plan of Treatment Not on file Medical Devices Implanted Type Area Facing Baster Jumpbasting Device Identifier Shelf Expiration Date Model / Serial / Lot [employer] [id number] Inqu Paste Mix Plus Front Office Coordinator 10cc Bone Graft Hyaluronic Acid Poly - [id number] Implanted:Qty: 1 on 12/13/2018 by Jose Portillo MD at [facility] N/A: Spine Lumbar [employer] 08/01/2020 [id number] / / [id number] Core Link [id number] Kirby 6.5mm 40mm Spine Pedicle Screw Bone 5500 Series - [id number] Implanted:Qty: 2 on 12/13/2018 by Jose Portillo MD at [facility] N/A: Spine Lumbar Core Link [id number] / / Core Link [id number] Kirby 7mm 40mm Spine Pedicle Screw Bone Nonsterile 5500 Series - [id number] Implanted:Qty: 4 on 12/13/2018 by Jose Portillo MD at [facility] N/A: Spine Lumbar Core Link [id number] / / Core Link [id number] Kirby Screw Set 5500 Series - [id number] Implanted:Qty: 6 on 12/13/2018 by Jose Portillo MD at [facility] N/A: Spine Lumbar Core Link [id number] / / Core Link [id number] Kirby 5.5mm 65mm Line Prebent Johnie Spinal Nonsterile 5500 Series - [id number] Implanted:Qty: 1 on 12/13/2018 by Jose Portillo MD at [facility] N/A: Spine Lumbar Core Link [id number] / / Procedures Procedure Name Priority Date/Time [...] AM CDT) eGFR 66 mL/min/1. 73 m2 [facility] Comment: Interpretive Data Reference Interval Normal [...] MD LAB BLOOD ORDERABLES F inal Result [facility] [address] [place] [address] * (ABNORMAL) Hemoglobin A1c (11/17/2022 11:34 AM CDT) Hgb A1C 7.5(H) 4.0 - 5.6 % [facility] Estimated Average Glucose 169 mg/dL [facility] Comment: The ADA recommends reporting an estimated Average Glucose (eAG) with all Hemoglobin A1c results using the equation derived from a study of 507 normal and diabetic adults. Minority populations were underrepresented and children were not included. (Diabetes Care 31:4150-5834, 2008). The eAG is not equivalent to a fasting glucose. Blood 11/17/2022 11:3 4 AM CDT 11/17/2022 2:52 PM CDT us Josué Ceron MD LAB BLOOD ORDERABLES F inal Result [facility] [address] [place] [address] * (ABNORMAL) Lipid panel (12/27/2021 10:00 AM [...] Most Recently Relevant to Health Maintenance Insurance [facility] MEDICARE ADVANT[facility] Address: [address] [address] [facility] MDCR HMO REF [facility] Address: [address] [address] [place] [address] [facility] MEDICARE [facility]ANT[facility] Address: [address] [address] [place] [address] Advance Directives For more information, please contact: [phone] * Full Code (Latest Code Status on File) Date Activated Date Inactivated Comments 12/13/2018 1:49 PM 12/14/2018 7:30 PM Care Teams Ore Roaster Relationship Specialty Start Date End Date Min [place] MD [address] [facility] [address] [place] [address] PCP - General 11/30/11
--- OUTSIDE RECORDS SUMMARY | 2024-09-07 11:25 | XMS_ITS | Continuity of Care Document ---
Author Organization [facility] Address [address] [place] [address] [place] [address] Phone Care Team Providers Care Stem Teacher Name Role Phone Gerry Diaz Unavailable Unavailable Procedures Procedure Date Office/outpatient Visit, Est Dilated Retinal Exam W Interpretation Se Post-op Follow-up Visit Post-op Follow-up Visit Post-op Follow-up Visit Remove Cataract, Insert Lens,Comanaged M PreOp Assessment Performed No Charge Screening Visit IOLMaster Office/outpatient Visit, [facility] Advance Directives Directive Yes / No Effective Date File Name No Information Encounters Encounter Description Practice Location Reason(s) For Visit Diagnoses Date Provider Providers Copied on Encounter Office/outpat ient Visit, Est [facility], [address] [place] [address] [address], [place], [place], [id number], tel:[phone] [facility] No Information 8-201 0 Joe Garrett. [address] , [address], [place], [address], [place]. tel:[phone] [facility], [address] [place] [address] [address], [place], [place], [id number], tel:[phone] [facility] No Information Sep- 8-201 0 Nusrat Nagy [address] , [address], [place], [address], [place]. tel:[phone] [facility], [address] [place] [address] [address], [place], [place], [id number], [place] tel:[phone] [facility] No Information May-1 9-201 0 Doisy Edward. [address] , [address], [place], [place], [facility], . tel:[phone] [facility], [address] [place] [address] [address], [place], [place], [id number], [place] tel:[phone] [facility] No Information May-0 5-201 0 Doisy Edward. [address] , [address], [place], [place], [facility], . tel:[phone] [facility], [address] [place] [address] [address], [place], [place], [id number], tel:[phone] [facility] No Information May-0 4-201 0 Doisy Edward. [address] , [address], [place], [place], [facility], [place]. tel:[phone] Referring Provider: Gaurav Lee OD, [address] [place], [address]. tel:[phone] [facility], [address] [place] [address] [address], [place], [place], [id number], [place] tel:[phone] [facility] No Information Apr-2 9-201 0 Doisy Edward. [address] , [address], [place], [facility], [place]. tel:[phone] Office/outpat ient Visit, [facility], [address] [place] [address] [address], [place], [place], [id number], [place] tel:[phone] [facility] No Information Mar-2 5-201 0 Doisy Edward. [address] , [address], [place], [address], [place]. tel:[phone] Referring Provider: Gaurav Lee OD, [address] [facility], [place], [address]. tel:[phone] Family History Family Member Type Diagnosis Age At Onset No Information Payers Payer name Insurance type Covered alliance party ID Authoriza tion(s) Medicare [facility] [id number] Social History Type Description Quantity Date Captured [...]
--- OUTSIDE RECORDS SUMMARY | 2024-09-07 11:25 | XMS_ITS | Continuity of Care Document ---
Author Organization [facility] Address [address] [place] [address] Phone Care Team Providers Care Featheredger And Reducer Machine Name Role Phone Armando Camarillo MD Unavailable [...] Provider Providers Copied on Encounter [facility], [address] [place] [address], [id number], [place] tel:[phone] No Information 4 Marquise Roberts. [address], [id number] , [place]. tel:[phone] Office/outpat ient visit,[facility], low [facility], [address], [id number], [place] tel:[phone] [facility] FX SURG NCK HUMERUS-CLOS 4 Marquise Roberts. [facility] [address], [id number] , [place]. tel:[phone] Referring Provider: Saeid Nation, [address] [place] [address], [address]. tel:[phone] [facility] [facility], [address], [id number], [place] tel:[phone] [facility] FX SURG NCK HUMERUS-CLOS 4 Marquise Roberts. [address] [place] [address], [id number] , [place]. tel:[phone] Referring Provider: Saeid Nation, [address] [place] [address], [place], [address]. tel:[phone] Office/outpat ient visit,[facility], [facility], [address], [id number], [place] tel:[phone] [facility] JOINT PAIN-SHLDERFX SURG NCK HUMERUS-CLOS 4 Marquise Roberts. [address] [place] [address], [id number] , [place]. tel:[phone] Referring Provider: Saeid Nation, [address] [place] [address], [address]. tel:[phone] Family History Family Member Type Diagnosis Age At Onset Problem (finding) Family history of Menta l illness Father Problem (finding) hypertension Problem (finding) Family history of Diabe neymar mellitus Mother Problem (finding) malignant neoplasm of p sobeida Father Problem (finding) stroke Payers Payer name Insurance type Covered green party ID Authoriza tion(s) [place] Part B [id number] Social History Type Description Quantity Date Captured [...]
--- OUTSIDE RECORDS SUMMARY | 2024-09-07 11:25 | XMS_ITS | Clinical Summary ---
Author Organization [facility] Address [address] [place] [address] Care Team Providers Care Cigar Binder Name Role Phone Unavailable Primary Care Provider [...]
--- OUTSIDE RECORDS SUMMARY | 2024-09-07 11:28 | XMS_ITS | Continuity of Care Document ---
Author Organization [facility] Address [address] [place] [address] [place] [address] Phone Care Team Providers Care Linux Server Administrator Name Role Phone Gerry Diaz Unavailable Unavailable Procedures Procedure Date Office/outpatient Visit, Est Dilated Retinal Exam W Interpretation Se Post-op Follow-up Visit Post-op Follow-up Visit Post-op Follow-up Visit Remove Cataract, Insert Lens,Comanaged M PreOp Assessment Performed No Charge Screening Visit IOLMaster Office/outpatient Visit, [facility] Advance Directives Directive Yes / No Effective Date File Name No Information Encounters Encounter Description Practice Location Reason(s) For Visit Diagnoses Date Provider Providers Copied on Encounter Office/outpat ient Visit, Est [facility], [address] [place] [address] [address], [place], [place], [id number], tel:[phone] [facility] No Information 8-201 0 Joe Garrett. [address], [place], [address], [place]. tel:[phone] [facility], [address] [place] [address] [address], [place], [place], [id number], tel:[phone] [facility] No Information Sep- 8-201 0 Nusrat Nagy [address] , [address], [place], [address], [place]. tel:[phone] [facility], [address] [place] [address] [address], [place], [place], [id number], [place] tel:[phone] [facility] No Information May-1 9-201 0 Doisy Edward. [address], [place], [facility], . tel:[phone] [facility], [address] [place] [address] [address], [place], [place], [id number], [place] tel:[phone] [facility] No Information May-0 5-201 0 Doisy Edward. [address], [place], [facility], . tel:[phone] [facility], [address] [place] [address] [address], [place], [place], [id number], tel:[phone] [facility] No Information May-0 4-201 0 Doisy Edward. [address], [place], [facility], [place]. tel:[phone] Referring Provider: Gaurav Lee OD, [address] [place], [address]. tel:[phone] [facility], [address] [place] [address] [address], [place], [place], [id number], [place] tel:[phone] [facility] No Information Apr-2 9-201 0 Doisy Edward. [address], [place], [facility], [place]. tel:[phone] Office/outpat ient Visit, New [facility], [address] [place] [address] [address], [place], [place], [id number], [place] tel:[phone] [facility] No Information Mar-2 5-201 0 Doisy Edward. [address] , [address], [place], [address], [place]. tel:[phone] Referring Provider: Gaurav Lee OD, [address] [facility], [place], [address]. tel:[phone] Family History Family Member Type Diagnosis Age At Onset No Information Payers Payer name Insurance type Covered libertarian ID Authoriza tion(s) Medicare [facility] [id number] Social History Type Description Quantity Date Captured [...]
--- OUTSIDE RECORDS SUMMARY | 2024-09-07 11:28 | XMS_ITS | Continuity of Care Document ---
Author Organization [facility] Address [address] [place] [address] Phone Care Team Providers Care Automotive Collision Repair Instructor Name Role Phone Armando Camarillo MD Unavailable [...] Provider Providers Copied on Encounter [facility], [address] [place] [address], [id number], [place] tel:[phone] No Information 4 Marquise Roberts. [address], [id number] , [place]. tel:[phone] Office/outpat ient visit,[facility], low [facility], [address], [id number], [place] tel:[phone] [facility] FX SURG NCK HUMERUS-CLOS 4 Marquise Roberts. [facility] [address], [id number] , [place]. tel:[phone] Referring Provider: Saeid Nation, [address] [place] [address], [address]. tel:[phone] [facility], [address], [id number], [place] tel:[phone] [facility] [employer] [facility] FX SURG NCK HUMERUS-CLOS 4 Marquise Roberts. [address] [place] [address], [id number] , [place]. tel:[phone] Referring Provider: Saeid Nation, [address] [place] [address], [place], [address]. tel:[phone] Office/outpat ient visit,[facility], [facility], [address], [id number], [place] tel:[phone] [facility] JOINT PAIN-SHLDERFX SURG NCK HUMERUS-CLOS 4 Marquise Roberts. [address] [place] [address], [id number] , [place]. tel:[phone] Referring Provider: Saeid Nation, [address] [place] [address], [address]. tel:[phone] Family History Family Member Type Diagnosis Age At Onset Problem (finding) Family history of Menta l illness Father Problem (finding) hypertension Problem (finding) Family history of Diabe neymar mellitus Mother Problem (finding) malignant neoplasm of p sobeida Father Problem (finding) stroke Payers Payer name Insurance type Covered constitution party ID Authoriza tion(s) [place] Part [place] [id number] Social History Type Description Quantity Date Captured [...]
[2024-09-07 11:44] VITALS: BP 131/52; PULSE 67; RESP 18; TEMP 36.5; O2SAT 100
--- NOTE | 2024-09-07 15:02 | ED_ITS ---
HPI - Ear Problem General Chief complaint: Ear Stated complaint: Right Ear Pain Time Seen by Provider: 09/07/24 11:45 Source: patient and RN notes reviewed Mode of arrival: ambulatory Limitations: no limitations History of Present Illness HPI Narrative: 84-year-old female presents Express Care complaining of right ear pain since yesterday. Patient reports pain to her right outer ear feels like her right ear needs to pop. Patient said symptoms started yesterday. Patient denies any hearing problems, dizziness, blurry vision, headaches, or any other wrap upper respiratory symptoms. Patient denies recent swimming. Related Data Home Medications ?Medication ?Instructions ?Recorded ?Confirmed ?Last Taken ?Type [id number] 8 mg-folic 400 1 tablet PO DAILY 05/01/19 06/26/24 07/27/23 History mcg-K 50 mcg-lutein 300 mcg tablet (Centrum Silver Women) omega-3 fatty acids 1,000 mg 2,000 mg PO BID 05/01/19 06/26/24 07/27/23 History capsule (Fish Oil Concentrate) Calcium Chews 650 mg BYMOUTH DAILY 08/08/21 06/26/24 07/27/23 History denosumab 60 mg/mL subcutaneous 60 mg subcut [id number] 02/15/23 06/26/24 Unknown History syringe (Prolia) trospium 20 mg tablet 20 mg PO BID 06/26/24 06/26/24 Unknown History Allergies Allergy/AdvReac Type Severity Reaction Status Date / Time tizanidine AdvReac Intermediate Confusion Verified 09/07/24 11:41 Review of Systems Review of Systems: CONSTITUTIONAL: Denies fever, chills, or sweats. EYES: Denies visual changes, redness, or discharge. ENT: Denies rhinorrhea, congestion, sore throat. Positive for otalgia. CARDIOVASCULAR: Denies chest pain, palpitations, dizziness, lightheadedness, syncope, or edema. RESPIRATORY: Denies cough or dyspnea. GASTROINTESTINAL: Denies abdominal pain, nausea, vomiting, or diarrhea. GENITOURINARY: Denies dysuria or hematuria. SKIN: Denies rash or itching. MUSCULOSKELETAL: Denies back pain, joint pain, or myalgia. NEUROLOGIC: Denies headache, numbness, or weakness. PSYCHIATRIC: Denies anxiety or depression. All other systems reviewed are negative, except as documented in HPI. [facility] Past Medical History Medical History Chronic cough Neutropenia Chest discomfort Hypersomnolence Memory impairment Follow up Tremor Osteoporosis Osteoarthritis of thoracic spine with radiculopathy Body mass index [BMI] 25.0-25.9, adult (10/31/16) Thin nails Skin lesion of cheek Hair loss [place] (dyspnea on exertion) Chest wall pain BMI 27.0-27.9,adult Statin intolerance BMI 22.0-22.9, adult Itchy skin Fatigue Dark stools Diarrhea Macular degeneration Dry eye Hx of colonic polyps Muscular aches Elevated homocysteine Vaginal delivery x1 Missed x3 Postmenopausal bleeding Hypertension MDD (major depressive disorder) Skin mole Abnormal vaginal bleeding in postmenopausal patient Microscopic hematuria Unintentional weight loss Colon cancer screening Personal history of covid-19 Chronic SI joint pain Degenerative joint disease (DJD) of hip Seasonal allergies Arthritis Anxiety Depression GERD (gastroesophageal reflux disease) Vertigo Vision abnormalities BMI 25.0-25.9,adult Mixed hyperlipidemia Bilateral hip pain Restrictive lung disease Hearing loss Abnormal finding of blood chemistry, unspecified Hypothyroidism (acquired) Benign essential hypertension Chronic low back pain Lumbar spondylosis Pedal edema Bilateral flank pain Abdominal bloating Surgical History Surgical History History of bilateral tubal ligation History of eye surgery cataract removal both eyes H/O dilation and curettage History of section x1 History of back surgery L 3-4-5 fusion Family History Family History Mother Hypertension Family history of malignant neoplasm Father Hypertension Family history of Alzheimer's disease Family history of chronic obstructive pulmonary disease Family history of dementia Sibling Family history of diabetes mellitus in first degree relative Social History Social History Smoking status: Never smoker Second hand tobacco smoke exposure: No Alcohol intake: never Alcohol use details: wine occasionally Substance use: never Substance use type: does not use Lack of Transportation: No Lack of Food: Never True Current Housing: I Have Housing Concerned About Future Housing: No Difficulty Paying Gas/Electric Bills: No Difficulty Paying for Meds: No Currently Unemployed: No Education: Trade/Vocational Certificate Difficulty w/ Childcare or Family Care: No Living arrangements: with family Gender identity (if verbalized by the patient): Female Spiritual care concerns: No Comments At the time of my signature, I reviewed and agree with the nursing past medical, surgical, social, and family history. There is no relevant family history pertinent to the patient complaint. Exam Narrative: GENERAL: This is a well-nourished, well-developed adult, in no apparent distress. They are non ill-appearing, nontoxic appearing. HEAD: normocephalic, atraumatic. EYES: Sclera clear/white. Conjunctiva normal. Vision is grossly intact. Extraocular movements intact P. Pupils PERRLA. No nystagmus. EARS: Left External ear normal, right auricle is erythematous and tender to palpation. Right external ear without protrusion. There is no erythema or swelling behind the right ear. No mastoid tenderness bilaterally. No area of f luctuance or induration behind the ear. Left Auditory canal clear and without drainage, right auditory canal is erythematous without discharge. TMs normal without perforation bilaterally. Hearing grossly intact. NOSE: External nose normal with no obvious nasal discharge, nasal turbinates without redness, no rhinorrhea. THROAT: Mucous membranes moist, posterior pharynx clear, without erythema or swelling. Uvula midline. NECK: Neck supple, non-tender without lymphadenopathy, masses or thyromegaly. CARDIOVASCULAR: Regular rate and rhythm without murmurs, gallops, or rubs. RESPIRATORY: Clear to auscultation. Breath sounds equal bilaterally. No wheezes, rales, or rhonchi. SKIN: warm, Dry, intact with no suspicious lesions or rash, good texture and turgor. NEURO: awake, alert, and oriented to person, place and time. There were no obvious focal neurologic abnormalities. EXTREMITIES: No joint tenderness, effusion, or edema noted. BACK: Nontender without deformity. Course Course Emergency Course: Portions of this record may have been created with voice recognition software Level of Care: Express Care Visit Vital Signs Vital signs: Vital Signs Temperature 97.7 F 09/07/24 11:44 Pulse Rate 67 09/07/24 11:44 Respiratory Rate 18 09/07/24 11:44 Blood Pressure 131/52 L 09/07/24 11:44 Pulse Oximetry 100 09/07/24 11:44 Oxygen Delivery Room Air 09/07/24 11:44 Temperature 97.7 F 09/07/24 11:44 Pulse Rate 67 09/07/24 11:44 Respiratory Rate 18 09/07/24 11:44 Blood Pressure 131/52 L 09/07/24 11:44 Pulse Oximetry 100 09/07/24 11:44 Oxygen Delivery Room Air 09/07/24 11:44 Reviewed Medical Decision Making MDM Narrative Medical decision making narrative: Appears patient has an otitis externa with evidence of cellulitis to the auricle of the right ear. Evidence of mastoiditis. Will treat empirically with p.o. levofloxacin and ofloxacin ear drops. No evidence of otitis media. Discussed physical exam findings. Advised supportive measures and signs/symptoms to go to the ER. Pt is appropriate for outpt treatment and f/u. Differential Diagnosis Differential Diagnosis: Otitis externa, otitis media, mastoiditis, cellulitis Vital Signs Vital Signs: Vital Signs Temperature 97.7 F 09/07/24 11:44 Pulse Rate 67 09/07/24 11:44 Respiratory Rate 18 09/07/24 11:44 Blood Pressure 131/52 L 09/07/24 11:44 Pulse Oximetry 100 09/07/24 11:44 Oxygen Delivery Room Air 09/07/24 11:44 Temperature 97.7 F 09/07/24 11:44 Pulse Rate 67 09/07/24 11:44 Respiratory Rate 18 09/07/24 11:44 Blood Pressure 131/52 L 09/07/24 11:44 Pulse Oximetry 100 09/07/24 11:44 Oxygen Delivery Room Air 09/07/24 11:44 Critical Care Time Critical Care Time Critical Care Time: No Discharge Plan Discharge Clinical Impression: Otitis externa, Cellulitis of auricle of right ear Patient Disposition: Home Condition: Stable Instructions: Antibiotic Form, Ear Infection (ED) Additional Instructions: Take oral antibiotics as directed. Take antibiotic drops as directed. Tylenol and ibuprofen every 8 hours as needed to reduce fever, pain Avoid water or anything into the ear until ear is completely healed. Follow up with your personal physician for further evaluation and treatment within 3-5days. If you develop redness, pain, or swelling behind your ear, worsening redness or swelling to ear, green or yellow discharge, fevers, or any other concerns please go to the ER immediately. Patient Language: Trinidadian Prescriptions: New levofloxacin 500 mg tablet 500 mg PO DAILY 7 Days Qty: 7 0RF ofloxacin 0.3 % drops 10 drp RIGHT EAR DAILY 7 Days Qty: 10 0RF No Action trospium 20 mg tablet 20 mg PO BID Rx Instructions: administer on an empty stomach Centrnuria Tovar Women 8 mg iron-400 mcg-300 mcg tablet 1 tablet PO DAILY omega-3 fatty acids [Fish Oil Concentrate] 1,000 mg capsule 2,000 mg PO BID Calcium Chews 650 mg 650 mg BYMOUTH DAILY Patient Comments: . nitroglycerin 0.4 mg tablet, sublingual 0.4 mg sublingual Q5M PRN (Reason: chest pain) Qty: 25 0RF Rx Instructions: do not exceed 3 doses per episode Prolia 60 mg/mL syringe 60 mg subcut [id number] (DME) blood-glucose meter [[employer] Ultra2 Meter] Kit See Rx Instructions .ROUTE .MEDSUPPLY Qty: 1 0RF Rx Instructions: Use to test BS once daily levothyroxine 88 mcg tablet See Rx Instructions .ROUTE .COMPLEX Qty: 100 2RF Dose Instruction: TAKE 1 TABLET BY MOUTH DAILY Rx Instructions: TAKE 1 TABLET BY MOUTH DAILY trazodone 50 mg tablet See Rx Instructions .ROUTE .COMPLEX Qty: 180 3RF Dose Instruction: TAKE 1 TO 2 TABLETS BY MOUTH AT BEDTIME FOR SLEEP Rx Instructions: TAKE 1 TO 2 TABLETS BY MOUTH AT BEDTIME FOR SLEEP losartan 100 mg tablet See Rx Instructions .ROUTE .COMPLEX Qty: 100 1RF Dose Instruction: TAKE 1 TABLET BY MOUTH DAILY Rx Instructions: TAKE 1 TABLET BY MOUTH DAILY ferrous sulfate [FeroSul] 325 mg (65 mg iron) tablet See Rx Instructions .ROUTE .COMPLEX Qty: 180 0RF Dose Instruction: TAKE 1 TABLET BY MOUTH TWICE DAILY Rx Instructions: TAKE 1 TABLET BY MOUTH TWICE DAILY ezetimibe 10 mg tablet See Rx Instructions .ROUTE .COMPLEX Qty: 90 0RF Dose Instruction: TAKE 1 TABLET BY MOUTH DAILY Rx Instructions: TAKE 1 TABLET BY MOUTH DAILY escitalopram oxalate 10 mg tablet See Rx Instructions .ROUTE .COMPLEX Qty: 90 3RF Dose Instruction: TAKE 1 TABLET BY MOUTH DAILY Rx Instructions: TAKE 1 TABLET BY MOUTH DAILY pantoprazole 40 mg tablet,delayed release (DR/EC) 40 mg PO BID Qty: 60 4RF gabapentin 600 mg tablet 600 mg PO TID Qty: 270 1RF Rx Instructions: Please D/C the Gabapentin 400mg. Thank you Januvia 100 mg tablet See Rx Instructions .ROUTE .COMPLEX Qty: 90 2RF Dose Instruction: TAKE 1 TABLET BY MOUTH DAILY (STOP METFORMIN) Rx Instructions: TAKE 1 TABLET BY MOUTH DAILY (STOP METFORMIN) (DME) OneTouch Ultra Test Strip See Rx Instructions .ROUTE .COMPLEX Qty: 100 0RF Dose Instruction: USE TO TEST BLOOD SUGAR ONCE DAILY Rx Instructions: USE TO TEST BLOOD SUGAR ONCE DAILY (DME) lancets [OneTouch Delica Plus Lancet] 33 gauge misc See Rx Instructions .ROUTE .COMPLEX Qty: 100 0RF Dose Instruction: TEST BLOOD SUGAR ONCE DAILY Rx Instructions: TEST BLOOD SUGAR ONCE DAILY Follow-up/Referrals: Min Logan MD [Primary Care Provider] - Time of Disposition: 11:53
== END 2024-09-07 12:02 | disposition home or self-care (01) ==
PROVIDERS: PCP Internal Medicine
DX: H60.91 Unspecified otitis externa, right ear (principal); H60.11 Cellulitis of right external ear; I10 Essential (primary) hypertension; K21.9 Gastro-esophageal reflux disease without esophagitis; E78.2 Mixed hyperlipidemia; E03.9 Hypothyroidism, unspecified; M81.0 Age-related osteoporosis without current pathological fracture; M47.24 Other spondylosis with radiculopathy, thoracic region; H35.30 Unspecified macular degeneration; M47.816 Spondylosis without myelopathy or radiculopathy, lumbar region; F41.9 Anxiety disorder, unspecified; F32.9 Major depressive disorder, single episode, unspecified
CPT/HCPCS: 99213; G0463

== ENCOUNTER 2024-10-09 09:56 | Outpatient (CLI) | payer MEDICARE, SELFPAY ==
--- NOTE | ~2024-10-09 | CT_ITS ---
EXAMINATION: CT abdomen pelvis w con DATE: 10/09/2024 10:20 INDICATION: Unspecified abdominal pain TECHNIQUE: Computed tomography (CT) of the abdomen and pelvis was performed with 100 mL Omnipaque-350 intravenous contrast. Automated exposure control and iterative reconstruction technique were employe d. The dose-length product was 347.37 mGy-cm. COMPARISON: None FINDINGS: Mild bibasilar atelectasis. Heart size is normal. No pericardial or pleural effusion. Liver, gallblad mio, spleen, pancreas, bilateral adrenal glands and kidneys are normal. Normal appendix. Large amount of stool scattered throughout the colon suggestive of constipation. There are few scattered colonic diverticula without adjacent comparison to suggest diverticulitis. No bowel obstruction. Bladder, [place] bang and left adnexa are unremarkable.. 1.8 cm right adnexal cyst/follicle. No free intraperitoneal ga s or fluid. No pathologically enlarged abdominal or pelvic lymphadenopathy. Upper lumbar dextroscolio sis with moderate lumbar spondylosis. L4 laminectomy and partial L3 laminectomy. Instrumented L3-L5 p osterior spinal fusion with bilateral vertical jose and pedicle screw fixation. IMPRESSION: 1. Large amount of colonic stool suggestive of constipation. No other acute cardiopulmonary disease. Reviewed, dictated and finalized at location A. IMPRESSION: 1. Large amount of colonic stool suggestive of constipation. No other acute car diopulmonary disease.
[2024-10-09 10:17] LABS: Estimated Glomerular Filt Rate 60
== END 2024-10-09 09:57 | disposition home or self-care (01) ==
PROVIDERS: PCP Internal Medicine; Visit Provider Internal Medicine
DX: R10.9 Unspecified abdominal pain (principal); R30.0 Dysuria
CPT/HCPCS: 74177; Q9967

== ENCOUNTER 2024-10-29 07:34 | Observation (INO) | payer MEDICARE, SELFPAY ==
[2024-10-29] VITALS (8 sets, daily range): BP systolic 115–155; BP diastolic 38–71; PULSE 79–88; RESP 14–20; TEMP 36.9–37.3; O2SAT 95–100
--- NOTE | ~2024-10-29 | CT_ITS ---
CT of the Abdomen and Pelvis: Indication: Abdominal pain Technique: 2.5 mm axial scans were obtained through the abdomen and pelvis following intravenous adm inistration of 100 cc of Omnipaque 350. Dose reduction technique was used on this scan by utilizing a utomated exposure control and iterative reconstruction technique. The dose-length product (DLP) was 4 16.93 mGy-cm. COMPARISON: 10/09/2024 Findings: Scans through the lung bases are unremarkable. The liver, spleen, pancreas, gallbladder, adrenals and kidneys are within normal limits. No evidence of aortic aneurysm. No lymphadenopathy. No bowel obstruction or bowel wall thickening. There is no evidence to suggest acute appendicitis. Images through the pelvis were performed. Urinary bladder unremarkable. No pelvic mass seen. No ascit es. Impression: No significant abnormalities seen. Reviewed, dictated and finalized at [facility]. Impression: No significant abnormalities seen.
--- OUTSIDE RECORDS SUMMARY | 2024-10-29 07:37 | XMS_ITS | Patient Health Record ---
Author Organization [facility] Address [address] [place] [address] Care Team Providers Care Sales Representative Jewelry Name Role Phone Priyanka Clayton Unavailable [phone] Reason For Referral No Information Medications Medication SIG (Take, Route, Frequency, Duration) Notes Start Date End Date Status Triamterene-HCTZ 37.5-25 MG Oral 11/18/2018 Active Escitalopram Oxalate 10 MG Oral 11/18/2018 Active Cyclobenzaprine HCl 10 MG Oral 11/18/2018 Active Gabapentin 100 MG Oral 11/18/2018 A ctive HYDROcodone-Acetaminophen 5-325 MG Oral 11/18/2018 Active ALPRAZolam 0.5 MG Oral 11/18/2018 A ctive Losartan Potassium 100 MG Oral 11/18/2018 Active Levothyroxine Sodium 100 MCG Oral 11/18/2018 Active metFORMIN HCl 500 MG Oral 11/18/2018 Active traZODone HCl 50 MG Oral 11/18/2018 Active Famotidine 40 MG Oral 11/18/2018 Ac tive traMADol HCl 50 MG Oral 11/18/2018 Active Immunizations Vaccine Route Administration Date Status Comme nts Influenza virus vaccine, quadrivalent (IIV4), split virus, 0.25 mL dosage Unknown 01/14/2018 Administered Pneumococcal conjugate PCV 7 Unknown 04/16/2011 Adminis tered Pneumococcal polysaccharide PPV23 Unknown 04/16/2013 Ad ministered Plan Of Treatment No Information Insurance Providers Payer Name Payer Address Payer Phone Subscriber Number Group Number Insured Name Patient Relationship to Insured Coverage Start Date Coverage End Date [place] [address] [place] [address] [id number] NATA JOHNSON, VENKATESH Self - patient is the insured [employer] Medicare Supplement [address] [place] [address] [id number] [facility], VENKATESH Self - patient is the insured
--- OUTSIDE RECORDS SUMMARY | 2024-10-29 07:37 | XMS_ITS | Clinical Summary ---
Author Organization [facility] Address [address] [place] [id number] Care Team Providers Care Vegetable Grader Name Role Phone Unavailable Primary Care Provider [...]
--- OUTSIDE RECORDS SUMMARY | 2024-10-29 07:38 | XMS_ITS | Clinical Summary ---
Author Organization [facility] C Address [address] [place] [address] Care Team Providers Care Spray Applicator Name Role Phone Min Logan MD Primary Care Provider [phone] Allergies Active Allergy Reactions Criticality Noted Date [...] 1 tablet (88 mcg total) by mouth doggy daycare activities director before breakfast 90 tablet 1 Active calcium [...] 02/18/2024 Assessment & Plan (02/18/2024 10:09 AM SOCIAL WORK NURSE): I suspect her persistent cough is likely [...] 02/18/2024 Assessment & Plan (02/18/2024 10:08 AM SOCIAL WORK NURSE): I reassured her that her vocal cords look okay and I recommended no intervention. She understands. Impacted cerumen of right ear 02/18/2024 Assessment & Plan (02/18/2024 9:59 AM SOCIAL WORK NURSE): This ear was cleaned without difficulty. Needs no further intervention. Thoracic spine pain 05/08/2023 Assessment & Plan (05/08/2023 12:14 PM SOCIAL WORK NURSE): Ms. Domínguez has a primary complaint of [...] months Assessment & Plan (03/27/2022 1:42 PM SOCIAL WORK NURSE): Treatment options risks and alternatives discussed. Recommended [...] months. Assessment & Plan (06/13/2020 12:54 PM SOCIAL WORK NURSE): Images from the original note were not [...] diet Assessment & Plan (03/27/2022 1:42 PM SOCIAL WORK NURSE): Chronic, well controlled Continue losartan Low-salt diet Assessment & Plan (08/23/2021 10:49 PM CDT): Chronic, stable. Continue losartan. DASH diet. Assessment & Plan (12/31/2020 3:48 PM CDT): Stable on losartan. Low-salt diet and exercise as tolerated Assessment & Plan (06/13/2020 12:04 PM SOCIAL WORK NURSE): Stable on losartan. Hyperlipidemia associated with type 2 diabetes margaret schwarz 06/13/2020 Assessment & Plan (11/17/2022 12:16 PM CDT): LDL 107, goal less than 100. Continue Zetia Low cholesterol diet Assessment & Plan (03/27/2022 1:40 PM SOCIAL WORK NURSE): Continue Nexlizet. Low cholesterol diet Will request previous labs. Assessment & Plan (08/23/2021 10:51 PM CDT): LDL 107. Continue Nexlizet. Low cholesterol/low-fat diet Assessment & Plan (12/31/2020 3:49 PM CDT): Stable. Continue rosuvastatin 20 mg HS. Assessment & Plan (06/13/2020 12:04 PM SOCIAL WORK NURSE): LDL at goal. Continue rosuvastatin 20 mg HS. 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 This does not seem to be symptomatic at this time. Assessment & Plan (04/18/2022 2:49 PM SOCIAL WORK NURSE): Ms. Domínguez has a known pseudoarthrosis at [...] cramps. Assessment & Plan (06/13/2020 12:39 PM SOCIAL WORK NURSE): Management of osteopenia as above. Acquired hypothyroidism 06/10/2020 Assessment & Plan (11/17/2022 12:15 PM CDT): Clinically euthyroid Continue levothyroxine 88 mcg daily TSH today TSH goal 0.3-4.2. TSH annually if at goal. Assessment & Plan (03/27/2022 1:42 PM SOCIAL WORK NURSE): Clinically euthyroid Continue levothyroxine 88 mcg daily. TSH annually Assessment & Plan (08/23/2021 10:49 PM CDT): Clinically and biochemically euthyroid Continue levothyroxine 88 mcg daily. TSH Q 6-12 months. TSH was 0.3-4.2. Assessment & Plan (12/31/2020 3:53 PM CDT): Continue levothyroxine 88 mcg daily. TSH today TSH goal 0.4-4.5. Assessment & Plan (06/13/2020 12:03 PM SOCIAL WORK NURSE): TSH was 0.0 27 in March 2020. TSH goal 0.45-4.5. Avoid TSH suppression due to risk of worsening BMD. Continue levothyroxine 100 mcg daily. Will check TSH. Dose adjustment based on above. 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 Continue metformin 1000 mg b.i.d. and Farxiga 10 mg daily Consistent carb diet A1c today. Annual dilated eye exam Assessment & Plan (03/27/2022 1:41 PM SOCIAL WORK NURSE): Chronic, stable Continue Xigduo mg with breakfast [...] tolerated. Assessment & Plan (06/13/2020 12:04 PM SOCIAL WORK NURSE): Well controlled. Hemoglobin A1c 6.4%. Continue Xigduo [...] patient. Assessment & Plan (06/12/2019 1:22 PM SOCIAL WORK NURSE): Ms. Domínguez is status post L3-L5 decompression [...] Forteo injections. Patient is concerned about the [id number] cost but is aware of some financial [...] point. Assessment & Plan (06/12/2019 1:23 PM SOCIAL WORK NURSE): Ms. Domínguez is doing well in regards [...] (11/26/2018): Added automatically from request for surgery [id number] Lumbar stenosis with neurogenic claudication 9 06/12/2019 [...] on file Legal Sex Female 2:29 AM SOCIAL WORK NURSE Gender Identity Not on file Sexual Orientation Not on file Occupation Industry Job Start Date Job End Date Retired Not on file Not on file Not on file Obstetrics History Last Filed Vital Signs Vital Sign Reading Time Taken Comments Blood Pressure 110/60 11/17/2022 10:48 AM CDT Pulse 72 11/17/2022 10:48 AM CDT Temperature 36.3 C (97.3 F) 03/27/2022 9:53 AM SOCIAL WORK NURSE Respiratory Rate 18 02/13/2024 10:40 AM CDT [...] 12/31/2020, Additional history exists Influenza Vaccine (#1) 2024 8, 01/12/2017, 02/15/2015, Additional history exists Medical Devices Implanted Type Area Terrazzo Grinder Device Identifier Shelf Expiration Date Model / Serial / Lot [employer] [id number] Inqu Paste Mix Plus At Risk Specialist 10cc Bone Graft Hyaluronic Acid Poly - [id number] Implanted:Qty: 1 on 12/13/2018 by Jose Portillo MD at [facility] N/A: Spine Lumbar [employer] 08/01/2020 [id number] / / [id number] Core Link [id number] [place] 6.5mm 40mm Spine Pedicle Screw Bone 5500 Series - [id number] Implanted:Qty: 2 on 12/13/2018 by Jose Portillo MD at [facility] N/A: Spine Lumbar Core Link [id number] / / Core Link [id number] [place] 7mm 40mm Spine Pedicle Screw Bone Nonsterile 5500 Series - [id number] Implanted:Qty: 4 on 12/13/2018 by Jose Portillo MD at [facility] N/A: Spine Lumbar Core Link [id number] / / Core Link [id number] [place] Screw Set 5500 Series - [id number] Implanted:Qty: 6 on 12/13/2018 by Jose Portillo MD at [facility] N/A: Spine Lumbar Core Link [id number] / / Core Link [id number] [place] 5.5mm 65mm Line Prebent Johnie Spinal Nonsterile 5500 Series - [id number] Implanted:Qty: 1 on 12/13/2018 by Jose Portillo MD at [facility] N/A: Spine Lumbar Core Link [id number] / / Procedures Procedure Name Priority Date/Time [...] AM CDT) eGFR 66 mL/min/1. 73 m2 [facility] Comment: Interpretive Data Reference Interval Normal >/= [...] MD LAB BLOOD ORDERABLES F inal Result [facility] [address] Department [place] [address] * (ABNORMAL) Hemoglobin A1c (11/17/2022 11:34 AM CDT) Hgb A1C 7.5(H) 4.0 - 5.6 % [facility] Estimated Average Glucose 169 mg/dL [facility] Comment: The ADA recommends reporting an estimated Average Glucose (eAG) with all Hemoglobin A1c results using the equation derived from a study of 507 normal and diabetic adults. Minority populations were underrepresented and children were not included. (Diabetes Care 31:5246-6005, 2008). The eAG is not equivalent to a fasting glucose. Blood 11/17/2022 11:3 4 AM CDT 11/17/2022 2:52 PM CDT us Josué Ceron MD LAB BLOOD ORDERABLES F inal Result [facility] [address] Department [place] [address] * (ABNORMAL) Lipid panel (12/27/2021 10:00 AM CDT) SCRIBED Cholesterol, Total 202(A) 0 - 200 EXTERNAL LAB SCRIBED HDL 70 50 - 100 EXTERNAL LAB SCRIBED LDL 89 0 - 120 EXTERNAL LAB SCRIBED Triglycerides 84 0 - 200 EXTERNAL LAB Blood 12/27/2021 10:0 0 AM CDT us Generic External Data Provider LAB BLOOD ORDERAB LES Final Result Performing Organization Address City/[facility]/ZIP Co de Phone Number EXTERNAL LAB * Dexa Axial Skeleton Bone Density 1 or 2 Site (12/08/2019) Anatomical Region Laterality Modality Body N/A Radiographic Yara ging us Min Logan MD IMG DXA PROCEDURES Final Resu lt from Last 3 Months or Most Recently Relevant to Health Maintenance Insurance [facility] MEDICARE ADVANTAGE [facility] Address: [facility] [address] [place] [address] [facility] MDCR HMO REF [facility] MED[facility] Address: [address] [address] [place] [address] [facility] MEDICARE ADVANTAGE [facility]IC[facility] Address: [address] [address] [place] [address] Advance Directives For more information, please contact: [phone] * Full Code (Latest Code Status on File) Date Activated Date Inactivated Comments 12/13/2018 1:49 PM 12/14/2018 7:30 PM Care Teams Spray Applicator Relationship Specialty Start Date End Date Min Logan MD [address] [place] [address] PCP - General 11/30/11
--- OUTSIDE RECORDS SUMMARY | 2024-10-29 07:38 | XMS_ITS | Referral Summary ---
[facility] Organization [facility] C Address [address] [place] [address] Care Team Providers Care Commercial Credit Head Name Role Phone Min Logan MD Primary Care Provider [phone] Allergies Active Allergy Reactions Criticality Noted Date [...] 1 tablet (88 mcg total) by mouth tank worker before breakfast 90 tablet 1 Active calcium [...] 02/18/2024 Assessment & Plan (02/18/2024 10:09 AM SESSIONS CLERK): I suspect her persistent cough is likely [...] 02/18/2024 Assessment & Plan (02/18/2024 10:08 AM SESSIONS CLERK): I reassured her that her vocal cords look okay and I recommended no intervention. She understands. Impacted cerumen of right ear 02/18/2024 Assessment & Plan (02/18/2024 9:59 AM SESSIONS CLERK): This ear was cleaned without difficulty. Needs no further intervention. Thoracic spine pain 05/08/2023 Assessment & Plan (05/08/2023 12:14 PM SESSIONS CLERK): Ms. Domínguez has a primary complaint of [...] months Assessment & Plan (03/27/2022 1:42 PM SESSIONS CLERK): Treatment options risks and alternatives discussed. Recommended [...] months. Assessment & Plan (06/13/2020 12:54 PM SESSIONS CLERK): Images from the original note were not [...] diet Assessment & Plan (03/27/2022 1:42 PM SESSIONS CLERK): Chronic, well controlled Continue losartan Low-salt diet Assessment & Plan (08/23/2021 10:49 PM CDT): Chronic, stable. Continue losartan. DASH diet. Assessment & Plan (12/31/2020 3:48 PM CDT): Stable on losartan. Low-salt diet and exercise as tolerated Assessment & Plan (06/13/2020 12:04 PM SESSIONS CLERK): Stable on losartan. Hyperlipidemia associated with type 2 diabetes margaret schwarz 06/13/2020 Assessment & Plan (11/17/2022 12:16 PM CDT): LDL 107, goal less than 100. Continue Zetia Low cholesterol diet Assessment & Plan (03/27/2022 1:40 PM SESSIONS CLERK): Continue Nexlizet. Low cholesterol diet Will request previous labs. Assessment & Plan (08/23/2021 10:51 PM CDT): LDL 107. Continue Nexlizet. Low cholesterol/low-fat diet Assessment & Plan (12/31/2020 3:49 PM CDT): Stable. Continue rosuvastatin 20 mg HS. Assessment & Plan (06/13/2020 12:04 PM SESSIONS CLERK): LDL at goal. Continue rosuvastatin 20 mg HS. 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 This does not seem to be symptomatic at this time. Assessment & Plan (04/18/2022 2:49 PM SESSIONS CLERK): Ms. Domínguez has a known pseudoarthrosis at [...] cramps. Assessment & Plan (06/13/2020 12:39 PM SESSIONS CLERK): Management of osteopenia as above. Acquired hypothyroidism 06/10/2020 Assessment & Plan (11/17/2022 12:15 PM CDT): Clinically euthyroid Continue levothyroxine 88 mcg daily TSH today TSH goal 0.3-4.2. TSH annually if at goal. Assessment & Plan (03/27/2022 1:42 PM SESSIONS CLERK): Clinically euthyroid Continue levothyroxine 88 mcg daily. TSH annually Assessment & Plan (08/23/2021 10:49 PM CDT): Clinically and biochemically euthyroid Continue levothyroxine 88 mcg daily. TSH Q 6-12 months. TSH was 0.3-4.2. Assessment & Plan (12/31/2020 3:53 PM CDT): Continue levothyroxine 88 mcg daily. TSH today TSH goal 0.4-4.5. Assessment & Plan (06/13/2020 12:03 PM SESSIONS CLERK): TSH was 0.0 27 in March 2020. TSH goal 0.45-4.5. Avoid TSH suppression due to risk of worsening BMD. Continue levothyroxine 100 mcg daily. Will check TSH. Dose adjustment based on above. 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 Continue metformin 1000 mg b.i.d. and Farxiga 10 mg daily Consistent carb diet A1c today. Annual dilated eye exam Assessment & Plan (03/27/2022 1:41 PM SESSIONS CLERK): Chronic, stable Continue Xigduo mg with breakfast [...] tolerated. Assessment & Plan (06/13/2020 12:04 PM SESSIONS CLERK): Well controlled. Hemoglobin A1c 6.4%. Continue Xigduo [...] patient. Assessment & Plan (06/12/2019 1:22 PM SESSIONS CLERK): Ms. Domínguez is status post L3-L5 decompression [...] Forteo injections. Patient is concerned about the [id number] cost but is aware of some financial [...] point. Assessment & Plan (06/12/2019 1:23 PM SESSIONS CLERK): Ms. Domínguez is doing well in regards [...] (11/26/2018): Added automatically from request for surgery [id number] Lumbar stenosis with neurogenic claudication 9 06/12/2019 [...] on file Legal Sex Female 2:29 AM SESSIONS CLERK Gender Identity Not on file Sexual Orientation Not on file Occupation Industry Job Start Date Job End Date Retired Not on file Not on file Not on file Last Filed Vital Signs Vital Sign Reading Time Taken Comments Blood Pressure 110/60 11/17/2022 10:48 AM CDT Pulse 72 11/17/2022 10:48 AM CDT Temperature 36.3 C (97.3 F) 03/27/2022 9:53 AM SESSIONS CLERK Respiratory Rate 18 02/13/2024 10:40 AM CDT Oxygen Saturation 97% 12/14/2018 12:31 PM CDT Inhaled Oxygen Concentration - - Weight 66.7 kg (147 lb) 02/13/2024 10:40 AM CDT Height 165.1 cm (5' 5) 02/13/2024 10:40 AM CDT Body Mass Index 24.46 02/13/2024 10:40 AM CDT Plan of Treatment Not on file Medical Devices Implanted Type Area Machine Learning Intern Device Identifier Shelf Expiration Date Model / Serial / Lot [employer] [id number] Inqu Paste Mix Plus Director Of Digital Marketing 10cc Bone Graft Hyaluronic Acid Poly - [id number] Implanted:Qty: 1 on 12/13/2018 by Jose Portillo MD at [facility] N/A: Spine Lumbar Isto [employer] 08/01/2020 [id number] / / [id number] Core Link [id number] [place] 6.5mm 40mm Spine Pedicle Screw Bone 5500 Series - [id number] Implanted:Qty: 2 on 12/13/2018 by Jose Portillo MD at [facility] N/A: Spine Lumbar Core Link [id number] / / Core Link [id number] [place] 7mm 40mm Spine Pedicle Screw Bone Nonsterile 5500 Series - [id number] Implanted:Qty: 4 on 12/13/2018 by Jose Portillo MD at [facility] N/A: Spine Lumbar Core Link 11256-10 / / Core Link [id number] [place] Screw Set 5500 Series - [id number] Implanted:Qty: 6 on 12/13/2018 by Jose Portillo MD at [facility] N/A: Spine Lumbar Core Link [id number] / / Core Link [id number] [place] 5.5mm 65mm Line Prebent Johnie Spinal Nonsterile 5500 Series - [id number] Implanted:Qty: 1 on 12/13/2018 by Jose Portillo MD at [facility] N/A: Spine Lumbar Core Link [id number] / / Procedures Procedure Name Priority Date/Time [...] Results * eGFR (11/17/2022 11:34 AM CDT) [facility] eGFR 66 mL/min/1. 73 m2 [facility] Comment: Interpretive Data Reference Interval [...] ORDERABLES F inal Result Performing Organization Address City/[facility]/ZIP Co de Phone Number [facility] [address] Department [place] [address] * (ABNORMAL) Hemoglobin A1c (11/17/2022 11:34 AM CDT) Hgb A1C 7.5(H) 4.0 - 5.6 % [facility] Estimated Average Glucose 169 mg/dL [facility] Comment: The ADA recommends reporting an estimated Average Glucose (eAG) with all Hemoglobin A1c results using the equation derived from a study of 507 normal and diabetic adults. Minority populations were underrepresented and children were not included. (Diabetes Care 31:8216-1205, 2008). The eAG is not equivalent to a fasting glucose. Blood 11/17/2022 11:3 4 AM CDT 11/17/2022 2:52 PM CDT Josué Ceron MD LAB BLOOD ORDERABLES F inal Result Performing Organization Address City/[facility]/ZIP Co de Phone Number [facility] [address] Department [place] [address] * (ABNORMAL) Lipid panel (12/27/2021 10:00 AM [...] Most Recently Relevant to Health Maintenance Insurance [facility] MEDICARE ADVANTAGE [facility] Address: [facility] [address] [place] [address] [facility] MDCR HMO REF [facility] MEDIC[facility] Address: [address] [address] [place] [address] [facility] MEDICARE ADVANTAGE [facility] MEDICARE Address: [address] [address] [place] [address] Advance Directives For more information, please contact: [phone] * Full Code (Latest Code Status on File) Date Activated Date Inactivated Comments 12/13/2018 1:49 PM 12/14/2018 7:30 PM Care Teams Commercial Credit Head Relationship Specialty Start Date End Date Min Logan MD [address] [facility] [address] [place] [address] PCP - General 11/30/11
[2024-10-29 08:04] LABS: Hematocrit 34.9 % (37.0-47.0); Hemoglobin 12.0 g/dL (12.0-15.0); Immature Granulocyte Percent A 0.5 % (0-0.5); Lymphocytes Absolute Auto 0.73 K/mm3 (0.9-3.2); Mean Corpuscular HGB Conc 34.4 g/dl (32-36); Mean Corpuscular Hemoglobin 33.0 pg (26-34); Mean Corpuscular Volume 95.9 fl (80-100); Nucleated Red Blood Cells Absolute Auto 0.000 K/mm3 (0.0-0.012); Nucleated Red Blood Cells Perc 0.0 % (0.0-0.2); Platelet Count Result 153 k/mm3 (150-375); Red Blood Count 3.64 M/mm3 (4.2-5.4); White Blood Count 10.4 K/mm3 (4.5-10.0)
--- NOTE | 2024-10-29 08:05 | ECG_ITS ---
Test Date: 2024-10-29 08:20:08 Measurements Intervals [place] Rate: 80 P: 58 AR: 149 QRS: 44 QRSD: 100 T: 54 QT: 385 QTc: 447 Interpretive Statements SINUS RHYTHM POSSIBLE LEFT ATRIAL ENLARGEMENT [-0.1mV P-WAVE IN V1/V2] NONSPECIFIC ST DEPRESSIONS No previous ECG available for comparison Electronically Signed On 10-29-2024 12:47:21 CDT by Jp Mcqueen M.D.
--- NOTE | 2024-10-29 08:05 | ED_ITS ---
HPI - Abdominal Pain General Chief Complaint: Abdominal Pain Stated Complaint: DIZZINESS,N/V Time Seen by Provider: 10/29/24 08:04 Source: patient and family Mode of arrival: ambulatory Limitations: no limitations History of Present Illness HPI narrative: 84 YEARS OLD WHITE FEMALE CAME TO THE ED COMPLAINING OF RIGHT LOWER QUADRANT PAIN RADIATING TO RIGHT LOWER BACK PAIN RIGHT FLANK PAIN STARTED 6 WEEKS AGO WAS SEEN BY HER FAMILY PHYSICIAN, WITH NEGATIVE WORKUP. PAIN GOT WORSE YESTERDAY AT 10:00 A.M., STEADY, ASSOCIATED WITH NAUSEA, DENIES ANY FEVER, CHILLS, VOMITING, DIARRHEA, CONSTIPATION, VAGINAL BLEEDING OR DISCHARGE. PATIENT DENIES HISTORY OF ABDOMINAL SURGERY HISTORY OF DIABETES HYPERTENSION HYPERLIPIDEMIA HYPOTHYROIDISM CURRENTLY ON BABY ASPIRIN ONCE A DAY. PATIENT DOES NOT SMOKE OR DRINK OR USE DRUGS Related Data Home Medications ?Medication ?Instructions ?Recorded ?Confirmed ?Last Taken ?Type aleyffty-jaqd-hfml 8 mg-folic 400 1 tablet PO DAILY 05/01/19 10/21/24 07/27/23 History mcg-K 50 mcg-lutein 300 mcg tablet (Centrum Silver Women) omega-3 fatty acids 1,000 mg 2,000 mg PO BID 05/01/19 10/21/24 07/27/23 History capsule (Fish Oil Concentrate) Calcium Chews 650 mg BYMOUTH DAILY 08/08/21 10/21/24 07/27/23 History denosumab 60 mg/mL subcutaneous 60 mg subcut [id number] 02/15/23 10/21/24 Unknown History syringe (Prolia) trospium 20 mg tablet 20 mg PO BID 06/26/24 10/21/24 Unknown History Allergies Allergy/AdvReac Type Severity Reaction Status Date / Time tizanidine AdvReac Intermediate Confusion Verified 10/29/24 07:46 Review of Systems 2 Review of Systems: All systems reviewed & are unremarkable except as noted in HPI and below PMFSH Past Medical History Medical History Pulmonary nodules Low ferritin Iron deficiency anemia Chronic cough Neutropenia Chest discomfort Hypersomnolence Memory impairment Follow up Tremor Osteoporosis Osteoarthritis of thoracic spine with radiculopathy Body mass index [BMI] 25.0-25.9, adult (10/31/16) Thin nails Skin lesion of cheek Hair loss [place] (dyspnea on exertion) Chest wall pain BMI 27.0-27.9,adult Statin intolerance BMI 22.0-22.9, adult Itchy skin Fatigue Dark stools Diarrhea Macular degeneration Dry eye Hx of colonic polyps Muscular aches Elevated homocysteine Vaginal delivery x1 Missed x3 Postmenopausal bleeding Hypertension MDD (major depressive disorder) Skin mole Abnormal vaginal bleeding in postmenopausal patient Microscopic hematuria Unintentional weight loss Colon cancer screening Personal history of covid-19 Chronic SI joint pain Degenerative joint disease (DJD) of hip Seasonal allergies Arthritis Anxiety Depression GERD (gastroesophageal reflux disease) Vertigo Vision abnormalities BMI 25.0-25.9,adult Mixed hyperlipidemia Bilateral hip pain Restrictive lung disease Hearing loss Abnormal finding of blood chemistry, unspecified Hypothyroidism (acquired) Benign essential hypertension Chronic low back pain Lumbar spondylosis Pedal edema Bilateral flank pain Abdominal bloating Surgical History Surgical History History of bilateral tubal ligation History of eye surgery cataract removal both eyes H/O dilation and curettage History of section x1 History of back surgery L 3-4-5 fusion Family History Family History Mother Hypertension Family history of malignant neoplasm Father Hypertension Family history of Alzheimer's disease Family history of chronic obstructive pulmonary disease Family history of dementia Sibling Family history of diabetes mellitus in first degree relative Social History Social History Smoking status: Never smoker Second hand tobacco smoke exposure: No Alcohol intake: never Alcohol use details: wine occasionally Substance use: never Substance use type: does not use Lack of Transportation: No Lack of Food: Never True Current Housing: I Have Housing Concerned About Future Housing: No Difficulty Paying Gas/Electric Bills: No Difficulty Paying for Meds: No Currently Unemployed: No Education: Trade/Vocational Certificate Difficulty w/ Childcare or Family Care: No Living arrangements: with family Gender identity (if verbalized by the patient): Female Spiritual care concerns: No Exam 2 Narrative: GENERAL APPEARANCE: WELL-DEVELOPED, WELL-NOURISHED SKIN: NORMAL COLOR HEAD: NORMOCEPHALIC, NONTRAUMATIC EYES: CLEAR CONJUNCTIVA ENT: OROPHARYNX NORMAL, EARS NORMAL, NOSE NORMAL NECK: SUPPLE, NONTENDER CHEST AND RESPIRATORY: AIRWAY PATENT, NO RESPIRATORY DISTRESS, NO ACCESSORY MUSCLE USE HEART: REGULAR RATE/RHYTHM ABDOMEN: SOFT, RIGHT LOWER QUADRANT TENDERNESS NO GUARDING OR REBOUND, NO ORGANOMEGALY, QUIET BOWEL SOUNDS VASCULAR: NORMAL PERIPHERAL PULSES, NORMAL CAPILLARY REFILL. MUSCULOSKELETAL: NORMAL RANGE OF MOTION, NONTENDER BACK NEUROLOGIC: ALERT AND ORIENTED ?3, MEMBER OF THE LEGISLATIVE ASSEMBLY IS NORMAL TESTED, NO GROSS MOTOR DEFICIT Course Vital Signs Vital signs: Vital Signs Temperature 36.9 C 10/29/24 07:42 Pulse Rate 84 10/29/24 07:42 Respiratory Rate 18 10/29/24 07:42 Blood Pressure 155/71 H 10/29/24 07:42 Pulse Oximetry 96 10/29/24 07:42 Oxygen Delivery Room Air 10/29/24 07:42 Temperature 36.9 C 10/29/24 07:42 Pulse Rate 83 10/29/24 10:16 Respiratory Rate 20 10/29/24 10:16 Blood Pressure 128/49 L 10/29/24 10:16 Pulse Oximetry 100 10/29/24 10:16 Oxygen Delivery Room Air 10/29/24 07:42 MDM - Abdominal Pain MDM Narrative Medical decision making narrative: PATIENT PRESENTS WITH RIGHT LOWER QUADRANT PAIN VITAL SIGNS ARE STABLE PHYSICAL EXAMINATION CONSISTENT WITH MODERATE TENDERNESS RIGHT LOWER QUADRANT, SLIGHT TENDERNESS LEFT LOWER QUADRANT OTHERWISE WITHIN NORMAL LIMIT DIFFERENTIAL DIAGNOSIS INCLUDE APPENDICITIS, CHOLECYSTITIS, DIVERTICULITIS, COLITIS, CONSTIPATION, URINARY TRACT INFECTION, INTRA-ABDOMINAL MASS BLOOD WORKUP TODAY INCLUDES CBC, CMP, LIPASE, LACTIC ACID SHOWED WBC 10.4, SODIUM 126, GLUCOSE 242, THE URINALYSIS SHOWED NO SIGNIFICANT ABNORMALITIES CT ABDOMEN AND PELVIS WITH IV CONTRAST SHOWED NO SIGNIFICANT ABNORMALITIES DIAGNOSIS HYPONATREMIA, SIADH IS MY CONCERN. URINE SODIUM, URINE OSMOLALITY, SERUM OSMOLALITY, TSH ORDERED ADMIT TO HOSPITALIST Differential Diagnosis Differential diagnosis: Likely other ( ABOVE) Medical Records Attestation: I reviewed the patient's medical records. Lab Data Attestation: I reviewed the patient's lab results. 10/29/24 07:59 10/29/24 07:59 Labs: Lab Results 10/29/24 10/29/24 Range/Units 07:59 08:16 WBC 10.4 H (4.5-10.0) K/mm3 RBC 3.64 L (4.2-5.4) M/mm3 Hgb 12.0 (12.0-15.0) g/dL Hct 34.9 L (37.0-47.0) % MCV 95.9 (80-100) fl MCH 33.0 (26-34) pg MCHC 34.4 (32-36) g/dl RDW 11.7 (11.5-14.5) % Plt Count 153 (150-375) k/mm3 MPV 9.5 (7.4-10.4) fl Immature Gran % (Auto) 0.5 (0-0.5) % Neut % (Auto) 85.7 H (45.5-73.1) % Lymph % (Auto) 7.0 L (18.3-44.2) % [place] % (Auto) 6.0 (2.6-8.5) % Eos % (Auto) 0.5 (0-4.4) % Baso % (Auto) 0.3 (0.2-1.2) % Lymph # (Auto) 0.73 L (0.9-3.2) K/mm3 [place] # (Auto) 0.6 (0.1-0.6) K/mm3 Eos # (Auto) 0.1 (0-0.3) K/mm3 Baso # (Auto) 0.0 (0.0-0.1) K/mm3 Abs Immat Gran (auto) 0.05 H (0.00-0.031) K/mm3 Absolute Neuts (auto) 8.9 H (1.3-6.7) K/mm3 Absolute Nucleated RBC 0.000 (0.0-0.012) K/mm3 Nucleated RBC % 0.0 (0.0-0.2) % PT 13.0 (11.1-14.7) Seconds INR 1.0 APTT 26.1 (22.3-36.8) Seconds Sodium 126 L (137-145) mmol/L Potassium 4.0 (3.4-5.0) mmol/L Chloride 93 L (98-107) mmol/L Carbon Dioxide 26 (22-30) mmol/L Anion Gap 7 (4-12) mmol/L BUN 15 (7-17) mg/dL Creatinine 0.74 (0.7-1.0) mg/dL Estim Creat Clear Calc 44 ml/min Estimated GFR > 60 (59 - ) Glucose 242 H (65-110) mg/dL Serum Osmolality Pending Calcium 8.5 (8.4-10.2) mg/dL Total Bilirubin 0.6 (0.2-1.3) mg/dL AST 28 (14-36) U/L ALT 21 (6-35) U/L Alkaline Phosphatase 50 (38-126) U/L Total Protein 7.1 (6.3-8.2) g/dL Albumin 4.0 (3.5-5.1) g/dL Lipase 86 (23-300) U/L TSH Pending Urine Color Yellow (Yellow) Urine Appearance Clear (Clear) Urine pH 7.0 (5.0-9.0) Ur Specific [place] 1.016 (1.001-1.035) Urine Protein Negative (Negative) mg/dL Urine Glucose (UA) 2+ H (Negative) mg/dL Urine Ketones 1+ H (Negative) mg/dL Ur Blood (Man) Negative (Negative) Urine Nitrate Negative (Negative) Urine Bilirubin Negative (Negative) Urine Urobilinogen 1.0 (<2.0) mg/dL Leukocyte Esterase Rfl Trace H (Negative) RONIT/UL Urine RBC 0-2 (0-2) /hpf Urine WBC 0-5 (0-3) /hpf Ur Squamous Epith Cells None seen (Few) /hpf Urine Bacteria None seen /hpf Urine Casts 0-2 Urine Osmolality Pending Ur Random Sodium 111 meq/L Imaging Data Radiologist's impression: ITS Impressions Abdomen/Pelvis CT 10/29/24 09:19 Impression: No significant abnormalities seen. Critical Care Time Critical Care Time Critical Care Time: No Discharge Plan Discharge Clinical Impression: Abdominal pain, Acute hyponatremia Patient Disposition: Still a Patient Condition: Stable Patient Language: Setswana Prescriptions: No Action trospium 20 mg tablet 20 mg PO BID Rx Instructions: administer on an empty stomach hydrochlorothiazide 12.5 mg tablet 12.5 mg PO DAILY Qty: 90 1RF Centrum Silver Women 8 mg iron-400 mcg-300 mcg tablet 1 tablet PO DAILY omega-3 fatty acids [Fish Oil Concentrate] 1,000 mg capsule 2,000 mg PO BID Calcium Chews 650 mg 650 mg BYMOUTH DAILY Patient Comments: . nitroglycerin 0.4 mg tablet, sublingual 0.4 mg sublingual Q5M PRN (Reason: chest pain) Qty: 25 0RF Rx Instructions: do not exceed 3 doses per episode Prolia 60 mg/mL syringe 60 mg subcut [id number] furosemide [Lasix] 20 mg tablet 20 mg PO QAM Qty: 30 3RF (DME) blood-glucose meter [OneTouch Ultra2 Meter] Kit See Rx Instructions .ROUTE .MEDSUPPLY Qty: 1 0RF Rx Instructions: Use to test BS once daily trazodone 50 mg tablet See Rx Instructions .ROUTE .COMPLEX Qty: 180 3RF Dose Instruction: TAKE 1 TO 2 TABLETS BY MOUTH AT BEDTIME FOR SLEEP Rx Instructions: TAKE 1 TO 2 TABLETS BY MOUTH AT BEDTIME FOR SLEEP losartan 100 mg tablet See Rx Instructions .ROUTE .COMPLEX Qty: 100 1RF Dose Instruction: TAKE 1 TABLET BY MOUTH DAILY Rx Instructions: TAKE 1 TABLET BY MOUTH DAILY ferrous sulfate [FeroSul] 325 mg (65 mg iron) tablet See Rx Instructions .ROUTE .COMPLEX Qty: 180 0RF Dose Instruction: TAKE 1 TABLET BY MOUTH TWICE DAILY Rx Instructions: TAKE 1 TABLET BY MOUTH TWICE DAILY ezetimibe 10 mg tablet See Rx Instructions .ROUTE .COMPLEX Qty: 90 0RF Dose Instruction: TAKE 1 TABLET BY MOUTH DAILY Rx Instructions: TAKE 1 TABLET BY MOUTH DAILY escitalopram oxalate 10 mg tablet See Rx Instructions .ROUTE .COMPLEX Qty: 90 3RF Dose Instruction: TAKE 1 TABLET BY MOUTH DAILY Rx Instructions: TAKE 1 TABLET BY MOUTH DAILY pantoprazole 40 mg tablet,delayed release (DR/EC) 40 mg PO BID Qty: 60 4RF gabapentin 600 mg tablet 600 mg PO TID Qty: 270 1RF Rx Instructions: Please D/C the Gabapentin 400mg. Thank you Januvia 100 mg tablet See Rx Instructions .ROUTE .COMPLEX Qty: 90 2RF Dose Instruction: TAKE 1 TABLET BY MOUTH DAILY (STOP METFORMIN) Rx Instructions: TAKE 1 TABLET BY MOUTH DAILY (STOP METFORMIN) (DME) OneTouch Ultra Test Strip See Rx Instructions .ROUTE .COMPLEX Qty: 100 0RF Dose Instruction: USE TO TEST BLOOD SUGAR ONCE DAILY Rx Instructions: USE TO TEST BLOOD SUGAR ONCE DAILY (DME) lancets [OneTouch Delica Plus Lancet] 33 gauge misc See Rx Instructions .ROUTE .COMPLEX Qty: 100 0RF Dose Instruction: TEST BLOOD SUGAR ONCE DAILY Rx Instructions: TEST BLOOD SUGAR ONCE DAILY levothyroxine 88 mcg tablet See Rx Instructions .ROUTE .COMPLEX Qty: 100 0RF Dose Instruction: TAKE 1 TABLET BY MOUTH DAILY Rx Instructions: TAKE 1 TABLET BY MOUTH DAILY Follow-up/Referrals: Min Logan MD [Primary Care Provider] -
[2024-10-29 08:25] LABS: Alanine Aminotransferase 21 U/L (6-35); Albumin Level 4.0 g/dL (3.5-5.1); Alkaline Phosphatase 50 U/L (38-126); Anion Gap 7 mmol/L (4-12); Aspartate Amino Transferase 28 U/L (14-36); Bilirubin,Total 0.6 mg/dL (0.2-1.3); Blood Urea Nitrogen 15 mg/dL (7-17); Calcium 8.5 mg/dL (8.4-10.2); Carbon Dioxide 26 mmol/L (22-30); Chloride 93 mmol/L (98-107); Estimated CRCL calculation 44 ml/min; Estimated Glomerular Filt Rate > 60; Glucose 242 mg/dL (65-110); Lipase 86 U/L (23-300); Potassium 4.0 mmol/L (3.4-5.0); Sodium 126 mmol/L (137-145); Total Protein 7.1 g/dL (6.3-8.2)
[2024-10-29 08:28] LABS: Add Urine Microscopic? YES; Appearance Urine Clear (Clear); Glucose Urine UA 2+ mg/dL (Negative); Leukocyte Esterase Ur Trace LEU/UL (Negative); Nitrate Urine Negative (Negative); Non Pathogenic Casts 0-2; Specific Grav Ur 1.016 (1.001-1.035)
--- OUTSIDE RECORDS SUMMARY | 2024-10-29 08:29 | XMS_ITS | Clinical Summary ---
Author Organization [facility] Address [address] [place] [id number] Care Team Providers Care Roof Promenade Tile Setter Name Role Phone Unavailable Primary Care Provider [...]
--- OUTSIDE RECORDS SUMMARY | 2024-10-29 08:29 | XMS_ITS | Clinical Summary ---
Author Organization [facility] Address [address] [place] [address] Care Team Providers Care Chemical Technician Name Role Phone Min Logan MD Primary Care Provider [phone] Allergies Active Allergy Reactions Criticality Noted Date [...] 1 tablet (88 mcg total) by mouth practice representative before breakfast 90 tablet 1 Active calcium [...] 02/18/2024 Assessment & Plan (02/18/2024 10:09 AM DRAW OPERATOR): I suspect her persistent cough is [...] 02/18/2024 Assessment & Plan (02/18/2024 10:08 AM DRAW OPERATOR): I reassured her that her vocal cords look okay and I recommended no intervention. She understands. Impacted cerumen of right ear 02/18/2024 Assessment & Plan (02/18/2024 9:59 AM DRAW OPERATOR): This ear was cleaned without difficulty. Needs no further intervention. Thoracic spine pain 05/08/2023 Assessment & Plan (05/08/2023 12:14 PM DRAW OPERATOR): Ms. Domínguez has a primary complaint [...] months Assessment & Plan (03/27/2022 1:42 PM DRAW OPERATOR): Treatment options risks and alternatives discussed. [...] months. Assessment & Plan (06/13/2020 12:54 PM DRAW OPERATOR): Images from the original note were [...] diet Assessment & Plan (03/27/2022 1:42 PM DRAW OPERATOR): Chronic, well controlled Continue losartan Low-salt diet Assessment & Plan (08/23/2021 10:49 PM CDT): Chronic, stable. Continue losartan. DASH diet. Assessment & Plan (12/31/2020 3:48 PM CDT): Stable on losartan. Low-salt diet and exercise as tolerated Assessment & Plan (06/13/2020 12:04 PM DRAW OPERATOR): Stable on losartan. Hyperlipidemia associated with type 2 diabetes margaret schwarz 06/13/2020 Assessment & Plan (11/17/2022 12:16 PM CDT): LDL 107, goal less than 100. Continue Zetia Low cholesterol diet Assessment & Plan (03/27/2022 1:40 PM DRAW OPERATOR): Continue Nexlizet. Low cholesterol diet Will request previous labs. Assessment & Plan (08/23/2021 10:51 PM CDT): LDL 107. Continue Nexlizet. Low cholesterol/low-fat diet Assessment & Plan (12/31/2020 3:49 PM CDT): Stable. Continue rosuvastatin 20 mg HS. Assessment & Plan (06/13/2020 12:04 PM DRAW OPERATOR): LDL at goal. Continue rosuvastatin 20 mg HS. Lumbar pseudoarthrosis 06/13/2020 Assessment & Plan (05/08/2023 12:11 PM DRAW OPERATOR): Ms. Domínguez has known lumbar pseudoarthrosis with the bone mineral density of -2.7. This does not seem to be symptomatic at this time. Assessment & Plan (04/18/2022 2:49 PM DRAW OPERATOR): Ms. Domínguez has a known pseudoarthrosis [...] cramps. Assessment & Plan (06/13/2020 12:39 PM DRAW OPERATOR): Management of osteopenia as above. Acquired hypothyroidism 06/10/2020 Assessment & Plan (11/17/2022 12:15 PM CDT): Clinically euthyroid Continue levothyroxine 88 mcg daily TSH today TSH goal 0.3-4.2. TSH annually if at goal. Assessment & Plan (03/27/2022 1:42 PM DRAW OPERATOR): Clinically euthyroid Continue levothyroxine 88 mcg daily. TSH annually Assessment & Plan (08/23/2021 10:49 PM CDT): Clinically and biochemically euthyroid Continue levothyroxine 88 mcg daily. TSH Q 6-12 months. TSH was 0.3-4.2. Assessment & Plan (12/31/2020 3:53 PM CDT): Continue levothyroxine 88 mcg daily. TSH today TSH goal 0.4-4.5. Assessment & Plan (06/13/2020 12:03 PM DRAW OPERATOR): TSH was 0.0 27 in March 2020. TSH goal 0.45-4.5. Avoid TSH suppression due to risk of worsening BMD. Continue levothyroxine 100 mcg daily. Will check TSH. Dose adjustment based on above. 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 Continue metformin 1000 mg b.i.d. and Farxiga 10 mg daily Consistent carb diet A1c today. Annual dilated eye exam Assessment & Plan (03/27/2022 1:41 PM DRAW OPERATOR): Chronic, stable Continue Xigduo mg with [...] tolerated. Assessment & Plan (06/13/2020 12:04 PM DRAW OPERATOR): Well controlled. Hemoglobin A1c 6.4%. Continue [...] patient. Assessment & Plan (06/12/2019 1:22 PM DRAW OPERATOR): Ms. Domínguez is status post L3-L5 [...] Forteo injections. Patient is concerned about the [id number] cost but is aware of some financial [...] point. Assessment & Plan (06/12/2019 1:23 PM DRAW OPERATOR): Ms. Domínguez is doing well in [...] (11/26/2018): Added automatically from request for surgery [id number] Lumbar stenosis with neurogenic claudication 9 06/12/2019 [...] on file Legal Sex Female 2:29 AM DRAW OPERATOR Gender Identity Not on file Sexual Orientation Not on file Occupation Industry Job Start Date Job End Date Retired Not on file Not on file Not on file Obstetrics History Last Filed Vital Signs Vital Sign Reading Time Taken Comments Blood Pressure 110/60 11/17/2022 10:48 AM CDT Pulse 72 11/17/2022 10:48 AM CDT Temperature 36.3 C (97.3 F) 03/27/2022 9:53 AM DRAW OPERATOR Respiratory Rate 18 02/13/2024 10:40 AM [...] history exists Medical Devices Implanted Type Area Tow Feeder Device Identifier Shelf Expiration Date Model / Serial / Lot [employer] [id number] Inqu Paste Mix Plus Rough Rice Tender 10cc Bone Graft Hyaluronic Acid Poly - [id number] Implanted:Qty: 1 on 12/13/2018 by Jose Portillo MD at [facility] N/A: Spine Lumbar [employer] 08/01/2020 [id number] / / [id number] Core Link [id number] [place] 6.5mm 40mm Spine Pedicle Screw Bone 5500 Series - [id number] Implanted:Qty: 2 on 12/13/2018 by Jose Portillo MD at [facility] N/A: Spine Lumbar Core Link 31655-42 / / Core Link [id number] [place] 7mm 40mm Spine Pedicle Screw Bone Nonsterile 5500 Series - [id number] Implanted:Qty: 4 on 12/13/2018 by Jose Portillo MD at [facility] N/A: Spine Lumbar Core Link [id number] / / Core Link [id number] [place] Screw Set 5500 Series - [id number] Implanted:Qty: 6 on 12/13/2018 by Jose Portillo MD at [facility] N/A: Spine Lumbar Core Link [id number] / / Core Link [id number] [place] 5.5mm 65mm Line Prebent Johnie Spinal Nonsterile 5500 Series - [id number] Implanted:Qty: 1 on 12/13/2018 by Jose Portillo MD at [facility] N/A: Spine Lumbar Core Link [id number] / / Procedures Procedure Name Priority Date/Time [...] AM CDT) eGFR 66 mL/min/1. 73 m2 [facility] Comment: Interpretive Data Reference Interval Normal >/= [...] MD LAB BLOOD ORDERABLES F inal Result [facility] [address] Department [place] [address] * (ABNORMAL) Hemoglobin A1c (11/17/2022 11:34 AM CDT) Hgb A1C 7.5(H) 4.0 - 5.6 % [facility] Estimated Average Glucose 169 mg/dL [facility] Comment: The ADA recommends reporting an estimated Average Glucose (eAG) with all Hemoglobin A1c results using the equation derived from a study of 507 normal and diabetic adults. Minority populations were underrepresented and children were not included. (Diabetes Care 31:9071-6494, 2008). The eAG is not equivalent to a fasting glucose. Blood 11/17/2022 11:3 4 AM CDT 11/17/2022 2:52 PM CDT us Josué Ceron MD LAB BLOOD ORDERABLES F inal Result [facility] [address] Department [place] [address] * (ABNORMAL) Lipid panel (12/27/2021 10:00 AM CDT) SCRIBED Cholesterol, Total 202(A) 0 - 200 [facility] LAB SCRIBED HDL 70 50 - 100 [facility] SCRIBED LDL 89 0 - 120 [facility] SCRIBED Triglycerides 84 0 - 200 EXTERNAL LAB Blood 12/27/2021 10:0 0 AM CDT us Generic External Data Provider LAB BLOOD ORDERAB LES Final Result Performing Organization Address City/[facility]/ZIP Co de Phone Number EXTERNAL LAB * Dexa Axial Skeleton Bone Density 1 or 2 Site (12/08/2019) Anatomical Region Laterality Modality Body N/A Radiographic Yara ging us Min Logan MD IMG DXA PROCEDURES Final Resu lt from Last 3 Months or Most Recently Relevant to Health Maintenance Insurance [facility] MEDICARE ADVANTAGE [facility] MEDICARE Address: [facility] [address] [place] [address] [facility] MDCR HMO REF [facility] MEDIC[facility] Address: [address] [address] [place] [address] [facility] MEDICARE ADVANTAGE [facility] MEDIC[facility] Address: [address] [address] [place] [address] Advance Directives For more information, please contact: [phone] * Full Code (Latest Code Status on File) Date Activated Date Inactivated Comments 12/13/2018 1:49 PM 12/14/2018 7:30 PM Care Teams Chemical Technician Relationship Specialty Start Date End Date Min Logan MD [address] [place] [address] PCP - General 11/30/11
--- OUTSIDE RECORDS SUMMARY | 2024-10-29 08:29 | XMS_ITS | Referral Summary ---
Author Organization [facility] C Address [address] [place] [address] Care Team Providers Care Art Objects Salesperson Name Role Phone Min Logan MD Primary Care Provider [phone] Allergies Active Allergy Reactions Criticality Noted Date [...] 1 tablet (88 mcg total) by mouth motor vehicle assembler before breakfast 90 tablet 1 Active calcium [...] 02/18/2024 Assessment & Plan (02/18/2024 10:09 AM MANAGER WORK): I suspect her persistent cough is likely [...] 02/18/2024 Assessment & Plan (02/18/2024 10:08 AM MANAGER WORK): I reassured her that her vocal cords look okay and I recommended no intervention. She understands. Impacted cerumen of right ear 02/18/2024 Assessment & Plan (02/18/2024 9:59 AM MANAGER WORK): This ear was cleaned without difficulty. Needs no further intervention. Thoracic spine pain 05/08/2023 Assessment & Plan (05/08/2023 12:14 PM MANAGER WORK): Ms. Domínguez has a primary complaint of [...] months Assessment & Plan (03/27/2022 1:42 PM MANAGER WORK): Treatment options risks and alternatives discussed. Recommended [...] months. Assessment & Plan (06/13/2020 12:54 PM MANAGER WORK): Images from the original note were not [...] diet Assessment & Plan (03/27/2022 1:42 PM MANAGER WORK): Chronic, well controlled Continue losartan Low-salt diet Assessment & Plan (08/23/2021 10:49 PM CDT): Chronic, stable. Continue losartan. DASH diet. Assessment & Plan (12/31/2020 3:48 PM CDT): Stable on losartan. Low-salt diet and exercise as tolerated Assessment & Plan (06/13/2020 12:04 PM MANAGER WORK): Stable on losartan. Hyperlipidemia associated with type 2 diabetes margaret schwarz 06/13/2020 Assessment & Plan (11/17/2022 12:16 PM CDT): LDL 107, goal less than 100. Continue Zetia Low cholesterol diet Assessment & Plan (03/27/2022 1:40 PM MANAGER WORK): Continue Nexlizet. Low cholesterol diet Will request previous labs. Assessment & Plan (08/23/2021 10:51 PM CDT): LDL 107. Continue Nexlizet. Low cholesterol/low-fat diet Assessment & Plan (12/31/2020 3:49 PM CDT): Stable. Continue rosuvastatin 20 mg HS. Assessment & Plan (06/13/2020 12:04 PM MANAGER WORK): LDL at goal. Continue rosuvastatin 20 mg HS. Lumbar pseudoarthrosis 06/13/2020 Assessment & Plan (05/08/2023 12:11 PM MANAGER WORK): Ms. Domínguez has known lumbar pseudoarthrosis with the bone mineral density of -2.7. This does not seem to be symptomatic at this time. Assessment & Plan (04/18/2022 2:49 PM MANAGER WORK): Ms. Domínguez has a known pseudoarthrosis at [...] cramps. Assessment & Plan (06/13/2020 12:39 PM MANAGER WORK): Management of osteopenia as above. Acquired hypothyroidism 06/10/2020 Assessment & Plan (11/17/2022 12:15 PM CDT): Clinically euthyroid Continue levothyroxine 88 mcg daily TSH today TSH goal 0.3-4.2. TSH annually if at goal. Assessment & Plan (03/27/2022 1:42 PM MANAGER WORK): Clinically euthyroid Continue levothyroxine 88 mcg daily. TSH annually Assessment & Plan (08/23/2021 10:49 PM CDT): Clinically and biochemically euthyroid Continue levothyroxine 88 mcg daily. TSH Q 6-12 months. TSH was 0.3-4.2. Assessment & Plan (12/31/2020 3:53 PM CDT): Continue levothyroxine 88 mcg daily. TSH today TSH goal 0.4-4.5. Assessment & Plan (06/13/2020 12:03 PM MANAGER WORK): TSH was 0.0 27 in March 2020. TSH goal 0.45-4.5. Avoid TSH suppression due to risk of worsening BMD. Continue levothyroxine 100 mcg daily. Will check TSH. Dose adjustment based on above. Type 2 diabetes mellitus wit h circulatory disorder, with long-term current use of insulin ([facility]) 06/10/2020 Assessment & Plan (11/17/2022 12:16 PM CDT): Chronic, stable. Continue metformin 1000 mg b.i.d. and Farxiga 10 mg daily Consistent carb diet A1c today. Annual dilated eye exam Assessment & Plan (03/27/2022 1:41 PM MANAGER WORK): Chronic, stable Continue Xigduo mg with breakfast [...] tolerated. Assessment & Plan (06/13/2020 12:04 PM MANAGER WORK): Well controlled. Hemoglobin A1c 6.4%. Continue Xigduo [...] patient. Assessment & Plan (06/12/2019 1:22 PM MANAGER WORK): Ms. Domínguez is status post L3-L5 decompression [...] Forteo injections. Patient is concerned about the [id number] cost but is aware of some financial [...] point. Assessment & Plan (06/12/2019 1:23 PM MANAGER WORK): Ms. Domínguez is doing well in regards [...] (11/26/2018): Added automatically from request for surgery [id number] Lumbar stenosis with neurogenic claudication 9 06/12/2019 [...] on file Legal Sex Female 2:29 AM MANAGER WORK Gender Identity Not on file Sexual Orientation Not on file Occupation Industry Job Start Date Job End Date Retired Not on file Not on file Not on file Last Filed Vital Signs Vital Sign Reading Time Taken Comments Blood Pressure 110/60 11/17/2022 10:48 AM CDT Pulse 72 11/17/2022 10:48 AM CDT Temperature 36.3 C (97.3 F) 03/27/2022 9:53 AM MANAGER WORK Respiratory Rate 18 02/13/2024 10:40 AM CDT Oxygen Saturation 97% 12/14/2018 12:31 PM CDT Inhaled Oxygen Concentration - - Weight 66.7 kg (147 lb) 02/13/2024 10:40 AM CDT Height 165.1 cm (5' 5) 02/13/2024 10:40 AM CDT Body Mass Index 24.46 02/13/2024 10:40 AM CDT Plan of Treatment Not on file Medical Devices Implanted Type Area Well Tender Device Identifier Shelf Expiration Date Model / Serial / Lot [employer]i [employer] [id number] Inqu Paste Mix Plus Tab Card Press Operator 10cc Bone Graft Hyaluronic Acid Poly - [id number] Implanted:Qty: 1 on 12/13/2018 by Jose Portillo MD at [facility] N/A: Spine Lumbar [employer] 08/01/2020 [id number] / / [id number] Core Link [id number] Duncan 6.5mm 40mm Spine Pedicle Screw Bone 5500 Series - [id number] Implanted:Qty: 2 on 12/13/2018 by Jose Portillo MD at [facility] N/A: Spine Lumbar Core Link [id number] / / Core Link [id number] Duncan 7mm 40mm Spine Pedicle Screw Bone Nonsterile 5500 Series - [id number] Implanted:Qty: 4 on 12/13/2018 by Jose Portillo MD at [facility] N/A: Spine Lumbar Core Link [id number] / / Core Link [id number] Duncan Screw Set 5500 Series - [id number] Implanted:Qty: 6 on 12/13/2018 by Jose Portillo MD at [facility] N/A: Spine Lumbar Core Link [id number] / / Core Link [id number] Duncan 5.5mm 65mm Line Prebent Johnie Spinal Nonsterile 5500 Series - [id number] Implanted:Qty: 1 on 12/13/2018 by Jose Portillo MD at [facility] N/A: Spine Lumbar Core Link [id number] / / Procedures Procedure Name Priority Date/Time [...] Results * eGFR (11/17/2022 11:34 AM CDT) [facility] eGFR 66 mL/min/1. 73 m2 [facility] Comment: Interpretive Data Reference Interval Normal [...] ORDERABLES F inal Result Performing Organization Address City/[facility]/ZIP Co de Phone Number [facility] [address] Department [place] [address] * (ABNORMAL) Hemoglobin A1c (11/17/2022 11:34 AM CDT) Hgb A1C 7.5(H) 4.0 - 5.6 % [facility] Estimated Average Glucose 169 mg/dL [facility] Comment: The ADA recommends reporting an estimated Average Glucose (eAG) with all Hemoglobin A1c results using the equation derived from a study of 507 normal and diabetic adults. Minority populations were underrepresented and children were not included. (Diabetes Care 31:2375-8947, 2008). The eAG is not equivalent to a fasting glucose. Blood 11/17/2022 11:3 4 AM CDT 11/17/2022 2:52 PM CDT Josué Ceron MD LAB BLOOD ORDERABLES F inal Result Performing Organization Address City/[facility]/ZIP Co de Phone Number [facility] [address] Department [place] [address] * (ABNORMAL) Lipid panel (12/27/2021 10:00 AM [...] Recently Relevant to Health Maintenance Insurance [facility] MEDICARE ADVANTAGE [facility] Address: [facility] [address] [place] [address] [facility] MDCR HMO REF [facility] Address: [address] [address] [place] [address] [facility] MEDICARE ADVANTAGE [facility] Address: [address] [address] [place] [address] Advance Directives For more information, please contact: [phone] * Full Code (Latest Code Status on File) Date Activated Date Inactivated Comments 12/13/2018 1:49 PM 12/14/2018 7:30 PM Care Teams Art Objects Salesperson Relationship Specialty Start Date End Date Min Logan MD [address] [facility] [address] [place] [address] PCP - General 11/30/11
[2024-10-29 08:58] LABS: INR 1.0; Prothrombin Time 13.0 Seconds (11.1-14.7)
[2024-10-29 08:59] LABS: Partial Thromboplastin Time 26.1 Seconds (22.3-36.8)
[2024-10-29] MEDS: SODIUM CHLORIDE 0.9% IV 1,000 ML 60 ML IV CONT (10:48)
--- NOTE | 2024-10-29 11:24 | PC.NURSE ---
Dietary called and lunch tray ordered.
[2024-10-29 11:39] LABS: Thyroid Stimulating Hormone 1.760 uIU/mL (0.465-4.680)
--- NOTE | 2024-10-29 12:57 | PC.NURSE ---
Pt. attempted to eat chicken noodle soup and then threw up. Waiting to speak to Dr. Mccracken about antiemetic before transporting pt. to the floor. Report attempted to 2nd medical. Nurse is off the floor and will call ER back.
[2024-10-29] MEDS: ONDANSETRON INJ 4 MG/2 ML VIAL IV PUSH (13:07)
--- NOTE | 2024-10-29 13:21 | ADMGEN ---
This patient, Carolina Domínguez, was admitted to Medical Room 242-01. Patient/family oriented to hospital policies and general routines including ID bracelet, bed and alarms, visiting hours, pain management, procedures, bathroom and other care routines, personal items, smoking policy, room service/diet, and visiting hours. Information on how to activate the Rapid Response Team has been discussed. Patient/Family are encouraged to report perceived risks to care and to ask questions if they do not understand what they are told or what they should do.
[2024-10-29 13:58] LABS: Anion Gap 10 mmol/L (4-12); Blood Urea Nitrogen 11 mg/dL (7-17); Calcium 8.4 mg/dL (8.4-10.2); Carbon Dioxide 22 mmol/L (22-30); Chloride 94 mmol/L (98-107); Estimated CRCL calculation 47 ml/min; Estimated Glomerular Filt Rate > 60; Glucose 249 mg/dL (65-110); Potassium 4.1 mmol/L (3.4-5.0); Sodium 126 mmol/L (137-145)
--- NOTE | 2024-10-29 15:01 | P.HP_ITS ---
H&P: HPI History of Present Illness Date/Time: 10/29/24 15:01 Chief Complaint: abd pain, low sodium Narrative: Patient with history of DM2, hypothyroidism, HTN, Januvia presented with intermittent RLq shouting pain, N/V. Patient notes her symptoms started about 4 weeks ago. work up has been negative and she improved. she also had L foot swelling and has been started on HCTZ. her abd pain has been getting worse for past couple of days. she decided to come to the hospital for further management. she denies any fever, weight loss, urinary symptoms. her appetite is good. last BM was yesterday and was normal. In the Er vital signs were unremarkable. CT abd pelvis unremarkable. LAb test showed hyponatremia. patient was admitted for further management. Review of Systems Review of Systems: All systems reviewed & are unremarkable except as noted in HPI and below PMFSH Past Medical History Medical History Pulmonary nodules Low ferritin Iron deficiency anemia Chronic cough Neutropenia Chest discomfort Hypersomnolence Memory impairment Follow up Tremor Osteoporosis Osteoarthritis of thoracic spine with radiculopathy Body mass index [BMI] 25.0-25.9, adult (10/31/16) Thin nails Skin lesion of cheek Hair loss [place]AD[place]TH (dyspnea on exertion) Chest wall pain BMI 27.0-27.9,adult Statin intolerance BMI 22.0-22.9, adult Itchy skin Fatigue Dark stools Diarrhea Macular degeneration Dry eye Hx of colonic polyps Muscular aches Elevated homocysteine Vaginal delivery x1 Missed x3 Postmenopausal bleeding Hypertension MDD (major depressive disorder) Skin mole Abnormal vaginal bleeding in postmenopausal patient Microscopic hematuria Unintentional weight loss Colon cancer screening Personal history of covid-19 Chronic SI joint pain Degenerative joint disease (DJD) of hip Seasonal allergies Arthritis Anxiety Depression GERD (gastroesophageal reflux disease) Vertigo Vision abnormalities BMI 25.0-25.9,adult Mixed hyperlipidemia Bilateral hip pain Restrictive lung disease Hearing loss Abnormal finding of blood chemistry, unspecified Hypothyroidism (acquired) Benign essential hypertension Chronic low back pain Lumbar spondylosis Pedal edema Bilateral flank pain Abdominal bloating Surgical History Surgical History History of bilateral tubal ligation History of eye surgery cataract removal both eyes H/O dilation and curettage History of section x1 History of back surgery L 3-4-5 fusion Family History Family History Mother Hypertension Family history of malignant neoplasm Father Hypertension Family history of Alzheimer's disease Family history of chronic obstructive pulmonary disease Family history of dementia Sibling Family history of diabetes mellitus in first degree relative Social History Social History Smoking status: Never smoker Second hand tobacco smoke exposure: No Alcohol intake: never Alcohol use details: wine occasionally Substance use: never Substance use type: does not use Do You Feel Safe in your Home?: Yes Lack of Transportation: No Lack of Food: Never True Current Housing: I Have Housing Concerned About Future Housing: No Difficulty Paying Gas/Electric Bills: No Difficulty Paying for Meds: No Currently Unemployed: No Education: High School Diploma/GED Difficulty w/ Childcare or Family Care: No Living arrangements: with family Gender identity (if verbalized by the patient): Female Spiritual care concerns: No Meds Home Medications and Allergies Home Medications ?Medication ?Instructions ?Recorded ?Confirmed ?Type ieofazdq-rxem-[id number] 8 mg-folic 400 1 tablet PO DAILY 05/01/19 10/29/24 History mcg-K 50 mcg-lutein 300 mcg tablet (Centrum [place] Women) omega-3 fatty acids 1,000 mg 2,000 mg PO BID 05/01/19 10/29/24 History capsule (Fish Oil Concentrate) blood-glucose meter (OneTouch #1 ea 11/21/19 10/21/24 Rx Ultra2 Meter kit) Calcium Chews 650 mg BYMOUTH DAILY 08/08/21 10/29/24 History denosumab 60 mg/mL subcutaneous 60 mg subcut [id number] 02/15/23 10/29/24 History syringe (Prolia) trazodone 50 mg tablet See Rx Instructions .Route 12/18/23 10/29/24 Rx .COMPLEX #180 tabs losartan 100 mg tablet See Rx Instructions .Route 05/14/24 10/29/24 Rx .COMPLEX #100 tabs ezetimibe 10 mg tablet See Rx Instructions .Route 06/05/24 10/29/24 Rx .COMPLEX #90 tabs escitalopram oxalate 10 mg tablet See Rx Instructions .Route 06/19/24 10/29/24 Rx .COMPLEX #90 tabs pantoprazole 40 mg tablet,delayed 40 mg PO BID #60 tabs 06/23/24 10/29/24 Rx release trospium 20 mg tablet 20 mg PO BID 06/26/24 10/29/24 History gabapentin 600 mg tablet 600 mg PO TID #270 tabs 07/07/24 10/29/24 Rx sitagliptin phosphate 100 mg See Rx Instructions .Route 07/18/24 10/29/24 Rx tablet (Januvia) .COMPLEX #90 tabs blood sugar diagnostic (WordinaireTouch #100 strips 07/21/24 10/21/24 Rx Ultra Test strips) lancets 33 gauge (OneTouch Delica #100 ea 07/21/24 10/21/24 Rx Plus Lancet) levothyroxine 88 mcg tablet See Rx Instructions .Route 10/06/24 10/29/24 Rx .COMPLEX #100 tabs hydrochlorothiazide 12.5 mg tablet 12.5 mg PO DAILY #90 tabs 10/21/24 10/29/24 Rx ferrous sulfate 325 mg (65 mg 325 mg PO DAILY 10/29/24 10/29/24 History iron) tablet (FeroSul) furosemide 20 mg tablet (Lasix) 20 mg PO QAM PRN edema 10/29/24 10/29/24 History Allergies Allergy/AdvReac Type Severity Reaction Status Date / Time tizanidine AdvReac Intermediate Confusion Verified 10/29/24 07:46 Vital Signs Vital Signs - 24 hr 10/29/24 07:42 10/29/24 10:16 10/29/24 11:22 Temperature 98.5 F Pulse Rate 84 83 86 Respiratory Rate 18 20 14 Blood Pressure 155/71 H 128/49 L 115/45 L Pulse Oximetry 96 100 97 Oxygen Delivery Room Air 10/29/24 13:45 10/29/24 14:03 Temperature 99.2 F Pulse Rate 85 81 Respiratory Rate 18 Blood Pressure 121/51 L Pulse Oximetry 95 Oxygen Delivery Exam Narrative: GENERAL APPEARANCE: WELL-DEVELOPED, WELL-NOURISHED SKIN: NORMAL COLOR HEAD: NORMOCEPHALIC, NONTRAUMATIC EYES: CLEAR CONJUNCTIVA ENT: OROPHARYNX NORMAL, EARS NORMAL, NOSE NORMAL NECK: SUPPLE, NONTENDER CHEST AND RESPIRATORY: AIRWAY PATENT, NO RESPIRATORY DISTRESS, NO ACCESSORY MUSCLE USE HEART: REGULAR RATE/RHYTHM ABDOMEN: SOFT, RIGHT LOWER QUADRANT TENDERNESS NO GUARDING OR REBOUND, NO ORGANOMEGALY, QUIET BOWEL SOUNDS VASCULAR: NORMAL PERIPHERAL PULSES, NORMAL CAPILLARY REFILL. MUSCULOSKELETAL: NORMAL RANGE OF MOTION, NONTENDER BACK NEUROLOGIC: ALERT AND ORIENTED ?3, SPORTS ACTIVITIES FOUL JUDGE IS NORMAL TESTED, NO GROSS MOTOR DEFICIT H&P: Results Labs Labs: Short CBC 10/29/24 Range/Units 07:59 WBC 10.4 H (4.5-10.0) K/mm3 Hgb 12.0 (12.0-15.0) g/dL Hct 34.9 L (37.0-47.0) % Plt Count 153 (150-375) k/mm3 BMP 10/29/24 10/29/24 07:59 13:25 Sodium 126 L 126 L Potassium 4.0 4.1 Chloride 93 L 94 L Carbon Dioxide 26 22 BUN 15 11 Creatinine 0.74 0.69 L Glucose 242 H 249 H Calcium 8.5 8.4 Liver Function 10/29/24 Range/Units 07:59 Total Bilirubin 0.6 (0.2-1.3) mg/dL AST 28 (14-36) U/L ALT 21 (6-35) U/L Alkaline Phosphatase 50 (38-126) U/L Albumin 4.0 (3.5-5.1) g/dL Urine 10/29/24 Range/Units 08:16 Urine Color Yellow (Yellow) Urine Appearance Clear (Clear) Urine pH 7.0 (5.0-9.0) Ur Specific [place] 1.016 (1.001-1.035) Urine Protein Negative (Negative) mg/dL Urine Glucose (UA) 2+ H (Negative) mg/dL Assessment and Plan Assessment and plan (1) Acute hyponatremia: Code(s): E87.1 - Hypo-osmolality and hyponatremia Status: Acute (2) Abdominal pain: Code(s): R10.9 - Unspecified abdominal pain Status: Acute (3) Low back pain: Code(s): M54.50 - Low back pain, unspecified Status: Acute (4) Iron deficiency anemia: Qualifiers: Iron deficiency anemia type: unspecified iron deficiency Qualified Code(s): D50.9 - Iron deficiency anemia, unspecified Code(s): D50.9 - Iron deficiency anemia, unspecified Status: Acute (5) Gastroesophageal reflux disease: Qualifiers: Esophagitis presence: without esophagitis Qualified Code(s): K21.9 - Gastro-esophageal reflux disease without esophagitis Code(s): K21.9 - Gastro-esophageal reflux disease without esophagitis Status: Acute (6) Pedal edema: Code(s): R60.0 - Localized edema Status: Acute (7) Hypothyroidism (acquired): Code(s): E03.9 - Hypothyroidism, unspecified Status: Acute Plan Acute hyponatremia Will Dc HCTZ receiving IVF continue to monitor ABd pain/N/V Ct Abd unremarkable ua unremarkable Plan for colonoscopy as out patient continue to monitor DM2 SSI and accu checks hypothyroidism levothyroxine HTN Losartan
[2024-10-29] MEDS: PANTOPRAZOLE 40 MG TABLET PO (17:23)
[2024-10-29] MEDS: GABAPENTIN 300 MG CAPSULE 600 MG PO (17:23)
[2024-10-29] MEDS: ACETAMINOPHEN 325 MG TABLET 650 MG PO (22:40)
[2024-10-30] VITALS: PULSE 75
[2024-10-30] MEDS: SODIUM CHLORIDE 0.9% IV 1,000 ML 60 ML IV CONT (03:00)
[2024-10-30 04:00] VITALS: PULSE 73
[2024-10-30 05:28] LABS: Hematocrit 32.3 % (37.0-47.0); Hemoglobin 10.4 g/dL (12.0-15.0); Immature Platelet Fraction Pct 3.0 % (0.9-11.2); Mean Corpuscular HGB Conc 32.2 g/dl (32-36); Mean Corpuscular Hemoglobin 32.2 pg (26-34); Mean Corpuscular Volume 100.0 fl (80-100); Platelet Count Result 155 k/mm3 (150-375); Red Blood Count 3.23 M/mm3 (4.2-5.4); White Blood Count 7.4 K/mm3 (4.5-10.0)
[2024-10-30 05:42] LABS: Alanine Aminotransferase 17 U/L (6-35); Albumin Level 3.2 g/dL (3.5-5.1); Alkaline Phosphatase 29 U/L (38-126); Anion Gap 4 mmol/L (4-12); Aspartate Amino Transferase 40 U/L (14-36); Bilirubin,Total 0.8 mg/dL (0.2-1.3); Blood Urea Nitrogen 11 mg/dL (7-17); Calcium 7.8 mg/dL (8.4-10.2); Carbon Dioxide 24 mmol/L (22-30); Chloride 101 mmol/L (98-107); Estimated CRCL calculation 52 ml/min; Estimated Glomerular Filt Rate > 60; Glucose 192 mg/dL (65-110); Potassium 3.7 mmol/L (3.4-5.0); Sodium 129 mmol/L (137-145); Total Protein 6.0 g/dL (6.3-8.2)
[2024-10-30] MEDS: LEVOTHYROXINE SODIUM 88 MCG TABLET BY MOUTH (05:47)
[2024-10-30 06:00] VITALS: BP 122/49; PULSE 85; RESP 18; TEMP 36.8; O2SAT 98
[2024-10-30 08:00] VITALS: PULSE 75
[2024-10-30] MEDS: PANTOPRAZOLE 40 MG TABLET PO (08:43)
[2024-10-30] MEDS: GABAPENTIN 300 MG CAPSULE 600 MG PO (08:43)
[2024-10-30] MEDS: CALCIUM CARBONATE (TUMS) 500 MG (200 MG ELEMENTAL) PO (08:43)
[2024-10-30] MEDS: ESCITALOPRAM OXALATE 10 MG TABLET PO (08:43)
[2024-10-30 11:17] VITALS: O2SAT 96
--- NOTE | 2024-10-30 11:23 | P.DS_ITS ---
DS: Admitting Diagnosis Discharge Date 10/30/24 Admitting Diagnosis Abd pain, Hyponatremia DS: Discharge Diagnosis Discharge Diagnosis (1) Acute hyponatremia: Code(s): E87.1 - Hypo-osmolality and hyponatremia Status: Acute (2) Abdominal pain: Code(s): R10.9 - Unspecified abdominal pain Status: Acute (3) Low back pain: Code(s): M54.50 - Low back pain, unspecified Status: Acute (4) Iron deficiency anemia: Qualifiers: Iron deficiency anemia type: unspecified iron deficiency Qualified Code(s): D50.9 - Iron deficiency anemia, unspecified Code(s): D50.9 - Iron deficiency anemia, unspecified Status: Acute (5) Gastroesophageal reflux disease: Qualifiers: Esophagitis presence: without esophagitis Qualified Code(s): K21.9 - Gastro-esophageal reflux disease without esophagitis Code(s): K21.9 - Gastro-esophageal reflux disease without esophagitis Status: Acute (6) Pedal edema: Code(s): R60.0 - Localized edema Status: Acute (7) Hypothyroidism (acquired): Code(s): E03.9 - Hypothyroidism, unspecified Status: Acute Plan Acute hyponatremia improving Will Dc HCTZ receiving IVF continue to monitor ABd pain/N/V Ct Abd unremarkable U/A unremarkable Plan for colonoscopy as out patient hold off Trospium for now continue to monitor DM2 SSI and accu checks hypothyroidism levothyroxine HTN Losartan DS: Summary Hospital Course Hospital Course: Patient with history of DM2, hypothyroidism, HTN, Januvia presented with intermittent RLq shouting pain, N/V. Patient notes her symptoms started about 4 weeks ago. work up has been negative and she improved. she also had L foot swelling and has been started on HCTZ. her abd pain has been getting worse for past couple of days. she decided to come to the hospital for further management. she denies any fever, weight loss, urinary symptoms. her appetite is good. last BM was yesterday and was normal. In the Er vital signs were unremarkable. CT abd pelvis unremarkable. LAb test showed hyponatremia. patient was admitted for further management. 10/30/24 Patient was seen and examined at bedside. she is feeling better. her abd pain is better. Na is improving. Will discharge patient home. Holding Trospium and discuss with her PCP. Follow with [facility] clinic as outpatient. Follow with PCP in one week. Dc Hydrochlorothiazide as can cause hyponatremia Status at Discharge Overall status at discharge: patient is progressing back to baseline Time Spent with Patient Time attestation: Total time spent providing and/or coordinating discharge services: Time spent: Greater than 30 minutes Exam Narrative: GENERAL APPEARANCE: WELL-DEVELOPED, WELL-NOURISHED SKIN: NORMAL COLOR HEAD: NORMOCEPHALIC, NONTRAUMATIC EYES: CLEAR CONJUNCTIVA ENT: OROPHARYNX NORMAL, EARS NORMAL, NOSE NORMAL NECK: SUPPLE, NONTENDER CHEST AND RESPIRATORY: AIRWAY PATENT, NO RESPIRATORY DISTRESS, NO ACCESSORY MUSCLE USE HEART: REGULAR RATE/RHYTHM ABDOMEN: SOFT, RIGHT LOWER QUADRANT no TENDERNESS NO GUARDING OR REBOUND, NO ORGANOMEGALY, QUIET BOWEL SOUNDS VASCULAR: NORMAL PERIPHERAL PULSES, NORMAL CAPILLARY REFILL. 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 IS NORMAL TESTED, NO GROSS MOTOR DEFICIT DS: Data Data Completed and Pending Labs on day of discharge: Labs from last 24 hours 10/30/24 10/29/24 10/29/24 05:13 21:00 13:25 WBC 7.4 RBC 3.23 L Hgb 10.4 L Hct 32.3 L MCV 100.0 MCH 32.2 MCHC 32.2 RDW 12.0 Plt Count 155 MPV 9.4 % Immature Plt Fraction 3.0 Sodium 129 L 126 L Potassium 3.7 4.1 Chloride 101 94 L Carbon Dioxide 24 22 Anion Gap 4 10 BUN 11 11 Creatinine 0.79 0.69 L Estim Creat Clear Calc 52 47 Estimated GFR > 60 > 60 Glucose 192 H 249 H POC Capillary Glucose 236 H Calcium 7.8 L 8.4 Total Bilirubin 0.8 AST 40 H ALT 17 Alkaline Phosphatase 29 L Total Protein 6.0 L Albumin 3.2 L TSH 10/29/24 07:59 WBC RBC Hgb Hct MCV MCH MCHC RDW Plt Count MPV % Immature Plt Fraction Sodium Potassium Chloride Carbon Dioxide Anion Gap BUN Creatinine Estim Creat Clear Calc Estimated GFR Glucose POC Capillary Glucose Calcium Total Bilirubin AST ALT Alkaline Phosphatase Total Protein Albumin TSH 1.760 Discharge Plan Discharge Attending physician on discharge: Michael Feng Discharging Clinician: Michael Feng Anticipated Discharge Date/Time: 10/30/24 11:28 Patient Disposition: Home Activity: as tolerated Diet: heart healthy Discharge Instructions: Holding Trospium and discuss with her PCP. Follow with Gi clinic as outpatient. Follow with PCP in one week. Dc Hydrochlorothiazide as can cause hyponatremia Patient Instructions: Antibiotic Form Patient Language: Turkish Stand Alone Forms: General Discharge Information Follow-up/Referrals: Min Logan MD [Primary Care Provider] - 1 Week Discharge Medications: Continued Centrum Silver Women 8 mg iron-400 mcg-300 mcg tablet 1 tablet PO DAILY omega-3 fatty acids [Fish Oil Concentrate] 1,000 mg capsule 2,000 mg PO BID Calcium Chews 650 mg 650 mg BYMOUTH DAILY Patient Comments: . Prolia 60 mg/mL syringe 60 mg subcut [id number] ferrous sulfate [FeroSul] 325 mg (65 mg iron) tablet 325 mg PO DAILY Rx Instructions: TAKE 1 TABLET BY MOUTH TWICE DAILY furosemide [Lasix] 20 mg tablet 20 mg PO QAM PRN (Reason: edema) (DME) blood-glucose meter [Excelimmune Ultra2 Meter] Kit See Rx Instructions .ROUTE .MEDSUPPLY Qty: 1 0RF Rx Instructions: Use to test BS once daily trazodone 50 mg tablet See Rx Instructions .ROUTE .COMPLEX Qty: 180 3RF Dose Instruction: TAKE 1 TO 2 TABLETS BY MOUTH AT BEDTIME FOR SLEEP Rx Instructions: TAKE 1 TO 2 TABLETS BY MOUTH AT BEDTIME FOR SLEEP losartan 100 mg tablet See Rx Instructions .ROUTE .COMPLEX Qty: 100 1RF Dose Instruction: TAKE 1 TABLET BY MOUTH DAILY Rx Instructions: TAKE 1 TABLET BY MOUTH DAILY ezetimibe 10 mg tablet See Rx Instructions .ROUTE .COMPLEX Qty: 90 0RF Dose Instruction: TAKE 1 TABLET BY MOUTH DAILY Rx Instructions: TAKE 1 TABLET BY MOUTH DAILY escitalopram oxalate 10 mg tablet See Rx Instructions .ROUTE .COMPLEX Qty: 90 3RF Dose Instruction: TAKE 1 TABLET BY MOUTH DAILY Rx Instructions: TAKE 1 TABLET BY MOUTH DAILY pantoprazole 40 mg tablet,delayed release (DR/EC) 40 mg PO BID Qty: 60 4RF gabapentin 600 mg tablet 600 mg PO TID Qty: 270 1RF Rx Instructions: Please D/C the Gabapentin 400mg. Thank you Januvia 100 mg tablet See Rx Instructions .ROUTE .COMPLEX Qty: 90 2RF Dose Instruction: TAKE 1 TABLET BY MOUTH DAILY (STOP METFORMIN) Rx Instructions: TAKE 1 TABLET BY MOUTH DAILY (STOP METFORMIN) (DME) OneTouch Ultra Test Strip See Rx Instructions .ROUTE .COMPLEX Qty: 100 0RF Dose Instruction: USE TO TEST BLOOD SUGAR ONCE DAILY Rx Instructions: USE TO TEST BLOOD SUGAR ONCE DAILY (DME) lancets [OneTouch Delica Plus Lancet] 33 gauge misc See Rx Instructions .ROUTE .COMPLEX Qty: 100 0RF Dose Instruction: TEST BLOOD SUGAR ONCE DAILY Rx Instructions: TEST BLOOD SUGAR ONCE DAILY levothyroxine 88 mcg tablet See Rx Instructions .ROUTE .COMPLEX Qty: 100 0RF Dose Instruction: TAKE 1 TABLET BY MOUTH DAILY Rx Instructions: TAKE 1 TABLET BY MOUTH DAILY Discontinued trospium 20 mg tablet 20 mg PO BID Rx Instructions: administer on an empty stomach hydrochlorothiazide 12.5 mg tablet 12.5 mg PO DAILY Qty: 90 1RF Date of admission: 10/29/24 12:25 Primary Care Provider: Min Logan Admitting Provider: Michael Feng Attending physician on admission: Michael Feng Condition: Stable
[2024-10-31 00:07] LABS: Osmolality, Urine 565 mOsmol/kg (.)
[2024-11-01 06:07] LABS: Osmolality, Serum 269 mOsmol/kg (280-301)
== END 2024-10-30 11:50 | disposition home or self-care (01) ==
LOC: ANHED 10:43 → ANH2MED 12:45
PROVIDERS: Admitting Provider Internal Medicine; Emergency Provider Emergency Medicine; PCP Internal Medicine; Visit Provider Internal Medicine
DX: E87.1 Hypo-osmolality and hyponatremia (principal); R10.31 Right lower quadrant pain; M54.50 Low back pain, unspecified; D50.9 Iron deficiency anemia, unspecified; K21.9 Gastro-esophageal reflux disease without esophagitis; R60.0 Localized edema; E03.9 Hypothyroidism, unspecified; E11.9 Type 2 diabetes mellitus without complications; I10 Essential (primary) hypertension; E78.2 Mixed hyperlipidemia; Z86.16 Personal history of COVID-19; Z79.82 Long term (current) use of aspirin; Z79.85 Long-term (current) use of injectable non-insulin antidiabetic drugs; Z79.84 Long term (current) use of oral hypoglycemic drugs; Z79.899 Other long term (current) drug therapy
CPT/HCPCS: 36415; 74177; 80048; 80053; 81001; 82948; 83690; 83930; 83935; 84300; 84443; 85025; 85027; 85055; 85610; 85730; 93005; 96374; 99285; A9270; G0378; J2405; J7030; Q9967

== ENCOUNTER 2024-11-19 10:05 | Outpatient (CLI) | payer MEDICARE, SELFPAY ==
--- OUTSIDE RECORDS SUMMARY | 2024-11-19 10:38 | XMS_ITS | Clinical Summary ---
Author Organization [facility] Address [address] [place] [address] Care Team Providers Care Clinical Team Manager Name Role Phone Unavailable Primary Care [...] Health Maintenance Due Date Last Done Comments Hepatitis C Virus (HCV) Screening 1940 TdaP Immunization 1940 Zoster Immunization (2 of 3) 03/22/2012 01/26/2012 Pneumococcal Immunization (50+ years) (2 of 2 - PCV) 11/11/2015 11/10/2014, 11/05/2014 Respiratory Syncytial Virus (RSV) Immunization (Adult) (1 - 1-dose 75+ series) 2017 SARS-COV-2 Immunization ( season) 2023 02/18/2021, 07/04/2020, 06/12/2020 Influenza Immunization (#1) 12/15/202412/15, 01/22/2018, 01/12/2017, Additional history exists Pneumococcal Immunization Combined Discontinued 11/10/2014, 11/05/2014 Hepatitis B Immunization Aged Out No longer eligible based on patient's age to complete this topic Human Papillomavirus (HPV) Immunization Aged Out No longer eligible based on patient's age to complete this topic Meningococcal Immunization (ACWY) Aged Out No longer eligible based on patient's age to complete this topic Rotavirus Immunization Aged Out No lo nger eligible based on patient's age to complete this topic Insurance [employer] on file
--- OUTSIDE RECORDS SUMMARY | 2024-11-19 10:38 | XMS_ITS | Patient Health Record ---
Author Organization [facility] As [employer] Address [address] [place] [address] Care Team Providers Care Tent Assembler Name Role Phone Priyanka Clayton Unavailable [phone] Reason For Referral No Information Medications Medication [...] Coverage End Date [place] [address] [place] [address] [id number] NATA JOHNSON, VENKATESH Self - patient is the insured [employer] Medicare Supplement [address] [place] [address] [id number] [facility], VENKATESH Self - patient is the insured
--- OUTSIDE RECORDS SUMMARY | 2024-11-19 10:38 | XMS_ITS | Clinical Summary ---
Author Organization [facility] Address [address] [place] [address] Care Team Providers Care Salon/Spa Manager Name Role Phone Min Logan MD Primary Care Provider [phone] Allergies Active Allergy Reactions Criticality Noted Date [...] 1 tablet (88 mcg total) by mouth ball maker before breakfast 90 tablet 1 Active calcium [...] 02/18/2024 Assessment & Plan (02/18/2024 10:09 AM COMMODITY BROKER): I suspect her persistent cough is likely [...] 02/18/2024 Assessment & Plan (02/18/2024 10:08 AM COMMODITY BROKER): I reassured her that her vocal cords look okay and I recommended no intervention. She understands. Impacted cerumen of right ear 02/18/2024 Assessment & Plan (02/18/2024 9:59 AM COMMODITY BROKER): This ear was cleaned without difficulty. Needs no further intervention. Thoracic spine pain 05/08/2023 Assessment & Plan (05/08/2023 12:14 PM COMMODITY BROKER): Ms. Domínguez has a primary complaint of [...] months Assessment & Plan (03/27/2022 1:42 PM COMMODITY BROKER): Treatment options risks and alternatives discussed. Recommended [...] months. Assessment & Plan (06/13/2020 12:54 PM COMMODITY BROKER): Images from the original note were not [...] diet Assessment & Plan (03/27/2022 1:42 PM COMMODITY BROKER): Chronic, well controlled Continue losartan Low-salt diet Assessment & Plan (08/23/2021 10:49 PM CDT): Chronic, stable. Continue losartan. DASH diet. Assessment & Plan (12/31/2020 3:48 PM CDT): Stable on losartan. Low-salt diet and exercise as tolerated Assessment & Plan (06/13/2020 12:04 PM COMMODITY BROKER): Stable on losartan. Hyperlipidemia associated with type 2 diabetes margaret schwarz 06/13/2020 Assessment & Plan (11/17/2022 12:16 PM CDT): LDL 107, goal less than 100. Continue Zetia Low cholesterol diet Assessment & Plan (03/27/2022 1:40 PM COMMODITY BROKER): Continue Nexlizet. Low cholesterol diet Will request previous labs. Assessment & Plan (08/23/2021 10:51 PM CDT): LDL 107. Continue Nexlizet. Low cholesterol/low-fat diet Assessment & Plan (12/31/2020 3:49 PM CDT): Stable. Continue rosuvastatin 20 mg HS. Assessment & Plan (06/13/2020 12:04 PM COMMODITY BROKER): LDL at goal. Continue rosuvastatin 20 mg HS. 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 This does not seem to be symptomatic at this time. Assessment & Plan (04/18/2022 2:49 PM COMMODITY BROKER): Ms. Domínguez has a known pseudoarthrosis at [...] cramps. Assessment & Plan (06/13/2020 12:39 PM COMMODITY BROKER): Management of osteopenia as above. Acquired hypothyroidism 06/10/2020 Assessment & Plan (11/17/2022 12:15 PM CDT): Clinically euthyroid Continue levothyroxine 88 mcg daily TSH today TSH goal 0.3-4.2. TSH annually if at goal. Assessment & Plan (03/27/2022 1:42 PM COMMODITY BROKER): Clinically euthyroid Continue levothyroxine 88 mcg daily. TSH annually Assessment & Plan (08/23/2021 10:49 PM CDT): Clinically and biochemically euthyroid Continue levothyroxine 88 mcg daily. TSH Q 6-12 months. TSH was 0.3-4.2. Assessment & Plan (12/31/2020 3:53 PM CDT): Continue levothyroxine 88 mcg daily. TSH today TSH goal 0.4-4.5. Assessment & Plan (06/13/2020 12:03 PM COMMODITY BROKER): TSH was 0.0 27 in March 2020. TSH goal 0.45-4.5. Avoid TSH suppression due to risk of worsening BMD. Continue levothyroxine 100 mcg daily. Will check TSH. Dose adjustment based on above. Type 2 diabetes mellitus wit h circulatory disorder, with long-term current use of insulin ([facility]) 06/10/2020 Assessment & Plan (11/17/2022 12:16 PM CDT): Chronic, stable. Continue metformin 1000 mg b.i.d. and Farxiga 10 mg daily Consistent carb diet A1c today. Annual dilated eye exam Assessment & Plan (03/27/2022 1:41 PM COMMODITY BROKER): Chronic, stable Continue Xigduo mg with breakfast [...] tolerated. Assessment & Plan (06/13/2020 12:04 PM COMMODITY BROKER): Well controlled. Hemoglobin A1c 6.4%. Continue Xigduo [...] patient. Assessment & Plan (06/12/2019 1:22 PM COMMODITY BROKER): Ms. Domínguez is status post L3-L5 decompression [...] Forteo injections. Patient is concerned about the aim-fx-[id number] cost but is aware of some financial [...] point. Assessment & Plan (06/12/2019 1:23 PM COMMODITY BROKER): Ms. Domínguez is doing well in regards [...] (11/26/2018): Added automatically from request for surgery [id number] Lumbar stenosis with neurogenic claudication 9 06/12/2019 [...] Bilateral Spinal stenosis Type 2 diabetes mellitus Allergies PVD (peripheral vascular disease) HL (hearing [...] on file Legal Sex Female 2:29 AM COMMODITY BROKER Gender Identity Not on file Sexual Orientation Not on file Occupation Industry Job Start Date Job End Date Retired Not on file Not on file Not on file Obstetrics History Last Filed Vital Signs Vital Sign Reading Time Taken Comments Blood Pressure 110/60 11/17/2022 10:48 AM CDT Pulse 72 11/17/2022 10:48 AM CDT Temperature 36.3 C (97.3 F) 03/27/2022 9:53 AM COMMODITY BROKER Respiratory Rate 18 02/13/2024 10:40 AM CDT [...] history exists Medical Devices Implanted Type Area Site Worker Device Identifier Shelf Expiration Date Model / Serial / Lot [employer] [id number] Inqu Paste Mix Plus Sort Line Worker 10cc Bone Graft Hyaluronic Acid Poly - [id number] Implanted:Qty: 1 on 12/13/2018 by Jose Portillo MD at [facility] N/A: Spine Lumbar [employer] 08/01/2020 [id number] / / [id number] Core Link [id number] Maynard 6.5mm 40mm Spine Pedicle Screw Bone 5500 Series - [id number] Implanted:Qty: 2 on 12/13/2018 by Jose Portillo MD at [facility] N/A: Spine Lumbar Core Link [id number] / / Core Link [id number] Maynard 7mm 40mm Spine Pedicle Screw Bone Nonsterile 5500 Series - [id number] Implanted:Qty: 4 on 12/13/2018 by Jose Portillo MD at [facility] N/A: Spine Lumbar Core Link [id number] / / Core Link [id number] Maynard Screw Set 5500 Series - [id number] Implanted:Qty: 6 on 12/13/2018 by Jose Portillo MD at [facility] N/A: Spine Lumbar Core Link [id number] / / Core Link [id number] Maynard 5.5mm 65mm Line Prebent Johnie Spinal Nonsterile 5500 Series - [id number] Implanted:Qty: 1 on 12/13/2018 by Jose Portillo MD at [facility] N/A: Spine Lumbar Core Link [id number] / / Procedures Procedure Name Priority Date/Time [...] [address] [place] [address] * (ABNORMAL) Hemoglobin A1c (11/17/2022 11:34 AM [...] and children were not included. (Diabetes Care 31:1713-6307, 2008). The eAG is not equivalent to a fasting glucose. Blood 11/17/2022 11:3 4 AM CDT 11/17/2022 2:52 PM CDT us Josué Ceron MD LAB BLOOD ORDERABLES F inal Result [facility] [address] [place] [address] * (ABNORMAL) Lipid panel (12/27/2021 10:00 AM CDT) SCRIBED Cholesterol, Total 202(A) 0 - 200 EXTERNAL LAB SCRIBED HDL 70 50 - 100 EXTERNAL LAB SCRIBED LDL 89 0 - 120 EXTERNAL LAB SCRIBED Triglycerides 84 0 - 200 EXTERNAL LAB Blood 12/27/2021 10:0 0 AM CDT us Generic External Data Provider LAB BLOOD ORDERAB LES Final Result Performing Organization Address [facility]/ZIP Co de Phone Number EXTERNAL LAB * Dexa Axial Skeleton Bone Density 1 or 2 Site (12/08/2019) Anatomical Region Laterality Modality Body N/A Radiographic Yara ging us Min Logan MD IMG DXA PROCEDURES Final Resu lt from Last 3 Months or Most Recently Relevant to Health Maintenance Insurance [facility] [place] [address] [facility] MDCR HMO REF [facility] MEDICARE ADVANTAGE Advance Directives For more information, please contact: [phone] * Full Code (Latest Code Status on File) Date Activated Date Inactivated Comments 12/13/2018 1:49 PM 12/14/2018 7:30 PM Care Teams Salon/Spa Manager Relationship Specialty Start Date End Date Min Logan MD [address] [place] [address] PCP - General 11/30/11
[2024-11-19 10:44] LABS: Hematocrit 35.2 % (37.0-47.0); Hemoglobin 11.5 g/dL (12.0-15.0); Immature Granulocyte Percent A 0.5 % (0-0.5); Lymphocytes Absolute Auto 1.05 K/mm3 (0.9-3.2); Mean Corpuscular HGB Conc 32.7 g/dl (32-36); Mean Corpuscular Hemoglobin 32.1 pg (26-34); Mean Corpuscular Volume 98.3 fl (80-100); Nucleated Red Blood Cells Absolute Auto 0.000 K/mm3 (0.0-0.012); Nucleated Red Blood Cells Perc 0.0 % (0.0-0.2); Platelet Count Result 279 k/mm3 (150-375); Red Blood Count 3.58 M/mm3 (4.2-5.4); White Blood Count 4.4 K/mm3 (4.5-10.0)
[2024-11-19 11:03] LABS: Hemoglobin A1C 8.4 % (<5.7)
[2024-11-19 11:06] LABS: Alanine Aminotransferase 15 U/L (6-35); Albumin Level 3.9 g/dL (3.5-5.1); Alkaline Phosphatase 64 U/L (38-126); Anion Gap 7 mmol/L (4-12); Aspartate Amino Transferase 27 U/L (14-36); Bilirubin,Total 0.4 mg/dL (0.2-1.3); Blood Urea Nitrogen 18 mg/dL (7-17); Calcium 9.2 mg/dL (8.4-10.2); Carbon Dioxide 28 mmol/L (22-30); Chloride 100 mmol/L (98-107); Cholesterol 192 mg/dL (0-200); Estimated Glomerular Filt Rate > 60; Glucose 230 mg/dL (65-110); HDL Direct 56 mg/dL; Iron 111 ug/dL (37-170); Potassium 5.0 mmol/L (3.4-5.0); Sodium 135 mmol/L (137-145); Total Protein 7.5 g/dL (6.3-8.2); Triglycerides 93 mg/dL (<150)
[2024-11-19 11:17] LABS: Percent Iron Saturation 39 % (20-50)
[2024-11-19 11:30] LABS: Free T4 Free Thyroxine 1.31 ng/dL (0.78-2.19)
[2024-11-19 11:42] LABS: Thyroid Stimulating Hormone 1.000 uIU/mL (0.465-4.680)
[2024-11-19 11:47] LABS: Add Urine Microscopic? YES; Appearance Urine Clear (Clear); Glucose Urine UA Negative (Negative); Leukocyte Esterase Ur Trace LEU/UL (Negative); Nitrate Urine Negative (Negative); Non Pathogenic Casts 0-2; Specific Grav Ur 1.010 (1.001-1.035)
[2024-11-19 11:48] LABS: Ferritin 164.00 ng/mL (11.1-264)
[2024-11-19 14:35] LABS: MALB Creatinine Ratio < 11.2 mg/g (0-30)
== END 2024-11-19 10:06 | disposition home or self-care (01) ==
PROVIDERS: PCP Internal Medicine; Visit Provider Internal Medicine
DX: E78.2 Mixed hyperlipidemia (principal); R10.9 Unspecified abdominal pain; D50.9 Iron deficiency anemia, unspecified; R79.0 Abnormal level of blood mineral; D64.9 Anemia, unspecified; E03.9 Hypothyroidism, unspecified; E11.9 Type 2 diabetes mellitus without complications; I10 Essential (primary) hypertension; R30.0 Dysuria
CPT/HCPCS: 36415; 80053; 80061; 81001; 82043; 82728; 83036; 83540; 83550; 84439; 84443; 85025